=== PATIENT | male | born 1940 | race Two or more races ===

== ENCOUNTER 2023-11-26 10:58 | Outpatient (OUT) | payer MEDICARE, SELFPAY ==
--- NOTE | 2023-11-26 11:04 | XR_ITS ---
The [address] [address] Patient Name: HUSSAIN AUGUSTE MRN: [id number] date: 1940 Sex: M Assigned Patient Location: [facility] Current Patient Location: [facility] Accession/Order Number: [id number] Exam Date: 11/26/2023 11:45 Report Date: 11/26/2023 12:51 At the request of: GARETT VINCENT Procedure: XR chest 2V PROCEDURE: XR chest 2V DATE: 11/26/2023 10:45 AM CDT COMPARISONS: None. CLINICAL INDICATION: 83 years Male Preop exam FINDINGS: The cardiomediastinal silhouette and pulmonary vasculature are within normal limits. Poststernotomy changes are identified. Slight increase interstitial markings overlie the left lower lung field possibly caused by left breast tissue overlying the chest. Overall, the lungs are essentially clear. No evidence of consolidating infiltrates, masses or nodules. There is no evidence of pleural effusion or pneumothorax. XR/XR chest 2V IMPRESSION: Chest radiograph is essentially within normal limits. Electronically authenticated by: EDWIN TAYLOR Date: 11/26/2023 12:51
--- NOTE | 2023-11-26 11:55 | PM.PRESUREVA ---
History of Present Illness History of Present Illness Chief complaint: bladder tumor Narrative: Patient presents for preadmission testing accompanied by his . The patient states he has hematuria and small urinary blood clots and was evaluated with a ultrasound and it was determined that he has a bladder mass. The patient denies dysuria or fever. Review of Systems ROS Narrative REVIEW OF SYSTEMS: Negative except as stated in HPI, ten or more systems reviewed. Constitutional: No fever, chills, weakness ENT: No sore throat or epistaxis Cardiovascular: No edema, chest pain, palpitations, or Dyspnea on exertion Respiratory: No shortness of breath, cough, or wheezing Musculoskeletal: No joint pain or swelling Gastrointestinal: No abdominal pain, constipation, diarrhea, or vomiting Neurological: No numbness, tingling, weakness, or headache Psychiatric: No mood changes [facility] Medical History (Updated 11/26/23 @ 11:30 by Kassy Delgado NP) COVID-19 ?U07.1 - COVID-19 (ICD-10) Constipation ?K59.00 - Constipation, unspecified (ICD-10) Urge incontinence ?N39.41 - Urge incontinence (ICD-10) Nocturia ?R35.1 - Nocturia (ICD-10) Kidney stones ?N20.0 - Calculus of kidney (ICD-10) Dysuria ?R30.0 - Dysuria (ICD-10) BPH with obstruction/lower urinary tract symptoms ?N40.1 - Benign prostatic hyperplasia with lower urinary tract symptoms (ICD-10) ?N13.8 - Other obstructive and reflux uropathy (ICD-10) Asymptomatic microscopic hematuria ?R31.21 - Asymptomatic microscopic hematuria (ICD-10) Encounter for incision and drainage procedure ?Z76.89 - Persons encountering health services in other specified circumstances (ICD-10) Seasonal allergies ?J30.2 - Other seasonal allergic rhinitis (ICD-10) History of brachytherapy ?Z92.3 - Personal history of irradiation (ICD-10) Diabetes ?E11.9 - Type 2 diabetes mellitus without complications (ICD-10) Renal cyst ?N28.1 - Cyst of kidney, acquired (ICD-10) Hematuria ?R31.9 - Hematuria, unspecified (ICD-10) Bladder tumor ?D49.4 - Neoplasm of unspecified behavior of bladder (ICD-10) Prostate cancer ?C61 - Malignant neoplasm of prostate (ICD-10) Arthritis ?M19.90 - Unspecified osteoarthritis, unspecified site (ICD-10) Chronic renal insufficiency ?N18.9 - Chronic kidney disease, unspecified (ICD-10) Angina pectoris ?I20.9 - Angina pectoris, unspecified (ICD-10) Dyslipidemia ?E78.5 - Hyperlipidemia, unspecified (ICD-10) Hematoma of abdominal wall ?S30.1XXA - Contusion of abdominal wall, initial encounter (ICD-10) Mass of anterior abdominal wall ?R22.2 - Localized swelling, mass and lump, trunk (ICD-10) CAD (coronary artery disease) ?I25.10 - Atherosclerotic heart disease of [place] coronary artery without angina pectoris (ICD-10) Hypertension ?I10 - Essential (primary) hypertension (ICD-10) Surgical History (Updated 11/26/23 @ 11:13 by Kassy Delgado NP) H/O cystoscopy ?Z98.890 - Other specified postprocedural states (ICD-10) Hx of tonsillectomy ?Z90.89 - Acquired absence of other organs (ICD-10) History of prostate surgery ?Z98.890 - Other specified postprocedural states (ICD-10) History of hernia repair ?Z98.890 - Other specified postprocedural states (ICD-10) ?Z87.19 - Personal history of other diseases of the digestive system (ICD-10) History of appendectomy ?Z90.49 - Acquired absence of other specified parts of digestive tract (ICD-10) Hx of CABG ?Z95.1 - Presence of aortocoronary bypass graft (ICD-10) H/O colonoscopy ?Z98.890 - Other specified postprocedural states (ICD-10) Family History (Updated 11/26/23 @ 11:26 by Kassy Delgado NP) Other Breast cancer Colon cancer Family history of myocardial infarction Heart disease Social History (Updated 11/26/23 @ 11:23 by Kassy Delgado NP) Within the past year, how often did you have a drink containing alcohol: never Score interpretation: A score less than 4 is consistent with normal alcohol consumption. Smoking status: Never smoker Non-prescribed substance use: denies use Highest level of school completed/degree received: high school graduate Meds Home Medications and Allergies Allergies Allergy/AdvReac Type Severity Reaction Status Date / Time Iodinated Contrast Media Allergy Hives Verified 11/26/23 11:18 Penicillins Allergy Hives Verified 11/26/23 11:18 Exam Narrative Exam Narrative: Constitutional: Awake, alert, Very pleasant, comfortable, well-appearing, nontoxic, interactive, vital signs as charted Head: Normocephalic, atraumatic Neck: Supple, normal appearance, normal range of motion, no meningeal signs, no lymphadenopathy Respiratory: No respiratory distress, breath sounds clear Cardiovascular: Regular rate and rhythm, strong and regular heart tones Abdomen: Nontender, normal bowel sounds, soft, no CVA tenderness Musculoskeletal: Normal gait, no swelling or edema Skin: No rashes or induration, no lesions, only visible skin inspected Neuro: No neurological deficits, normal sensation Psychiatric: Oriented ?3, normal affect Assessment and Plan Assessment and Plan (1) Bladder tumor: (2) Hematuria: Plan Cystoscopy, bilateral retrograde, bilateral ureteroscopy, TURBT, possible left stent placement scheduled with Dr. Muhammad December 12, 2023.
[2023-11-26 12:43] LABS: Basophils Absolute Auto 0.1 10^3/uL (0.0-0.1); Basophils Percent Auto 0.5 % (0.2-2.0); Eosinophils Absolute Auto 0.2 10^3/uL (0.0-0.7); Eosinophils Percent Auto 1.7 % (0.9-7.0); Hematocrit 37.5 % (42.0-54.0); Hemoglobin 12.3 g/dL (14.0-18.0); Immature Granulocytes Abs Auto 0.05 10^3/uL (0.00-0.03); Immature Granulocytes Pct Auto 0.5 % (0.0-0.5); Lymphocytes Absolute Auto 1.6 10^3/uL (1.2-3.8); Mean Corpuscular HGB Conc 32.8 g/dL (29.9-35.2); Mean Corpuscular Hemoglobin 29.9 pg (25.9-34.0); Mean Corpuscular Volume 91.2 fL (80.0-94.0); Mean Platelet Volume 11.2 fL (9.5-13.5); Monocytes Absolute Auto 0.8 10^3/uL (0.3-0.8); Monocytes Percent Auto 8.7 % (1.7-12.0); Neutrophils Absolute Auto 6.6 10^3/uL (1.4-6.5); Neutrophils Percent Auto 71.6 % (43.0-75.0); Platelet Count 181 10^3/uL (150-450); Red Blood Count 4.11 10^6/uL (4.70-6.10); Red Cell Distribution Width 16.2 % (11.0-15.0); White Blood Count 9.2 10^3/uL (4.0-11.0)
[2023-11-26 12:50] LABS: INR 1.03; Partial Thromboplastin Time 31.6 sec (22.3-36.2); Prothrombin Time 10.9 sec (9.0-11.6)
[2023-11-26 13:40] LABS: Anion Gap 14.4; BUN Creatinine Ratio 16.7; Carbon Dioxide 25.8 mmol/L (21.0-32.0); Chloride 104 mmol/L (98-107); Estimated GFR (African America 34 (>=60); Estimated GFR (Non-African Ame 28 (>=60); Glucose 120 mg/dL (74-106); Potassium 4.2 mmol/L (3.5-5.1); Sodium 140 mmol/L (136-145)
== END 2023-11-26 10:59 | disposition home or self-care (01) ==
LOC: PST 11:02
PROVIDERS: PCP Family Medicine; Visit Provider Urology
DX: Z01.810 Encounter for preprocedural cardiovascular examination (principal); Z01.812 Encounter for preprocedural laboratory examination; Z01.818 Encounter for other preprocedural examination; D49.4 Neoplasm of unspecified behavior of bladder
CPT/HCPCS: 71046; 80048; 85025; 85610; 85730; G0463

== ENCOUNTER 2023-12-12 07:43 | Day surgery (SDC) | payer MEDICARE, SELFPAY ==
[2023-11-26 11:44] VITALS: BP 120/60; PULSE 59; TEMP 36.3; O2SAT 96; BMI 31.1
[2023-12-12] VITALS (13 sets, daily range): BP systolic 127–156; BP diastolic 64–76; PULSE 50–62; TEMP 36.1–36.9; O2SAT 92–96; BMI 30.5
--- NOTE | 2023-12-12 | FL_ITS ---
The [address] [address] Patient Name: HUSSAIN AUGUSTE MRN: [id number] date: 1940 Sex: M Assigned Patient Location: [facility] Current Patient Location: Accession/Order Number: [id number] Exam Date: 12/12/2023 10:25 Report Date: 12/13/2023 06:42 At the request of: GARETT VINCENT Procedure: FL fluoroscopy <1hr NON-READ EXAM: FL fluoroscopy <1hr NON-READ HISTORY: TECHNIQUE: FINDINGS: Please see Operative Report. Electronically authenticated by: RADIOLOGIST NO Date: 12/13/2023 06:42
--- OUTSIDE RECORDS SUMMARY | 2023-12-12 07:48 | XMS_ITS | CCD ---
Author Organization [facility] Care Team Providers Care Director Of Cardiopulmonary Services Name Role Phone Braulio Linares Unavailable BOYD, RUGEN M Primary Care Physician Kassy Grey CNP Primary Care Provider [phone] Kassy Grey CNP Attending Unavailable AGAPITO KIM Attending Unavailable BOYD, RUGEN M Referring Unavailable BOYD, RUGEN M Primary Care Unavailable MANAN, AURORA Attending Unavailable BOYD, RUGEN M Primary Care Unavailable MANAN, AURORA Attending Unavailable MANAN, AURORA Referring Unavailable BOYD, RUGEN M Primary Care Unavailable MANAN, AURORA Attending Unavailable MANAN, AURORA Referring Unavailable BOYD, RUGEN M Primary Care Unavailable BOYD, RUGEN M Primary Care Unavailable BOYD, RUGEN M Attending Unavailable KARLA HAYNES Attending Unavailable BOYD, RUGEN M Attending Unavailable MANUEL GRACE Attending Unavailable BOYD, RUGEN M Referring Unavailable KAT UNDERWOOD Attending Unavailable BOYD, RUGEN M Attending Unavailable KARLA HAYNES Attending Unavailable Orzech, Lanny X Attending Unavailable MUHAMMADJose R Attending Unavailable MUHAMMAD, Jose R Attending Unavailable MUHAMMAD, Jose R Attending Unavailable MUHAMMAD, Jose R Attending Unavailable MUHAMMAD, Jose R Attending Unavailable MUHAMMAD, Jose R Admitting Unavailable MUHAMMAD, Jose R Attending Unavailable Orzech, Lanny X Admitting Unavailable Orzech, Lanny X Attending Unavailable MUHAMMAD, Jose R Attending Unavailable MUHAMMAD, Jose R Attending Unavailable Orzech, Lanny X Attending Unavailable MUHAMMAD, Jose R Attending Unavailable MUHAMMAD, Jose R Referring Unavailable Allergies Allergy Classification Reported Allergen(s) Allergy Type Date of Onset Reaction(s) Facility Iodine (and Iodine containting drugs) (1 source) Iodine; Translations: [iodine] Drug Allergy Eruption of skin (disorder) [facility] Penicillins (antibiotic) (1 source) Penicillin; Translations: [penicillin] Drug Allergy Unknown (qualifier value) [facility] Shellfish (1 source) Shellfish; Translations: [shellfish] Food Allergy Unknown risk of deliberate self harm (finding) [facility] (20 sources) Iodine; Translations: [Iodine] Drug Allergy 7 Eruption of skin (disorder) [facility] (1 source) Penicillin V Drug Allergy Unknown [facility] (18 sources) Penicillin; Translations: [penicillin] Drug Allergy Unknown (qualifier value) [facility] (14 sources) Shellfish; Translations: [shellfish] Drug allergy Unknown risk of deliberate self harm (finding) [facility] (4 sources) Penicillin V; Translations: [Penicillin V Potassium 500 MG Oral Tablet] Drug Allergy 3 Skin Rashes / Eruption of skin, Hives / [facility]rt[facility] (4 sources) IV DYE, IODINE CONTAINING Allergy to substance 3 Skin Rashes / Eruption of skin, Hives / Urticaria [facility] (2 sources) Penicillins; Translations: [PENICILLINS] Propensity to adverse reactions to drug (disorder) 7 Unknown Reaction [facility] (1 source) Sodium Iodide; Translations: [SODIUM IODIDE] Drug Allergy 7 [facility] Medications Current Medications Medication Drug Class(es) Dates Sig (Normalized) Sig (Original) acetaminophen 500 mg oral capsule (9 sources) Start: 11-19-2023 take 1000 mg by mouth every six hours Acetaminophen Active 1000 MG PO Every 6 hours November 19, 2023 12:00am Start: 07-19-2023 Acetaminophen 500 MG Oral Tablet 07/19/2023 Provider: Start: 01-16-2023 End: 07-19-2023 Acetaminophen 1000 MG/100ML Intravenous Solution 01/16/2023 - 07/19/2023 Provider: take 2 capsules by m outh every six hours Acetaminophen 500 MG 2 capsule as needed Orally every 6 hrs Active acetaminophen 33.3 mg/ml / diphenhydrAMINE hydrochloride 1.67 mg/ml oral solution (9 sources) Histamine-1 Receptor Antagonist Start: 07-08-2023 acetaminophen-diphenhydramin e 1000 mg-50 mg/30 mL oral liquid 30 mL, Oral, Once a day (at bedtime) for sleep, 240 mL Start Date: 07/08/23 Status: Ordered 24 hr alfuzosin hydrochloride 10 mg extended release oral tablet (20 sources) alpha-Adrenerg ic Peng Start: 11-19-2023 take 10 mg by mouth once daily Alfuzosin Active 10 MG PO Daily November 19, 2023 12:00am Start: 01-16-2023 End: 10-21-2023 take 1 tablet by mouth every twenty-four hours Alfuzosin HCl ER 10 MG Oral Tablet Extended Release 24 Hour 01/16/2023 - 10/21/2023 Provider: Start: 04-11-2022 take 1 tablet by mouth once da britta alfuzosin 10 mg ER Tab 10 mg = 1 tab(s), Oral, Daily, # 90 tab(s), Refills(s) 3, Pharmacy: [facility] [id number], 175, cm, 09/04/21 12:23:00 EDT, Height/Length Dosing, 102.1, kg, 09/04/21 12:23:00 EDT, Weight Dosing Start Date: 04/11/22 Status: Ordered allopurinol 100 mg oral tablet (20 sources) Xanthine Oxidase Inhibitor Start: 09-07-2022 allopurinol 100 mg T ab Refills(s) 0 Start Date: 09/07/22 Status: Ordered Start: 09-07-2022 allopurinol 10 0 mg Tab Refills(s) 0 Start Date: 09/07/22 Status: Ordered aspirin 81 mg delayed release oral tablet (20 sources) Platelet Aggregation Inhibitor, Nonsteroidal Anti-inflammatory Drug Start: 11-19-2023 take 81 mg by mouth once daily Aspirin Active 81 MG PO Daily November 19, 2023 12:00am Start: 01-16-2023 Aspirin 81 MG Oral Tablet Delayed Release 01/16/2023 Provider: Start: 05-25-2019 take 1 mg by mouth once daily aspirin 81 mg oral tablet mg tab(s), Oral, Daily, Refills(s) 0 Start Date: 05/25/19 Status: Ordered carvedilol 3.125 mg oral tablet (20 sources) alpha-Adrenergic Peng, beta-Adrenergic Peng Start: 05-25-2019 take 1 mg by mouth twice daily carvedilol 3.125 mg Tab mg tab(s), Oral, BID, Refills(s) 0 Start Date: 05/25/19 Status: Ordered Start: 05-25-2019 take 1 mg by mouth twice daily carvedilol 3.125 mg Tab mg tab(s), Oral, BID, Refills(s) 0 Start Date: 05/25/19 Status: Ordered cephalexin 500 mg oral capsule (1 source) Cephalosporin Antibacterial take 1 capsule by mouth every eight hours Cephalexin 500 MG 1 capsule Orally every 8 hrs Active cholecalciferol 0.05 mg oral capsule (2 sources) Vitamin D Start: 024 take 2000 [IU] by mouth once daily Cholecalciferol (Vitamin D3) Active 2000 UNIT PO Daily November 19, 2023 12:00am take 1 capsule by [facility] every twenty-four hours Vitamin D 50 MCG (1999 UT) 1 tablet Orally Once a day Active dapagliflozin 10 mg oral tablet (20 sources) Sodium-Glucose Cotransporter 2 Inhibitor Start: 09-07-2022 End: 10-21-2023 Farxiga 10 mg oral tablet Refills(s) 0 Start Date: 09/07/22 Status: Ordered take 1 tablet by benedicto every twenty-four hours Farxiga 5 MG 1 tablet Orally Once a day Active Fish Oils (18 sources) Start: 07-08-2023 Fish Oil Oral Start Date: 07/08/23 Status: Ordered Start: 01-16-2023 Fish Oil 600 M G Oral Capsule 01/16/2023 Provider: take 1 capsule by mo [facility] twice daily Fish Oil 600 MG 1 capsule Orally Twice a day Active furosemide 20 mg oral tablet (20 sources) Loop Diuretic Start: 11-19-2023 take 20 mg by mouth twice daily Furosemide Active 20 MG PO Twice daily November 19, 2023 12:00am Start: 06-28-2020 take 1 mg by mouth once daily furosemide 20 mg Tab mg tab(s), Oral, Daily Start Date: 06/28/20 Status: Ordered take 1 tablet by benedicto every twelve hours Furosemide 20 MG 1 tablet Orally twice a day Active glimepiride 4 mg oral tablet (20 sources) Sulfonylurea Start: 11-19-2023 take 4 mg by mouth twice daily Glimepiride Active 4 MG PO Twice daily November 19, 2023 12:00am Start: 05-25-2019 take 1 mg by mouth once daily glimepiride 4 mg Tab mg tab(s), Oral, Daily, Refills(s) 0 Start Date: 05/25/19 Status: Ordered levoFLOXacin 250 mg oral tablet (2 sources) Quinolone Antimicrobial Start: 09-21-2022 End: 09-28-2022 take 1 tablet by mouth every twenty-four hours Levaquin 250 mg Tab 250 mg = 1 tab(s), Oral, q24hr, X 7 day(s), # 7 tab(s), Refills(s) 0, Pharmacy: [facility] [id number], 175, cm, 09/07/22 11:46:00 EDT, Height/Length Dosing, 102, kg, 09/07/22 11:46:00 EDT, Weight Dosing Start Date: 09/21/22 Stop Date: 09/28/22 Status: Ordered metFORMIN hydrochloride 1000 mg oral tablet (1 source) Biguanide take 1 tablet by mouth every twenty-four hours metFORMIN HCl 1000 MG 1 tablet with a meal Orally Once a day Active [place] 7-Fet-Irq-Fish Oil (Fish Oil) [phone] mg capsule,delayed release(DR/EC) (1 source) Start: 11-19-2023 take 1 capsule by mouth twice daily [place] 0-Khs-Hug-Fish Oil (Fish Oil) [phone] mg capsule,delayed release(DR/EC) Active 1 CAP PO Twice daily November 19, 2023 12:00am oxybutynin chloride 5 mg oral tablet (5 sources) Cholinergic Muscarinic Antagonist Start: 09-07-2022 take 1 tablet by mouth at bedtime oxybutynin 5 mg Tab 5 mg = 1 tab(s), Oral, Bedtime, # 30 tab(s), Refills(s) 11, Pharmacy: [facility] [id number], 175, cm, 09/07/22 11:46:00 EDT, Height/Length Dosing, 102, kg, 09/07/22 11:46:00 EDT, Weight Dosing Start Date: 09/07/22 Status: Ordered simvastatin 20 mg oral tablet (20 sources) HMG-CoA Reductase Inhibitor Start: 11-19-2023 take 20 mg by mouth once daily Simvastatin Active 20 MG PO Daily November 19, 2023 12:00am Start: 05-25-2019 take 1 mg by mouth o nce daily at bedtime simvastatin 10 mg Tab mg tab(s), Oral, Once a day (at bedtime), Refills(s) 0 Start Date: 05/25/19 Status: Ordered take 1 tablet by benedicto th every twenty-four hours Simvastatin 20 MG 1 tablet in the evening Orally Once a day Active Sodium polystyrene sulfonate (3 sources) Start: 04-10-2022 Sodium Polysty oli Sulfonate 15 GM/60ML 60 mL Orally Once a day for 3 days Mar, Active Sodium Polystyre ne Sulfonate 15 GM/60ML 60 mL Orally Once a day for 3 days Active solifenacin succinate 10 mg oral tablet (12 sources) Cholinergic Muscarinic Antagonist Start: 07-19-2023 Solifenacin Succinat e 5 MG Oral Tablet 07/19/2023 Provider: Start: 07-08-2023 End: 07-02-2024 take 1 tablet by mouth once daily solifenacin 10 mg Tab 10 mg = 1 tab(s), Oral, Daily, X 90 day(s), # 90 tab(s), Refills(s) 3, Pharmacy: [facility] [id number], 173, cm, 07/08/23 14:00:00 EST, Height/Length Dosing, 102.5, kg, 07/08/23 14:00:00 EST, Weight Dosing Start Date: 07/08/23 Stop Date: 07/02/24 Status: Ordered tamsulosin hydrochloride 0.4 mg oral capsule (8 sources) alpha-Adrenergic Peng Start: 09-24-2023 tamsulosin 0.4 mg Cap 0.4 mg = 1 cap(s) Start Date: 09/24/23 Status: Ordered Vitamin D (9 sources) Start: 07-08-2023 Vitamin D International_Un it, Oral, qWeek Start Date: 07/08/23 Status: Ordered Vitamin D 25 MCG (1000 UT) (1 source) take 1 tablet by mouth twice daily Vitamin D 25 MCG (1000 UT) 1 tablet Orally twice a day Active Vitamin D 50 MCG (1999 UT) Oral Capsule (4 sources) Start: 01-16-2023 Vitamin D 50 MCG (1999 UT) Oral Capsule 01/16/2023 Provider: Completed/Discontinued Medications Medication Drug Class(es) Dates Sig (Normalized) Sig (Original) ciprofloxacin 500 mg oral tablet (5 sources) Quinolone Antimicrobial Start: 09-07-2022 Cipro 500 mg Tab 500 mg = 1 tab(s), Oral, As Directed, Pt to take 1 tab the day before procedure and the 2nd tab the day of procedure once completed., # 2 tab(s), Refills(s) 0, Pharmacy: [facility] [id number], 175, cm, 09/07/22 11:46:00 EDT, Height/Length Dosing, 1... Start Date: 09/07/22 Status: Ordered 24 hr mirabegron 50 mg extended release oral tablet (3 sources) beta3-Adrenergic Agonist Start: 04-01-2023 End: 07-19-2023 Myrbetriq 50 MG Oral Tablet Extended Release 24 Hour 04/01/2023 - 07/19/2023 Provider: Problems Active Problems Problem Classification Problem Date Documented Date Episodic/Chronic Calculus of urinary tract (5 sources) Kidney stone; Translations: [Calculus of kidney] Onset: 11-01-2023 Episodic Cancer of prostate (17 sources) Personal history of malignant neoplasm of prostate; Translations: [History of malignant neoplasm of prostate] Onset: 09-07-2022 Episodic Chronic kidney disease (20 sources) Chronic kidney disease stage 4; Translations: [Chronic kidney disease, stage 4 (severe)] Onset: 01-16-2023 Chronic Coronary atherosclerosis and other heart disease (2 sources) Atherosclerotic heart disease of [place] coronary artery without angina pectoris; Translations: [Coronary arteriosclerosis] Onset: 09-16-2020 Chronic Coronary atherosclerosis and other heart disease (1 source) Presence of aortocoronary bypass graft; Translations: [Presence of aortocoronary bypass graft] Onset: 10-29-2023 Episodic Deficiency and other anemia (4 sources) Anemia, unspecified; Translations: [Anemia, unspecified] Episodic Deficiency and other anemia (1 source) Anemia; Translations: [Anemia, unspecified] 11-19-2023 Episodic Diabetes mellitus with complications (2 sources) 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 diabetes mellitus; Translations: [Type 2 diabetes mellitus with diabetic nephropathy] 11-19-2023 Chronic Diabetes mellitus without complication (20 sources) Type 2 diabetes mellitus in nonobese; Translations: [Type 2 diabetes mellitus without complications] Onset: 01-16-2023 Chronic Disorders of lipid metabolism (8 sources) Hyperlipidemia; Translations: [Hyperlipidemia, unspecified] Chronic Essential hypertension (20 sources) Essential hypertension; Translations: [Essential (primary) hypertension] Onset: 09-16-2020 Chronic Fluid and electrolyte disorders (6 sources) Hyperkalemia; Translations: [Hyperkalemia] Episodic Genitourinary symptoms and ill-defined conditions (20 sources) Post-micturition incontinence ; Translations: [Urge incontinence of urine] Onset: 09-24-2023 09-04-2019 Chronic Genitourinary symptoms and ill-defined conditions (20 sources) Blood in urine; Translations: [Gross hematuria] Onset: 09-07-2022 Episodic Hyperplasia of prostate (20 sources) Benign localized hyperplasia of prostate; Translations: [Benign prostatic hyperplasia without lower urinary tract symptoms] Onset: 09-07-2022 Chronic Hypertension with complications and secondary hypertension (2 sources) Hypertensive renal disease; Translations: [Hypertensive chronic kidney disease with stage 1 through stage 4 chronic kidney disease, or unspecified chronic kidney disease] 11-19-2023 Chronic Neoplasms of unspecified nature or uncertain behavior (5 sources) Neoplasm of bladder; Translations: [Neoplasm of unspecified behavior of bladder] Onset: 11-01-2023 Episodic Nutritional deficiencies (9 sources) Vitamin D deficiency; Translations: [Vitamin D deficiency, unspecified] Chronic Other diseases of bladder and urethra (1 source) Detrusor overactivity; Translations: [Overactive bladder] Onset: 07-08-2023 Chronic Other diseases of kidney and ureters (1 source) Urinary tract obstruction; Translations: [Other obstructive and reflux uropathy] Onset: 07-08-2023 Episodic Other diseases of kidney and ureters (1 source) Acquired renal cyst without neoplastic change; Translations: [Cyst of kidney, acquired] Onset: 11-01-2023 Episodic Other diseases of kidney and ureters (4 sources) Cyst of kidney 11-01-2023 Episodic Other endocrine disorders (1 source) Hyperparathyroidism; Translations: [Hyperparathyroidism, unspecified] 11-19-2023 Chronic Other endocrine disorders (1 source) Hyperparathyroidism, unspecified; Translations: [Hyperparathyroidism, unspecified] 11-19-2023 Chronic Other nutritional; endocrine; and metabolic disorders (14 sources) Body mass index 30+ - obesity 09-07-2022 Chronic Other nutritional; endocrine; and metabolic disorders (10 sources) Finding of body mass index; Translations: [Body mass index (observable entity)] Onset: 01-16-2023 Chronic Other nutritional; endocrine; and metabolic disorders (4 sources) Hyperuricemia without signs of inflammatory arthritis and tophaceous disease; Translations: [Other abnormal blood chemistry] Episodic Other nutritional; endocrine; and metabolic disorders (1 source) Hyperuricemia; Translations: [Hyperuricemia without signs of inflammatory arthritis and tophaceous disease] 11-19-2023 Episodic Screening and history of mental health and substance abuse codes (14 sources) Tobacco use and exposure - finding 09-04-2019 Chronic Unclassified (14 sources) Asymptomatic microscopic hematuria 09-07-2022 Unclassified (14 sources) Drug therapy finding 09-04-2019 Unclassified (14 sources) Long-term current use of aspirin 06-28-2020 Unclassified (1 source) Urinary Catheter Insertion or Check Onset: 07-11-2023 Unclassified (1 source) BLOOD IN URINE, TROUBLE URINATING Onset: 07-10-2023 Past or Other Problems Problem Classification Problem Date Documented Date Episodic/Chronic Complication of device; implant or graft (1 source) Unspecified complication of genitourinary prosthetic device, implant and graft, initial encounter; Translations: [Unspecified complication of genitourinary prosthetic device, implant and graft, initial encounter] Onset: 07-11-2023 Episodic Immunizations and screening for infectious disease (4 sources) Encounter for screening for human immunodeficiency virus [HIV]; Translations: [Screening For Hiv] Onset: 01-16-2023 Episodic Other screening for suspected conditions (not mental disorders or infectious disease) (8 sources) Encounter for screening for diabetes mellitus; Translations: [Diabetes Risk Test Score] Onset: 01-16-2023 Episodic Results Test Name Value Interpretation Reference Range Facility Consultation Noteon 12-10-19 Consultation Note [id number]#1.00 TIFF [facility] 11-28-2023 Lab Reports [id number]#1.00 TIFF [facility] Lab Reports [id number]#1.00 TIFF [facility] 11-27-2023 Lab Reports [id number] 0TIFF [facility] RAD - MISCon 11-27-2023 RAD - MISC [id number] TIFF [facility] Patient Educationon 11-26-19 Patient Education Oncology Transurethral Resection of Bladder Tumor Transurethral resection of a bladder tumor is the removal (resection) of cancerous tissue (tumor) from the inside wall of the bladder. The bladder is the organ that holds urine. The tumor is removed through the tube that carries urine out of the body (urethra). In a transurethral resection, a thin telescope with a light, a tiny camera, and an electric cutting edge (resectoscope) is passed through the urethra. In men, the opening of the urethra is at the end of the penis. In women, it is just above the opening of the vagina. Tell a health care provider about: ? Any allergies you have. ? All medicines you are taking, including vitamins, herbs, eye drops, creams, and vaux-jao-sylrmra medicines. ? Any problems you or family members have had with anesthetic medicines. ? Any bleeding problems you have. ? Any surgeries you have had. ? Any medical conditions you have, including recent urinary tract infections. ? Whether you are or may be . What are the risks? Generally, this is a safe procedure. However, problems may occur, including: ? Infection. ? Bleeding. ? Allergic reactions to medicines. ? Damage to nearby structures or organs. ? Difficulty urinating from blockage of the urethra or not being able to urinate (urinary retention). ? Deep vein thrombosis. This is a blood clot that can develop in your leg. ? Recurring cancer. What happens before the procedure? When to stop eating and drinking Follow instructions from your health care provider about what you may eat and drink before your procedure. These may include: ? 8 hours before your procedure ? Stop eating most foods. Do not eat meat, fried foods, or fatty foods. ? Eat only light foods, such as toast or crackers. ? All liquids are okay except energy drinks and alcohol. ? 6 hours before your procedure ? Stop eating. ? Drink only clear liquids, such as water, clear fruit juice, black coffee, plain tea, and sports drinks. ? Do not drink energy drinks or alcohol. ? 2 hours before your procedure ? Stop drinking all liquids. ? You may be allowed to take medicines with small sips of water. Medicines Ask your health care provider about: ? Changing or stopping your regular medicines. This is especially important if you are taking diabetes medicines or blood thinners. ? Taking medicines such as aspirin and ibuprofen. These medicines can thin your blood. Do not take these medicines unless your health care provider tells you to take them. ? Taking djih-dim-zkovepz medicines, vitamins, herbs, and supplements. General instructions ? If you will be going home right after the procedure, plan to have a responsible adult: ? Take you home from the hospital or clinic. You will not be allowed to drive. ? Care for you for the time you are told. ? Ask your health care provider what steps will be taken to help prevent infection. These steps may include: ? Washing skin with a germ-killing soap. ? Taking antibiotic medicine. ? Do not use any products that contain nicotine or tobacco for at least 4 weeks before the procedure. These products include cigarettes, chewing tobacco, and vaping devices, such as e-cigarettes. If you need help quitting, ask your health care provider. What happens during the procedure? ? An IV will be inserted into one of your veins. ? You will be given one or more of the following: ? A medicine to help you relax (sedative). ? A medicine that is injected into your spine to numb the area below and slightly above the injection site (spinal anesthetic). ? A medicine that is injected into an area of your body to numb everything below the injection site (regional anesthetic). ? A medicine to make you fall asleep (general anesthetic). ? Your legs will be placed in foot rests (stirrups) to open your legs and bend your knees. ? The resectoscope will be passed through your urethra and into your bladder. ? The part of your bladder with the tumor will be resected by the cutting edge of the resectoscope. ? Fluid will be passed to rinse out the cut tissues (irrigation). ? The resectoscope will then be taken out. ? A small, thin tube (catheter) will be passed through your urethra and into your bladder. The catheter will drain urine into a bag outside of your body. The procedure may vary among health care providers and hospitals. What happens after the procedure? ? Your blood pressure, heart rate, breathing rate, and blood oxygen level will be monitored until you leave the hospital or clinic. ? You may continue to receive fluids and medicines through an IV. ? You will be given pain medicine to relieve pain. ? You will have a catheter to drain your urine. ? The amount of urine will be measured. If you have blood in your urine, your bladder may be rinsed out by passing fluid through your catheter. ? You will be encouraged to walk as soon as y (more content not included)... [facility] C Urineon 11-24-2023 Bacteria identified Cx Nom (U) Microbiology PROCEDURE: Urine Culture [R1] SOURCE: U Random BODY SITE: COLLECTED DATE/TIME: 11/22/2023 11:36 EDT RECEIVED DATE/TIME: 11/22/2023 18:33 EDT START DATE/TIME: 11/22/2023 18:33 EDT FREE TEXT SOURCE: MELISA QUEVEDO, Jose MUHAMMAD MD, Jose Desai FINAL REPORTS Final Report [] Verified Date/Time: 11/24/2023 06:57 EDT 1,000 cfu/ml Mixed skin contaminants Performing Locations R1: This test was performed at: [facility], [address] [place] [address], [id number] , , [facility] Comment on above: Performed By: #### [id number] #### [facility] [address] [place] [id number] Consent for Procedure/Surger yon 11-06-2023 Consent for Procedure/Surgery [id number]. 00TIFF [facility] Consent for Procedure/Surgery [id number] 0TIFF [facility] Formson 11-06-2023 Forms [id number] TIFF [facility] Patient Educationon 11-01-19 24 Patient Education Oncology Transurethral Resection of Bladder Tumor Transurethral resection of a bladder tumor is the removal (resection) of cancerous tissue (tumor) from the inside wall of the bladder. The bladder is the organ that holds urine. The tumor is removed through the tube that carries urine out of the body (urethra). In a transurethral resection, a thin telescope with a light, a tiny camera, and an electric cutting edge (resectoscope) is passed through the urethra. In men, the opening of the urethra is at the end of the penis. In women, it is just above the opening of the vagina. Tell a health care provider about: ? Any allergies you have. ? All medicines you are taking, including vitamins, herbs, eye drops, creams, and rjjr-apx-ascrxcu medicines. ? Any problems you or family members have had with anesthetic medicines. ? Any bleeding problems you have. ? Any surgeries you have had. ? Any medical conditions you have, including recent urinary tract infections. ? Whether you are or may be . What are the risks? Generally, this is a safe procedure. However, problems may occur, including: ? Infection. ? Bleeding. ? Allergic reactions to medicines. ? Damage to nearby structures or organs. ? Difficulty urinating from blockage of the urethra or not being able to urinate (urinary retention). ? Deep vein thrombosis. This is a blood clot that can develop in your leg. ? Recurring cancer. What happens before the procedure? When to stop eating and drinking Follow instructions from your health care provider about what you may eat and drink before your procedure. These may include: ? 8 hours before your procedure ? Stop eating most foods. Do not eat meat, fried foods, or fatty foods. ? Eat only light foods, such as toast or crackers. ? All liquids are okay except energy drinks and alcohol. ? 6 hours before your procedure ? Stop eating. ? Drink only clear liquids, such as water, clear fruit juice, black coffee, plain tea, and sports drinks. ? Do not drink energy drinks or alcohol. ? 2 hours before your procedure ? Stop drinking all liquids. ? You may be allowed to take medicines with small sips of water. Medicines Ask your health care provider about: ? Changing or stopping your regular medicines. This is especially important if you are taking diabetes medicines or blood thinners. ? Taking medicines such as aspirin and ibuprofen. These medicines can thin your blood. Do not take these medicines unless your health care provider tells you to take them. ? Taking pzpi-xey-saxkepa medicines, vitamins, herbs, and supplements. General instructions ? If you will be going home right after the procedure, plan to have a responsible adult: ? Take you home from the hospital or clinic. You will not be allowed to drive. ? Care for you for the time you are told. ? Ask your health care provider what steps will be taken to help prevent infection. These steps may include: ? Washing skin with a germ-killing soap. ? Taking antibiotic medicine. ? Do not use any products that contain nicotine or tobacco for at least 4 weeks before the procedure. These products include cigarettes, chewing tobacco, and vaping devices, such as e-cigarettes. If you need help quitting, ask your health care provider. What happens during the procedure? ? An IV will be inserted into one of your veins. ? You will be given one or more of the following: ? A medicine to help you relax (sedative). ? A medicine that is injected into your spine to numb the area below and slightly above the injection site (spinal anesthetic). ? A medicine that is injected into an area of your body to numb everything below the injection site (regional anesthetic). ? A medicine to make you fall asleep (general anesthetic). ? Your legs will be placed in foot rests (stirrups) to open your legs and bend your knees. ? The resectoscope will be passed through your urethra and into your bladder. ? The part of your bladder with the tumor will be resected by the cutting edge of the resectoscope. ? Fluid will be passed to rinse out the cut tissues (irrigation). ? The resectoscope will then be taken out. ? A small, thin tube (catheter) will be passed through your urethra and into your bladder. The catheter will drain urine into a bag outside of your body. The procedure may vary among health care providers and hospitals. What happens after the procedure? ? Your blood pressure, heart rate, breathing rate, and blood oxygen level will be monitored until you leave the hospital or clinic. ? You may continue to receive fluids and medicines through an IV. ? You will be given pain medicine to relieve pain. ? You will have a catheter to drain your urine. ? The amount of urine will be measured. If you have blood in your urine, your bladder may be rinsed out by passing fluid through your catheter. ? You will be encouraged to walk as soon as y (more content not included)... Normal [facility] Urology Office/Clinic Noteon 11-01-2023 Urology Office/Clinic Note Chief Complaint Patient in office for cysto HPI Staff Cystoscopy. Abx taken. 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 History of Present Illness Tests reviewed: reviewed FISH/cytology. I have reviewed the previous health record information and history for this patient from Dr. Muhammad and Lanny De La Cruz. I have reviewed and verified the staff HPI to be accurate for this encounter. There have been no associated fever, chills, flank pain, or blood in the urine. Denies any urinary infections since last encounter. Review of Systems ROS - Provider Constitutional: denies weight loss, denies hot flashes. Eyes: denies eye problems. Gastrointestinal: denies nausea, denies vomiting. Cardiovascular: denies chest pain or angina. Integumentary: no dryness Musculoskeletal: denies musculoskeletal symptoms. ENMT: denies otolaryngeal symptoms. Respiratory: no shortness of breath. Heme/Lymph: denies easy bleeding tendency, denies easy bruising tendency. Psychiatric: no confusion, no anxiety. Genitourinary: See HPI. Procedure Operative Information Anesthesia Type: Local Procedure: Local Cystoscopy Complications: None Surgical risks, benefits, details of the procedure have been explained to the patient. Full informed consent has been obtained. Intraoperative Information Prepped: Patient is brought back to the endoscopy suite. Patient is placed in supine position. Patient prepped in the usual fashion with Betadine solution. 2% Xylocaine Jelly is placed per Urethra. After waiting several minutes, the Cystoscope is introduced. The Urethra is: Normal The Prostatic Urethra is: bilobar obstruction. The Bladder: all along the trigone/interureteric ridge, small bladder tumors are present. Clot and larger tumors over the left UO. Trabeculated: Moderate (2) The Ureteral orifices: Show efflux of clear urine in the R Specimens Removed: None Removal: Cystoscope is removed. The patient tolerated it well. Postoperative Information Patient is discharged home with antibiotic coverage. Follow up arranged. Assessment/Plan Last seen by JOSE Rodríguez, MANAGER SAP 09/24/23 for gross hematuria. 1. Bladder tumor (D49.4: Neoplasm of unspecified behavior of bladder) CT AP w/o con 07/10/23 - shows no significant hydroureteronephrosis. Mild fullness left renal pelvis. 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 Did have episode of passing more clots and urinary retention 07/10/22 which pt had marquez for short period of time. 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 Neg culture 09/24/23. Cysto IO today without complications. Pt to complete prophy abx. -Will schedule cysto, bilateral retrogrades, definite L urs, poss bilat urs, TURBT, L stent placement. The procedure risks, benefits, details, and treatment alternatives have been discussed with the patient. These include bleeding -- sometimes to the point of hemorrhaging, infection, risk of bladder perforation, recurrence of bladder tumor in 60-70% of patients, need for indwelling catheter for a variable amount of time, as well as the rare risk of needing an open operation to repair the bladder, among others. Additional therapy as well as follow-up bladder evaluation will most likely be required. Full informed consent has been obtained. Will order General anesthesia. 2. Urinary retention (R33.9: Retention of urine, unspecified) PVR (mL): 07/08/23 - 55 (Solifenacin increased to 10 mg that day) 07/23/23 - 19 09/24/23 - 0 Pt called 07/09/23 noting that he was passing blood clots and proceeded to [facility] where marquez was placed. No documented degree of retention. Marquez removed 07/15/23 Likely due to clot retention. 3. Nocturia (R35.1: Nocturia) Taking Solifenacin 10mg qd. Experiencing dry mouth, but tolerable. Nocturia improved from 5x per night to 3x. 4. Incontinence without sensory awareness (N39.42: Incontinence without sensory awareness) Most bothersome urinary sx. Has noticed that he is leaking since starting Flomax from PCP. 5. BPH with urinary obstruction (N40.1: Benign prostatic hyperplasia with lower urinary tract symptoms) IPSS (19) Taking tamsulosin 0.4 mg qd per PCP. Has taken Alfuzosin previously, no longer taking. 6. Personal history of prostate cancer (Z85.46: Personal history of malignant neoplasm of prostate) PSA: 09/07/22 - 0.1 S/p brachytherapy 2002. 7. Kidney stone (N20.0: Calculus of kidney) CT AP w/o con 07/10/23 - nonobstructing 3 mm right renal calculus. No urinary obstruction, no hydro. 8. Renal cyst (N28.1: Cyst of kidney, acquired) CT AP w/o con 07/10/23 - exophytic cyst of the interpolar left kidney measures 1 cm, not requiring dedica (more content not included)... Normal [facility] Comment on above: Result Comment: Elec tronically Signed By: Jose MUHAMMAD MD\.br\Date and Time Signed: 11/01/23 12:04 EDT\.br\Electronically Co-Signed By: Raiza Brush\.br\Date and Time Co-Signed: 11/01/23 12:00 EDT\.br\Electronically Co-Signed By: Raiza Brush\.br\Date and Time Co-Signed: 11/01/23 12:02 EDT Urine Cytology ([facility])on 09-27-2023 Microscopic exam Cytology (U) [Interp] Diagnosis Info Invalid Interpretation Code [facility] Comment on above: Result Comment: A:Ur ine,Urine:Voided Interpretation - MicroScopic Description - Adequacy - Gross Description Site ID:A color Yellow fixative Alcohol Specimen designated Urine received in alcohol preservative and labeled with the patient?s name, consists of 50ml clear yellow fluid. Electronically signed by : on: 09/27/2023 13:01:07 Performed By: #### 1 [id number] ####[facility] [address] [place] [address] C Urineon 09-26-2023 Bacteria identified Cx Nom (U) Microbiology PROCEDURE: Urine Culture [R1] SOURCE: U Random BODY SITE: COLLECTED DATE/TIME: 09/24/2023 15:27 EDT RECEIVED DATE/TIME: 09/24/2023 18:32 EDT START DATE/TIME: 09/24/2023 18:32 EDT FREE TEXT SOURCE: Orren MANAGER SAP, INSTALLMENT ACCOUNT CHECKER-C, Orzech MANAGER SAP, INSTALLMENT ACCOUNT CHECKER-C, Lanny X Lanny X FINAL REPORTS Final Report [] Verified Date/Time: 09/26/2023 11:36 EDT 1,000 cfu/ml Mixed skin contaminants Performing Locations R1: This test was performed at: [facility], [address] [place] [address], [address] , , [facility] Comment on above: Performed By: #### 2 [id number] ####[address] [place] [address] Screenson 09-26-2023 Screens [id number]. 00TIFF [facility] Screens [id number]. 00TIFF Normal [facility] Patient Educationon 09-24-19 24 Patient Education Obstetrics and Gynecology Overactive Bladder, Adult Overactive bladder is a condition in which a person has a sudden and frequent need to urinate. A person might also leak urine if he or she cannot get to the bathroom fast enough (urinary incontinence). Sometimes, symptoms can interfere with work or social activities. What are the causes? Overactive bladder is associated with poor nerve signals between your bladder and your brain. Your bladder may get the signal to empty before it is full. You may also have very sensitive muscles that make your bladder squeeze too soon. This condition may also be caused by other factors, such as: ? Medical conditions: ? Urinary tract infection. ? Infection of nearby tissues. ? Prostate enlargement. ? Bladder stones, inflammation, or tumors. ? Diabetes. ? Muscle or nerve weakness, especially from these conditions: ? A spinal cord injury. ? Stroke. ? Multiple sclerosis. ? Parkinson's disease. ? Other causes: ? Surgery on the uterus or urethra. ? Drinking too much caffeine or alcohol. ? Certain medicines, especially those that eliminate extra fluid in the body (diuretics). ? Constipation. What increases the risk? You may be at greater risk for overactive bladder if you: ? Are an older adult. ? Smoke. ? Are going through menopause. ? Have prostate problems. ? Have a neurological disease, such as stroke, dementia, Parkinson's disease, or multiple sclerosis (MS). ? Eat or drink alcohol, spicy food, caffeine, and other things that irritate the bladder. ? Are overweight or obese. What are the signs or symptoms? Symptoms of this condition include a sudden, strong urge to urinate. Other symptoms include: ? Leaking urine. ? Urinating 8 or more times a day. ? Waking up to urinate 2 or more times overnight. How is this diagnosed? This condition may be diagnosed based on: ? Your symptoms and medical history. ? A physical exam. ? Blood or urine tests to check for possible causes, such as infection. You may also need to see a health care provider who specializes in urinary tract problems. This is called a urologist. How is this treated? Treatment for overactive bladder depends on the cause of your condition and whether it is mild or severe. Treatment may include: ? Bladder training, such as: ? Learning to control the urge to urinate by following a schedule to urinate at regular intervals. ? Doing Kegel exercises to strengthen the pelvic floor muscles that support your bladder. ? Special devices, such as: ? Biofeedback. This uses sensors to help you become aware of your body's signals. ? Electrical stimulation. This uses electrodes placed inside the body (implanted) or outside the body. These electrodes send gentle pulses of electricity to strengthen the nerves or muscles that control the bladder. ? Women may use a plastic device, called a pessary, that fits into the vagina and supports the bladder. ? Medicines, such as: ? Antibiotics to treat bladder infection. ? Antispasmodics to stop the bladder from releasing urine at the wrong time. ? Tricyclic antidepressants to relax bladder muscles. ? Injections of botulinum toxin type A directly into the bladder tissue to relax bladder muscles. ? Surgery, such as: ? A device may be implanted to help manage the nerve signals that control urination. ? An electrode may be implanted to stimulate electrical signals in the bladder. ? A procedure may be done to change the shape of the bladder. This is done only in very severe cases. Follow these instructions at home: Eating and drinking ? Make diet or lifestyle changes recommended by your health care provider. These may include: ? Drinking fluids throughout the day and not only with meals. ? Cutting down on caffeine or alcohol. ? Eating a healthy and balanced diet to prevent constipation. This may include: ? Choosing foods that are high in fiber, such as beans, whole grains, and fresh fruits and vegetables. ? Limiting foods that are high in fat and processed sugars, such as fried and sweet foods. Lifestyle ? Lose weight if needed. ? Do not use any products that contain nicotine or tobacco. These include cigarettes, chewing tobacco, and vaping devices, such as e-cigarettes. If you need help quitting, ask your health care provider. General instructions ? Take nwyt-yny-crjfpng and prescription medicines only as told by your health care provider. ? If you were prescribed an antibiotic medicine, take it as told by your health care provider. Do not stop taking the antibiotic even if you start to feel better. ? Use any implants or pessary as told by your health care provider. ? If needed, wear pads to absorb urine leakage. ? Keep a log to track how much and when you drink, and when you need to urinate. This will help your health care provider monitor yo (more content not included)... Normal [facility] URINALYSISOrdered By: SYSTEM SYSTEM on 09-24-2023 Color (U) Colorless 1 *ABN* (09/24/23 3:27 PM) Invalid Interpretation Code Yellow [facility] UA Auto SS Comment on above: Interpretive Data: M icroscopic readings are only performed on those samples that meet specific criteria set forth by [facility]. Glucose (U) [Mass/Vol] 4 mg/dL Invalid Interpretation Code Negativemg/d L [facility] UA Auto SS Ketones Ql (U) Negative Normal Negativemg/d L [facility] UA Auto SS UA Blood 3+ mg/dL Invalid Interpretation Code Negativemg/d L [facility] UA Auto SS UA Clarity Clear (09/24/23 3:27 PM) Normal Clear [facility] UA Auto SS UA Leuk Est Negative Normal NegativeLeu/ uL [facility] UA Auto SS UA Mucous Trace graded/LPF Normal Negativegra d ed/LPF FT UA Auto SS UA Nitrite Negative Normal Negativemg/d L [facility] UA Auto SS UA pH 5.5 *NA* (09/24/23 3:27 PM) Invalid Interpretation Code 5.0 - 9.0 FT UA Auto SS UA Protein Negative Normal Negativemg/d L [facility] UA Auto SS UA RBC 31-75 graded/HPF Invalid Interpretation Code 0-3graded/HP F [facility] UA Auto SS UA Spec Grav 1.007 *NA* (09/24/23 3:27 PM) Invalid Interpretation Code 1.005 - 1.030 [facility] UA Auto SS UA Urobilinogen Negative Normal Negativemg/d L [facility] UA Auto SS UA WBC 16-25 graded/HPF Invalid Interpretation Code 0-5graded/HP F [facility] UA Auto SS UA WBC Clump 0-3 graded/HPF Invalid Interpretation Code FT UA Auto SS Urobilinogen (U) [Mass/Vol] Negative Normal Negativemg/d L [facility] UA Auto SS URINALYSISOrdered By: Erika Roa on 09-24-2023 UA Spec Desc Random Urine (09/24/23 3:27 PM) Normal [facility] UA Auto SS Urinalysis with Microon 04-0 Color (U) Colorless Abnormal Yellow [facility] Comment on above: Result Comment: Micr oscopic readings are only performed on those samples that meet specific criteria set forth by [facility]. Performed By: #### 4 [id number] ####[facility] [address] [place] [address] Ketones Ql (U) Negative Normal Negative [facility] Comment on above: Performed By: #### 4 [id number] ####[facility] [address] [place] [address] UA Blood 3+ mg/dL Abnormal Negative [facility] Comment on above: Performed By: #### 4 [id number] ####[facility] [address] [facility] [place] [address] UA Clarity Clear Normal Clear [facility] Comment on above: Performed By: #### 4 [id number] ####[facility] [address] [facility] [place] [address] UA Glucose 4+ mg/dL Abnormal Negative [facility] Comment on above: Performed By: #### 4 [id number] ####[facility] [address] [facility] [place] [address] UA Leuk Est Negative Normal Negative [facility] Comment on above: Performed By: #### 4 [id number] ####[address] [place] [address] UA Mucous Trace Normal Negative [facility] Comment on above: Performed By: #### 4 [id number] ####[address] [address] UA Nitrite Negative Normal Negative [facility] Comment on above: Performed By: #### 4 [id number] ####[facility] [address] [place] [address] UA pH 5.5 Invalid Interpretation Code 5.0-9.0 [facility] Comment on above: Performed By: #### 4 [id number] ####[address] [address] UA Protein Negative Normal Negative [facility] Comment on above: Performed By: #### 4 [id number] ####[facility] [address] [place] [address] UA RBC 31-75 Abnormal 0-3 [facility] Comment on above: Performed By: #### 4 [id number] ####[address] [facility] [place] [address] UA Spec Grav 1.007 Invalid Interpretation Code 1.005-1.030 [facility] Comment on above: Performed By: #### 4 [id number] ####[address] [place] [address] UA Urobilinogen Negative Normal Negative [facility] Comment on above: Performed By: #### 4 [id number] ####[facility] [address] [place] [address] UA WBC 16-25 Abnormal 0-5 [facility] Comment on above: Performed By: #### 4 [id number] ####[facility] [address] [place] [address] UA WBC Clump 0-3 Abnormal [facility] Comment on above: Performed By: #### 4 [id number] ####[facility] [address] [place] [address] Urobilinogen (U) [Mass/Vol] Negative Normal Negative [facility] Comment on above: Performed By: #### 4 [id number] ####[facility] [address] [place] [address] UA Spec Desc Random Urine Normal [facility] Comment on above: Performed By: #### 4 [id number] ####[facility] [address] [place] [address] Urine Cytology ([facility])on 0 09-24-2023 UC Method of Extraction Voided Normal [facility] Comment on above: Performed By: #### 1 [id number] ####[facility] [address] [place] [address] UC Number of Jars 1 Invalid Interpretation Code [facility] Comment on above: Performed By: #### 1 [id number] ####[facility] [address] [place] [address] UC Specimen Urine Normal [facility] Comment on above: Performed By: #### 1 [id number] ####[facility] [address] [place] [address] UC Type of Service Technical Only Normal Fi [facility] Comment on above: Performed By: #### 1 [id number] ####[facility] [address] [place] [address] Urology Office/Clinic Noteon 09-24-2023 Urology Office/Clinic Note Chief Complaint 6 month HPI Staff PRW pt. 5m DX: Personal Hx of Prostate Cancer, BPH & Gross Hematuria S/P Brachytherapy 2002 *Alfuzosin 10mg ER QD & at that time pt had DC'd Oxybutynin due to bothersome SE's. Was started on Myrbetriq 50mg ER QD therapy at that time. Pt then called our office 04/30/24 stating that Myrbetriq was not helping, and it was too expensive. Pt then started on Trospium 20mg qhs, in which he called 05/28/24 stating that sx had not improved. He was then switched to Solifenacin 5mg qd therapy. Pt then seen by BRODERICK 07/08/23 DX: Nocturia, BPH, Gross Hematuria & OAB. Solifenacin was increased to 10mg at that time. Pt then called our office 07/10/23 c/o small blood clots. Had gone to [facility] 07/10/23 & they placed a catheter. (No PVR noted in ER note) NEG C&S at that time. UA did show LARGE blood, NEG leuks & + Nitrates. CMP 07/10/23- BUN 39, Crea 2.15 & eGFR 30 CT ap w/o *Unchanged nonobstructing Rt Renal Calculus (Hospital did want to admit pt due to RACHAEL, however, pt declined) Pt then returned to [facility] ER 07/11/23 CC: catheter leaking & pink tinged urine Catheter was repositioned & pt DC'd. Catheter was removed in our office 07/15/23. Pt then called our office 07/18/23 asking when to resume Solifenacin therapy. KB requested PVR. PVR 07/23/23- 19ml Pt was instructed by staff to restart Solifenacin, he also noted that his PCP had started him on Tamsulosin qd. Pt. getting up 3x's at night, intermittency stream occasionally, weak stream occasionally. Pt. states he will urinate every 2 hours and occasionally sooner. Pt. states is leaking without awareness. Pt. states at night his urinary is better then during the day. PVR 0mL. History of Present Illness I have reviewed and verified the staff HPI to be accurate for this encounter. Portions of this record may have been created with voice recognition artificial intelligence software, specifically [employer], En[employer] and or Recovers. Substitutions may have occurred due to the inherent limitations of voice recognition and artificial intelligence software. Review of Systems PHQ Score Initial Depression Screen Score: 0 SCORE Physical Exam Vitals & Measurements HR: 63(Peripheral) RR: 17 BP: 117/61 HT: 68 in HT: 173 cm WT: 102.5 kg WT: 225.5 lb BMI: 34.25 Assessment/Plan CT AP w/o con 07/10/23 - nonobstructing 3 mm right renal calculus. No urinary obstruction, no hydro. 1. 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 Did have episode of passing more clots and urinary retention 07/10/22 which pt had marquez for short period of time UA today w/ moderate blood. Discussed w/ pt that inflammatory changes noted on previous cysto are likely the cause of bleeding, previous brachytherapy for prostate CA. No mention of continued surveillance of this area, but will discuss w/ PRW given continued presence of blood. Will let pt know if another cysto is warranted at this time. - Send urine today for UCX and cytol today Ordered: Urinalysis with Micro Urine Culture Urine Cytology ([facility]) Urine Cytology ([facility]) 2. Urinary retention (R33.9: Retention of urine, unspecified) PVR 07/08/23 55 ml, solifenacin increased to 10 mg that day Pt called 07/09/23 noting that he was passing blood clots and proceeded to [facility] ER where marquez was placed. No documented degree of retention. Marquez removed 07/15/23 PVR 07/23/23 19 ml PVR today 0 Likely d/t clot retention 3. Nocturia (R35.1: Nocturia) improved to 3x/night from 5x/night Pt is happy w/ these results Currently taking solifenacin 10 mg QD admits to dry mouth w/ med increase discussed decreasing dose d/t SE, but pt states that dry mouth is tolerable Continue current dose, call for refills. 4. 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 BPH with urinary obstruction (N40.1: Benign prostatic hyperplasia with lower urinary tract symptoms) IPSS 19 moderate sxs of BPH most bothersome sx is leaking, see #4 Pt is currently taking tamsulosin 0.4 mg QD per PCP, STOP alfuzosin. He is tolerating this well w/o SE. Continue current dose. Ordered: [id number] Measure Post Void residual urine and/or bladder capacity by US (more content not included)... [facility] Comment on above: Result Comment: Elec tronically Signed By: JOSE De La Cruz APRN, Lanny Ford\.br\Date and Time Signed: 09/24/23 16:57 EDT RAD - CT Reporton 07-23-2023 RAD - CT Report [id number] 10 [id number]#1.0 0TIFF [facility] Ambulatory Visit Summaryon 0 07-15-2023 Ambulatory Visit Summary HUSSAIN AUGUSTE :1940 Visit Date:07/15/2023 Ambulatory Visit Instructions Your Care Team Attending Physician - MELISA QUEVEDO, Jose Desai Primary Care Physician - BOYD QUEVEDO, JENA Bonilla This Is Your Medications List acetaminophen-diphenhy drAMINE (acetaminophen-diphenh ydramine 1000 mg-50 mg/30 mL oral liquid) alfuzosin (alfuzosin 10 mg ER Tab) allopurinol (allopurinol 100 mg Tab) aspirin (aspirin 81 mg oral tablet) carvedilol (carvedilol 3.125 mg Tab) dapagliflozin (Farxiga 10 mg oral tablet) ergocalciferol (Vitamin D) furosemide (furosemide 20 mg Tab) glimepiride (glimepiride 4 mg Tab) omega-3 polyunsaturated fatty acids (Fish Oil) simvastatin (simvastatin 10 mg Tab) solifenacin (solifenacin 10 mg Tab) Procedures Performed Cystoscopy (10/02/2022), Cystoscopy (06/28/2020), Brachytherapy of prostate using fluoroscopic guidance (2002), Appendectomy, CABG - Coronary artery bypass graft, Cardiac catheterisation, left heart, History of hernia repair, Tonsillectomy. What to do next Scheduled Follow-Up Appointments Saturday 11:00 AM EDT With: MELISA QUEVEDO, Jose Desai Where: [facility] ED Note-Physicianon 07-15-19 ED Note-Physician [id number] 06 [id number]#1.00 TIFF [facility] ED Note-Physician [id number] 06 [id number]#1.00 TIFF [facility] Comment on above: Other Comment: HOWARD SAGASTUME BASIC METABOLIC PANLon 07-11 Anion gap [Moles/Vol] 10 mmol/L Normal 5-15 [facility] Comment on above: Performed By: #### C KWESI [facility], 71459-3 #### [facility] ([id number]) [address] [place] [address] 55326 Calcium [Mass/Vol] 9.2 mg/dL Normal 8.5-10.5 [facility] Comment on above: Performed By: #### C JOJO OROSCO, 78569-1 #### [facility] ([id number]) [address] [place] [address] 85273 Chloride [Moles/Vol] 100 mmol/L Normal 98-109 [facility] Comment on above: Performed By: #### C JOJO OROSCO, #### [facility] ([id number]) [address] [place] [address] 74231 CO2 [Moles/Vol] 23 mmol/L Normal 22-32 [facility] Comment on above: Performed By: #### C JOJO OROSCO, #### [facility] ([id number]) [address] [place] [address] 48378 Creatinine [Mass/Vol] 2.15 mg/dL High 0.70-1.20 [facility] Comment on above: Result Comment: METH OD TRACEABLE TO IDMS STANDARD Performed By: #### C JOJO OROSCO, #### [facility] ([id number]) [address] [place] [address] 00443 GFR/1.73 sq M.predicted among non-blacks MDRD (S/P/Bld) [Vol rate/Area] 30 mL/min/{1.73_m2} Low >59 [facility] Comment on above: Result Comment: Reported eGFR is based on the CKD-EPI 2020 equation that does not use a race coefficient. Performed By: #### C JOJO OROSCO, #### [facility] ([id number]) [address] [place] [address] 03321 Glucose [Mass/Vol] 115 mg/dL High 65-99 [facility] Comment on above: Performed By: #### JOJO Hampton BCA, 42964-3 #### [facility] ([id number]) [address] [place] [address] 03416 Potassium [Moles/Vol] 4.0 mmol/L Normal 3.5-5.0 [facility] Comment on above: Performed By: #### C JOJO OROSCO, #### [facility] ([id number]) [address] [place] [address] 32549 Sodium [Moles/Vol] 133 mmol/L Low 134-146 [facility] Comment on above: Performed By: #### C JOJO OROSCO, #### [facility] ([id number]) [address] [place] [address] 44397 Urea nitrogen [Mass/Vol] 39 mg/dL High 5-27 [facility] Comment on above: Performed By: #### Memo OROSCO [facility], #### [facility] ([id number]) [address] [place] [address] 65263 CBC AND AUTO DIFFon 07-11-19 ABSOLUTE BASOPHIL 0.1 X10E9/L Normal 0.0-0.2 [facility] Comment on above: Performed By: #### Memo OROSCO [facility], #### [facility] ([id number]) [address] [place] [address] 71623 ABSOLUTE NEUTROPHIL 10.4 X10E9/L High 1.5-6.6 [facility] Comment on above: Performed By: #### Memo OROSCO [facility], #### [facility] ([id number]) [address] [place] [address] 16007 Basophils/100 WBC (Bld) 0.5 % Normal [facility] Comment on above: Performed By: #### Memo OROSCO [facility], #### [facility] ([id number]) [address] [place] [address] 89285 Eosinophils (Bld) [#/Vol] 0.1 10*3/uL Normal 0.0-0.4 [facility] Comment on above: Performed By: #### Memo OROSCO [facility], #### [facility] ([id number]) [address] [place] [address] 71219 Eosinophils/100 WBC (Bld) 0.8 % Normal [facility] Comment on above: Performed By: #### JOJO Hampton BCA, #### [facility] ([id number]) [address] [place] [address] 08251 Erythrocyte distribution width (RBC) [Ratio] 16.5 % High 11.5-15.0 [facility] Comment on above: Performed By: #### Memo OROSCO [facility], #### [facility] ([id number]) [address] [place] [address] 35590 Hematocrit (Bld) [Volume fraction] 38.1 % Low 39-49 [facility] Comment on above: Performed By: #### Memo OROSCO [facility], #### [facility] ([id number]) [address] [place] [address] 57444 Hemoglobin (Bld) [Mass/Vol] 13.0 g/dL Normal 13.0-17.0 [facility] Comment on above: Performed By: #### Memo OROSCO [facility], #### [facility] ([id number]) [address] [place] [address] 66414 Lymphocytes (Bld) [#/Vol] 1.4 10*3/uL Normal 1.0-3.5 [facility] Comment on above: Performed By: #### Memo OROSCO [facility], #### [facility] ([id number]) [address] [place] [address] 68600 Lymphocytes/100 WBC (Bld) 11.1 % Normal [facility] Comment on above: Performed By: #### Memo OROSCO [facility], #### [facility] ([id number]) [address] [place] [address] 93293 MCH (RBC) [Entitic mass] 30.0 pg Normal 27-34 [facility] Comment on above: Performed By: #### JOJO Hampton BCA, #### [facility] ([id number]) [address] [place] [address] 89664 MCHC (RBC) [Mass/Vol] 34.0 g/dL Normal 32-36 [facility] Comment on above: Performed By: #### C KWESI [facility], #### [facility] ([id number]) [address] [place] [address] 94801 MCV (RBC) [Entitic vol] 88 fL Normal 80-100 [facility] Comment on above: Performed By: #### Memo OROSCO [facility], #### [facility] ([id number]) [address] [place] [address] 63232 Monocytes (Bld) [#/Vol] 0.8 10*3/uL Normal 0-0.9 [facility] Comment on above: Performed By: #### Memo OROSCO [facility], #### [facility] ([id number]) [address] [place] [address] 61701 Monocytes/100 WBC (Bld) 6.0 % Normal [facility] Comment on above: Performed By: #### Memo OROSCO [facility], #### [facility] ([id number]) [address] [place] [address] 55929 Neutrophils/100 WBC (Bld) 81.6 % Normal [facility] Comment on above: Performed By: #### Memo OROSCO [facility], #### [facility] ([id number]) [address] [place] [address] 39865 Platelet mean volume (Bld) [Entitic vol] 8.5 fL Normal 7-12 [facility] Comment on above: Performed By: #### JOJO Hampton BCA, #### [facility] ([id number]) [address] [place] [address] 22393 Platelets (Bld) [#/Vol] 193 10*3/uL Normal 150-450 [facility] Comment on above: Performed By: #### JOJO Hampton BCA, #### [facility] ([id number]) [address] [place] [address] RBC COUNT 4.32 X10E12/L Normal 4.10-5.70 [facility] Comment on above: Performed By: #### C BCA, BMP, 37964-0 #### [facility] ([id number]) [address] [place] [address] 37377 WBC (Bld) [#/Vol] 12.7 10*3/uL High 4.0-11.0 [facility] Comment on above: Performed By: #### C BCA, BMP, 78728-1 #### [facility] ([id number]) [address] [place] [address] ABDOMEN AND PELVIS WO CON Ton 07-11-2023 CT ABDOMEN AND PELVIS WO CONT CT ABDOMEN AND PELVIS WO CONT CLINICAL INFORMATION: Abdominal/flank pain, stone suspected normal caliber aorta with moderate calcification. TECHNIQUE: CT Abdomen and Pelvis without intravenous contrast. All CT scans at this facility use dose modulation, iterative reconstruction, and/or weight based dosing when appropriate to reduce radiation dose to as low as reasonably achievable. COMPARISON: No enlarged nodes by size criteria. FINDINGS: Limited evaluation of the solid organs, vessels without contrast. Subpleural ground glass/reticular opacities left lower lobe, unchanged.. No acute abnormality of the pancreas, adrenals, spleen. Exophytic cyst of the interpolar left kidney measures 14] minutes, 1 cm, not requiring dedicated follow-up. Nonobstructing 3 mm right renal calculus. No obstructing nephrolithiasis. A catheter in the bladder. No bowel obstruction. Sigmoid diverticulosis. No free fluid or free air. Mesenteric haziness with sparing about lymph nodes, similar to prior, and correlate with any nonspecific panniculitis/mesenteri tis. Normal caliber aorta with moderate calcification. No enlarged nodes by size criteria. Prostate brachytherapy changes. Fat-containing periumbilical hernias. Degenerative changes of the hips and spine without acute osseous abnormality. IMPRESSION: * No significant hydroureteronephrosis. Mild fullness left renal pelvis. Unchanged nonobstructing right renal calculus. * Additional findings/limitations as above. Finalized by Myke Hargrove MD on 07/10/2023 11:54 PM Normal [facility] MAGNESIUMon 07-11-2023 Magnesium [Mass/Vol] 2.2 mg/dL Normal 1.8-2.6 [facility] Comment on above: Performed By: #### C BCA, BMP, 94617-0 #### [facility] ([id number]) [address] [place] [address] 86811 Screenson 07-10-2023 Screens [id number] 02 [id number] TIFF [facility] URINE CULTUREon 07-10-2023 Bacteria identified Cx Nom (U) CULTURE RESULTS NO GROWTH AT <1000 CFU/mL Normal [facility] Comment on above: Performed By: #### 6 30-4 #### [facility] ([id number]) [address] [place] [address], [address] [place] [address] URN MACROSCOPIC NURon 2023 BILIRUBIN TOY Small Abnormal NEG [facility] Comment on above: Performed By: #### N UM #### [facility] ([id number]) [address] [place] [address] 29828 BLOOD/HGB TOY Large Abnormal NEG [facility] Comment on above: Performed By: #### N UM #### [facility] ([id number]) [address] [place] [address] 38045 GLUCOSE TOY >=1000 Abnormal NEG [facility] Comment on above: Performed By: #### N UM #### [facility] ([id number]) [address] [place] [address] 33231 KETONES TOY Negative Normal NEG [facility] Comment on above: Performed By: #### N UM #### [facility] ([id number]) [address] [place] [address] 23596 LEUKOCYTE ESTERASE TOY Negative Normal NEG [facility] Comment on above: Performed By: #### N UM #### [facility] ([id number]) [address] [place] [address] 14073 NITRITE TOY Positive Abnormal NEG [facility] Comment on above: Performed By: #### N UM #### [facility] ([id number]) [address] [place] [address] 72606 PH TOY 5.5 Normal 5.0-8.5 [facility] Comment on above: Performed By: #### N UM #### [facility] ([id number]) [address] [place] [address] 99651 PROTEIN TOY >=300 Abnormal NEG [facility] Comment on above: Performed By: #### N UM #### [facility] ([id number]) [address] [place] [address] 92467 SPECIFIC GRAVITY TOY 1.010 Normal 1.003-1.035 [facility] Comment on above: Performed By: #### N UM #### [facility] ([id number]) [address] [place] [address] 45124 UROBILINOGEN TOY 0.2 eu/dL Normal <1.1 [facility] Comment on above: Performed By: #### N UM #### [facility] ([id number]) [address] [place] [address] 13204 Ambulatory Visit Summaryon 0 07-08-2023 Ambulatory Visit Summary HUSSAIN AUGUSTE :1940 Visit Date:07/08/2023 Ambulatory Visit Instructions Your Diagnosis Incomplete bladder emptying BPH with urinary obstruction Gross hematuria Other obstructive and reflux uropathy Tests Performed Urnls Dip Stick Auto w/o Microscopy POC [id number] Your Care Team Attending Physician - Jono FARLEY, JOSE, Lanny Ford Primary Care Physician - JENA NIX MD This Is Your Medications List acetaminophen-diphenhy drAMINE (acetaminophen-diphenh ydramine 1000 mg-50 mg/30 mL oral liquid) alfuzosin (alfuzosin 10 mg ER Tab) allopurinol (allopurinol 100 mg Tab) aspirin (aspirin 81 mg oral tablet) carvedilol (carvedilol 3.125 mg Tab) dapagliflozin (Farxiga 10 mg oral tablet) ergocalciferol (Vitamin D) furosemide (furosemide 20 mg Tab) glimepiride (glimepiride 4 mg Tab) omega-3 polyunsaturated fatty acids (Fish Oil) simvastatin (simvastatin 10 mg Tab) solifenacin (solifenacin 5 mg Tab) Procedures Performed Cystoscopy (10/02/2022), Cystoscopy (06/28/2020), Brachytherapy of prostate using fluoroscopic guidance (2002), Appendectomy, CABG - Coronary artery bypass graft, Cardiac catheterisation, left heart, History of hernia repair, Tonsillectomy. Discharge Vitals Heart Rate (Peripheral) 58 Blood Pressure 130/62 Height 173 cm Height 68 in Weight 102.5 kg Weight 225.5 lb BMI 34.25 What to do next Scheduled Follow-Up Appointments Saturday 11:00 AM EDT With: MELISA QUEVEDO, Jose Desai Where: [facility] Patient Educationon 07-08-19 Patient Education Obstetrics and Gynecology Overactive Bladder, Adult Overactive bladder is a condition in which a person has a sudden and frequent need to urinate. A person might also leak urine if he or she cannot get to the bathroom fast enough (urinary incontinence). Sometimes, symptoms can interfere with work or social activities. What are the causes? Overactive bladder is associated with poor nerve signals between your bladder and your brain. Your bladder may get the signal to empty before it is full. You may also have very sensitive muscles that make your bladder squeeze too soon. This condition may also be caused by other factors, such as: ? Medical conditions: ? Urinary tract infection. ? Infection of nearby tissues. ? Prostate enlargement. ? Bladder stones, inflammation, or tumors. ? Diabetes. ? Muscle or nerve weakness, especially from these conditions: ? A spinal cord injury. ? Stroke. ? Multiple sclerosis. ? Parkinson's disease. ? Other causes: ? Surgery on the uterus or urethra. ? Drinking too much caffeine or alcohol. ? Certain medicines, especially those that eliminate extra fluid in the body (diuretics). ? Constipation. What increases the risk? You may be at greater risk for overactive bladder if you: ? Are an older adult. ? Smoke. ? Are going through menopause. ? Have prostate problems. ? Have a neurological disease, such as stroke, dementia, Parkinson's disease, or multiple sclerosis (MS). ? Eat or drink alcohol, spicy food, caffeine, and other things that irritate the bladder. ? Are overweight or obese. What are the signs or symptoms? Symptoms of this condition include a sudden, strong urge to urinate. Other symptoms include: ? Leaking urine. ? Urinating 8 or more times a day. ? Waking up to urinate 2 or more times overnight. How is this diagnosed? This condition may be diagnosed based on: ? Your symptoms and medical history. ? A physical exam. ? Blood or urine tests to check for possible causes, such as infection. You may also need to see a health care provider who specializes in urinary tract problems. This is called a urologist. How is this treated? Treatment for overactive bladder depends on the cause of your condition and whether it is mild or severe. Treatment may include: ? Bladder training, such as: ? Learning to control the urge to urinate by following a schedule to urinate at regular intervals. ? Doing Kegel exercises to strengthen the pelvic floor muscles that support your bladder. ? Special devices, such as: ? Biofeedback. This uses sensors to help you become aware of your body's signals. ? Electrical stimulation. This uses electrodes placed inside the body (implanted) or outside the body. These electrodes send gentle pulses of electricity to strengthen the nerves or muscles that control the bladder. ? Women may use a plastic device, called a pessary, that fits into the vagina and supports the bladder. ? Medicines, such as: ? Antibiotics to treat bladder infection. ? Antispasmodics to stop the bladder from releasing urine at the wrong time. ? Tricyclic antidepressants to relax bladder muscles. ? Injections of botulinum toxin type A directly into the bladder tissue to relax bladder muscles. ? Surgery, such as: ? A device may be implanted to help manage the nerve signals that control urination. ? An electrode may be implanted to stimulate electrical signals in the bladder. ? A procedure may be done to change the shape of the bladder. This is done only in very severe cases. Follow these instructions at home: Eating and drinking ? Make diet or lifestyle changes recommended by your health care provider. These may include: ? Drinking fluids throughout the day and not only with meals. ? Cutting down on caffeine or alcohol. ? Eating a healthy and balanced diet to prevent constipation. This may include: ? Choosing foods that are high in fiber, such as beans, whole grains, and fresh fruits and vegetables. ? Limiting foods that are high in fat and processed sugars, such as fried and sweet foods. Lifestyle ? Lose weight if needed. ? Do not use any products that contain nicotine or tobacco. These include cigarettes, chewing tobacco, and vaping devices, such as e-cigarettes. If you need help quitting, ask your health care provider. General instructions ? Take [id number] and prescription medicines only as told by your health care provider. ? If you were prescribed an antibiotic medicine, take it as told by your health care provider. Do not stop taking the antibiotic even if you start to feel better. ? Use any implants or pessary as told by your health care provider. ? If needed, wear pads to absorb urine leakage. ? Keep a log to track how much and when you drink, and when you need to urinate. This will help your health care provider monitor yo (more content not included)... [facility] Urology Office/Clinic Noteon 07-08-2023 Urology Office/Clinic Note Chief Complaint 3 month follow up w/ PVR HPI Staff Hussain is a 83 y.o. male here for 3 month follow up w/ PVR. Previous Dx: asymptomatic microscopic hematuria, BPH w/ urinary obstruction, dysuria, gross hematuria, incomplete bladder emptying, nocturia, personal history of prostate cancer, post void dribbling, urge incontinence, weak urinary stream. PVR today 55ml. Dysuria: occasionally Incomplete bladder emptying: denies Hematuria: denies visible blood, occasionally sees pink in underwear Frequency: every 2 hours Urgency: yes Nocturia: 3x a night Stream: weak stream Leaking: sometimes Post void dripping: sometimes Wearing pads/ Depends: wears depends daily Urge incontinence: denies Stress incontinence: denies Incontinence without Sensory Awareness: denies Abdominal pain: denies Flank pain: denies Sexual complaints: _ History of Present Illness I have reviewed and verified the staff HPI to be accurate for this encounter. Review of Systems PHQ Score Initial Depression Screen Score: 0 SCORE Physical Exam Vitals & Measurements HR: 58(Peripheral) BP: 130/62 HT: 68 in HT: 173 cm WT: 102.5 kg WT: 225.5 lb BMI: 34.25 General: elderly adult male in no acute distress. Genitourinary: Flank Pain: none. Bladder: nonpalpable. Assessment/Plan 1. Nocturia (R35.1: Nocturia) Pt's most bothersome urinary complain is nocturia. Pt called in about 1 month ago w/ c/o nocturia 4-5x/night. Previously on oxybutynin, which cause constipation. Myrbetriq sent at time of prior OV, but was cost prohibitive. Pt started on solifenacin 5mg x 1 month. Pt tolerates this med w/o bothersome SEs. Having BMs daily. Nocturia down to 2-3x/night on medication. Discussed w/ pt keeping dose the same vs increasing dose. Pt elects to increase dose at this time. Call if experiencing bothersome sxs and will go back to previous dosage. -Start solifenacin 10mg QD, [facility] [place] [facility]. Ordered: solifenacin, 10 mg = 1 tab(s), Oral, Daily, X 90 day(s), # 90 tab(s), Refills(s) 3, Pharmacy: [facility] [id number], 173, cm, 07/08/23 14:00:00 EST, Height/Length Dosing, 102.5, kg, 07/08/23 14:00:00 EST, Weight Dosing 2. BPH with urinary obstruction (N40.1: Benign prostatic hyperplasia with lower urinary tract symptoms) IPSS 13, moderate sx of BPH. s/p c ysto 10/02/22 - unobstructed prostate Pt currently taking alfuzosin 10 mg QD Denies SEs, tolerating well. Continue current dose, call for refills. -f/u as scheduled 10/04/23 w/ PRW 3. 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 4. OAB (overactive bladder) (N32.81: Overactive bladder) Most bothersome at night, see #1 voiding q1-2 hrs during the day PVR 55cc today. Toelrated solifenacin 5 mg which improved sx. Pt would like to try increased dose. Increase to 10 mg QD Pt to call if experiencing bothersome SEs Incomplete bladder emptying (R33.9: Retention of urine, unspecified) Ordered: 25454 Measure Post Void residual urine and/or bladder capacity by US- non-imaging Urnls Dip Stick Auto w/o Microscopy POC 84591 Other obstructive and reflux uropathy (N13.8: Other obstructive and reflux uropathy) Follow-up No qualifying data available Patient Education Overactive Bladder, Adult Hematuria, Adult Problem List/Past Medical History Ongoing Anticoagulated Aspirin long-term use Asymptomatic microscopic hematuria BMI 33.0-33.9,adult BPH with urinary obstruction Diabetes Dysuria Gross hematuria Hypertension Incomplete bladder emptying Nocturia Personal history of prostate cancer Personal history of smoking Post-void dribbling Urge incontinence Weak urinary stream Historical No qualifying data Procedure/Surgical History Cystoscopy (10/02/2022), Cystoscopy (06/28/2020), Brachytherapy of prostate using fluoroscopic guidance (2002), Appendectomy, CABG - Coronary artery bypass graft, Cardiac catheterisation, left heart, History of hernia repair, Tonsillectomy. Medications acetaminophen-diphenhy dramine 1000 mg-50 mg/30 mL oral liquid, 30 mL, Oral, Once a day (at bedtime), PRN alfuzosin 10 mg ER Tab, 10 mg= 1 tab(s), Oral, Daily, 3 refills allopurinol 100 mg Tab aspirin 81 mg oral tablet, Oral, Daily carvedilol 3.125 mg Tab, Oral, BID Farxiga 10 mg oral tablet Fish Oil, Oral furosemide 20 mg Tab, Oral, Daily glimepiride 4 mg Tab, Oral, Daily simvastatin 10 mg Tab, Oral, Once a day (at bedtime) solifenacin 10 mg Tab, 10 mg= 1 tab(s), Oral, Daily, 3 refills Vitamin D, Oral, qWeek Allergies iodine (Rash) penicillin (Unknown) shellfish (Unknown risk of deliberate self harm) So (more content not included)... [facility] Comment on above: Result Comment: Elec tronically Signed By: JOSE De La Cruz APRN, [place] X\.balwinder\Date and Time Signed: 07/08/23 14:39 EST Ambulatory Visit Summaryon 1 Ambulatory Visit Summary HUSSAIN AUGUSTE :1940 Visit Date:04/01/2023 Ambulatory Visit Instructions Your Diagnosis Personal history of prostate cancer BPH with urinary obstruction Gross hematuria Other obstructive and reflux uropathy Tests Performed Urnls Dip Stick Auto w/o Microscopy POC 29500 Your Care Team Attending Physician - MELISA QUEVEDO, Jose Desai Primary Care Physician - BOYD QUEVEDO, JENA Bonilla Referring Physician - Jose MUHAMMAD MD This Is Your Medications List alfuzosin (alfuzosin 10 mg ER Tab) allopurinol (allopurinol 100 mg Tab) aspirin (aspirin 81 mg oral tablet) carvedilol (carvedilol 3.125 mg Tab) dapagliflozin (Farxiga 10 mg oral tablet) furosemide (furosemide 20 mg Tab) glimepiride (glimepiride 4 mg Tab) oxybutynin (oxybutynin 5 mg Tab) simvastatin (simvastatin 10 mg Tab) Procedures Performed Cystoscopy (10/02/2022), Cystoscopy (06/28/2020), Brachytherapy of prostate using fluoroscopic guidance (2002), Appendectomy, CABG - Coronary artery bypass graft, Cardiac catheterisation, left heart, History of hernia repair, Tonsillectomy. Discharge Vitals Heart Rate (Peripheral) 68 Respiratory Rate 16 Blood Pressure 132/68 Height 173 cm Height 68 in Weight 102.5 kg Weight 225.5 lb BMI 34.25 What to do next Scheduled Follow-Up Appointments Saturday 11:00 AM EDT With: Jose MUHAMMAD MD Where: [facility] Patient Educationon 04-01-20 Patient Education Urology Benign Prostatic Hyperplasia Benign prostatic hyperplasia (BPH) is an enlarged prostate gland that is caused by the normal aging process. The prostate may get bigger as a man gets older. The condition is not caused by cancer. The prostate is a walnut-sized gland that is involved in the production of semen. It is located in front of the rectum and below the bladder. The bladder stores urine. The urethra carries stored urine out of the body. An enlarged prostate can press on the urethra. This can make it harder to pass urine. The buildup of urine in the bladder can cause infection. Back pressure and infection may progress to bladder damage and kidney (renal) failure. What are the causes? This condition is part of the normal aging process. However, not all men develop problems from this condition. If the prostate enlarges away from the urethra, urine flow will not be blocked. If it enlarges toward the urethra and compresses it, there will be problems passing urine. What increases the risk? This condition is more likely to develop in men older than 50 years. What are the signs or symptoms? Symptoms of this condition include: ? Getting up often during the night to urinate. ? Needing to urinate frequently during the day. ? Difficulty starting urine flow. ? Decrease in size and strength of your urine stream. ? Leaking (dribbling) after urinating. ? Inability to pass urine. This needs immediate treatment. ? Inability to completely empty your bladder. ? Pain when you pass urine. This is more common if there is also an infection. ? Urinary tract infection (UTI). How is this diagnosed? This condition is diagnosed based on your medical history, a physical exam, and your symptoms. Tests will also be done, such as: ? A post-void bladder scan. This measures any amount of urine that may remain in your bladder after you finish urinating. ? A digital rectal exam. In a rectal exam, your health care provider checks your prostate by putting a lubricated, gloved finger into your rectum to feel the back of your prostate gland. This exam detects the size of your gland and any abnormal lumps or growths. ? An exam of your urine (urinalysis). ? A prostate specific antigen (PSA) screening. This is a blood test used to screen for prostate cancer. ? An ultrasound. This test uses sound waves to electronically produce a picture of your prostate gland. Your health care provider may refer you to a specialist in kidney and prostate diseases (urologist). How is this treated? Once symptoms begin, your health care provider will monitor your condition (active surveillance or watchful waiting). Treatment for this condition will depend on the severity of your condition. Treatment may include: ? Observation and yearly exams. This may be the only treatment needed if your condition and symptoms are mild. ? Medicines to relieve your symptoms, including: ? Medicines to shrink the prostate. ? Medicines to relax the muscle of the prostate. ? Surgery in severe cases. Surgery may include: ? Prostatectomy. In this procedure, the prostate tissue is removed completely through an open incision or with a laparoscope or robotics. ? Transurethral resection of the prostate (TURP). In this procedure, a tool is inserted through the opening at the tip of the penis (urethra). It is used to cut away tissue of the inner core of the prostate. The pieces are removed through the same opening of the penis. This removes the blockage. ? Transurethral incision (TUIP). In this procedure, small cuts are made in the prostate. This lessens the prostate's pressure on the urethra. ? Transurethral microwave thermotherapy (TUMT). This procedure uses microwaves to create heat. The heat destroys and removes a small amount of prostate tissue. ? Transurethral needle ablation (TUNA). This procedure uses radio frequencies to destroy and remove a small amount of prostate tissue. ? Interstitial laser coagulation (ILC). This procedure uses a laser to destroy and remove a small amount of prostate tissue. ? Transurethral electrovaporization (TUVP). This procedure uses electrodes to destroy and remove a small amount of prostate tissue. ? Prostatic urethral lift. This procedure inserts an implant to push the lobes of the prostate away from the urethra. Follow these instructions at home: ? Take [id number]-lpmpkmn and prescription medicines only as told by your health care provider. ? Monitor your symptoms for any changes. Contact your health care provider with any changes. ? Avoid drinking large amounts of liquid before going to bed or out in public. ? Avoid or reduce how much caffeine or alcohol you drink. ? Give yourself time when you urinate. ? Keep all follow-up visits. This is important. Contact a health care provider if: ? You have unexplained back pain. ? Your symptoms do not get better with treatment. ? You develop side effects from the medicine (more content not included)... Normal [facility] Urology Office/Clinic Noteon 04-01-2023 Urology Office/Clinic Note Chief Complaint S/P Cysto HPI Staff 6m S/P Cysto 10/02/22 DX: Personal Hx of Prostate Cancer, BPH & Gross Hematuria S/p Brachytherapy 2002 (last encounter states 2007, Verified in [employer] it was 2002) *Started on Oxybutynin 5mg qhs & Continues Alfuzosin 10mg ER qd. (no longer taking Oxybutynin) Last PSA 09/07/22- <0.1 Atypical Cytology & + FISH 09/07/22 [place] 09/13/22 Pt called our office 09/18/22 c/o increased nocturia frequency, urgency, burning and constipation. PT was advised to stop Oxybutynin therapy. +UACS 09/21/22 >100,000 cfu/ml Klebsiella pneumoniae *tx'd w/Levaquin therapy. Still getting up3-4x/night to void. Most bothersome symptom. Voiding q1-2hrs during the day. Admits to drinking a lot of water. Intermittent slow stream. Has been this way for years. Not too concerned. Denies visible blood since last encounter. History of Present Illness Tests reviewed: reviewed UA I have reviewed the previous health record information and history for this patient from . I have reviewed and verified the staff HPI to be accurate for this encounter. There have been no associated fever, chills, flank pain, or blood in the urine. Denies any urinary infections since last encounter. Review of Systems PHQ Score Initial Depression Screen Score: 0 ROS - Provider Constitutional: denies weight loss, denies hot flashes. Eyes: denies eye problems. Gastrointestinal: denies nausea, denies vomiting. Cardiovascular: denies chest pain or angina. Integumentary: no dryness Musculoskeletal: denies musculoskeletal symptoms. ENMT: denies otolaryngeal symptoms. Respiratory: no shortness of breath. Heme/Lymph: denies easy bleeding tendency, denies easy bruising tendency. Psychiatric: no confusion, no anxiety. Genitourinary: See HPI. Physical Exam Vitals & Measurements HR: 68(Peripheral) RR: 16 BP: 132/68 HT: 68 in HT: 173 cm WT: 102.5 kg WT: 225.5 lb BMI: 34.25 General Appearance: alert, no distress, well nourished, well developed male. Assessment/Plan 1. Personal history of prostate cancer (Z85.46: Personal history of malignant neoplasm of prostate) S/p Brachytherapy 2002 (last encounter states 2007, Verified in [employer] it was 2002). 2. BPH with urinary obstruction (N40.1: Benign prostatic hyperplasia with lower urinary tract symptoms) Continues Alfuzosin 10mg ER daily was started on Oxybutynin 5mg qhs, pt is no longer taking the Oxybutynin due to bothersome SE's. [place] 09/13/22 - simple Lt renal cysts Pt called our office 09/18/22 c/o increased nocturia frequency, urgency, burning and constipation. PT was advised to stop Oxybutynin therapy. +UACS 09/21/22 >100,000 cfu/ml Klebsiella pneumoniae *tx'd w/Levaquin therapy. Still getting up3-4x/night to void. Most bothersome symptom. Voiding q1-2hrs during the day. Admits to drinking a lot of water. Intermittent slow stream. Has been this way for years. Not too concerned. Advised pt that we could try to get the pt started on Myrbetriq if the pt's insurance covers it, or if the med is not too costly for the pt. Pt states that he would like to try this and will call our office if it is too costly. Follow up in 6 mos. All questions/concerns were discussed. Pt to call the office if he encounters any issues prior. Pt acknowledges understanding. -Will send Myrbetriq 50mg ER to [facility] in [place]. Discussed the medication side effects, and the patient will monitor closely for these, as well as for symptom improvement. If severe side effects occur, the medication should be stopped and the office notified. 3. Gross hematuria (R31.0: Gross hematuria) Atypical Cytology & + FISH 09/07/22 UA today shows trace-intact blood. Denies visible blood since last encounter. Follow-up With When Contact Information MELISA QUEVEDO, Jose Desai, YAZ In 6 months [facility] [address], [place] [address]- Additional Instructions: Patient Education Benign Prostatic Hyperplasia I, Anita Jones , personally scribed for Dr. Muhammad on 04/01/2023 14:33:54. . Documentation recorded by the Anita sanchez, accurately reflects the services(s) I performed and decisions made by me. Problem List/Past Medical History Ongoing Anticoagulated Aspirin long-term use Asymptomatic microscopic hematuria BMI 33.0-33.9,adult BPH with urinary obstruction Diabetes Dysuria Gross hematuria Hypertension Incomplete bladder emptying Nocturia Personal history of prostate cancer Personal history of smoking Post-void dribbling Urge incontinence Weak urinary stream Historical No qualifying data Procedure/Surgical History Cystoscopy (10/02/2022), Cystoscopy (06/28/2020), Brachytherapy of prostate using fluoroscopic guidance (2002), Appendectomy, CABG - Coronary artery bypass graft, Cardiac catheterisation, left heart, History of hernia repair, Tonsillectomy. M (more content not included)... Normal [facility] Comment on above: Result Comment: Elec tronically Signed By: MELISA QUEVEDO, Jose Desai\.br\Date and Time Signed: 04/01/23 14:50 EDT\.br\Electronically Co-Signed By: Anita Jones.br\Date and Time Co-Signed: 04/01/23 14:34 EDT CHEMISTRYOrdered By: SYSTEM SYSTEM on 09-07-2022 Prostate specific Ag [Mass/Vol] ng/mL Normal 0.1 - 3.5 ng/mL [facility] [place] US Renal/Bladderon US Renal/Bladder FINDINGS: Right Nvddlu55.2 x 6.0 x 4.3 cm Left Lmfvbw08.4 x 5.4 x 4.1cm Mild diffuse reduction in renal cortical volume, right greater than left. Borderline increase in echotexture constellation of which consistent with mild chronic medical renal disease. No renal mass. No significant echogenic stone formation or collecting system dilatation. Left renal peripelvic 1.0 x 1.3 cm simple cyst. No echogenic foci or suspicious mass lesions, or wall thickening is present within the bladder. Bilateral ureteral jets are identified. No significant post-void residual is present either. IMPRESSION: 1. Slight reduction in renal cortical volume, consistent with mild chronic medical renal disease. 2. No significant stone formation evidence of obstruction. Report reported and signed by Jerardo Lam on 10/09/2021 1228 Normal [facility] Comprehensive Metabolic Pane noel 09-27-2021 Albumin [Mass/Vol] 4.5 g/dL Normal 3.6-5.1 [facility] Comment on above: Performed By: #### C MP #### [facility] [address] [place], [place] [id number] Albumin/Globulin [Mass ratio] 2.5 {ratio} Normal 1.0-2.5 [facility] Comment on above: Performed By: #### C MP #### [facility] [address] [place], [place] [id number] ALP [Catalytic activity/Vol] 74 U/L Normal 40-129 [facility] Comment on above: Performed By: #### C MP #### [facility] [address] [place], [place] [id number] ALT [Catalytic activity/Vol] 12 U/L Normal 9-46 [facility] Comment on above: Result Comment: 05/24 Female reference range changed. Performed By: #### C MP #### [facility] [address] [place], [place] [id number] Anion gap [Moles/Vol] 18 mmol/L Normal 12-20 [facility] Comment on above: Result Comment: Effe ctive 06/29/2019 reference range changed. Performed By: #### C MP #### [facility] [address] [place], [place] [id number] AST [Catalytic activity/Vol] 18 U/L Normal 10-40 [facility] Comment on above: Performed By: #### C MP #### [facility] [address] [place], [place] [id number] Bilirubin [Mass/Vol] 0.44 mg/dL Normal 0.30-1.20 [facility] Comment on above: Performed By: #### C MP #### [facility] [address] [place], [place] [id number] BUN/CREA 21 Ratio Normal 6-22 [facility] Comment on above: Performed By: #### C MP #### [facility] [address] [place], [place] [id number] Calcium [Mass/Vol] 9.6 mg/dL Normal 8.6-10.2 [facility] Comment on above: Performed By: #### C MP #### [facility] [address] [place] [id number] Chloride [Moles/Vol] 105 mmol/L Normal 98-107 [facility] Comment on above: Performed By: #### C MP #### [facility] [address] [place] [id number] CO2 [Moles/Vol] 21 mmol/L Normal 20-31 [facility] Comment on above: Performed By: #### C MP #### [facility] [address] [facility] [place] [id number] Creatinine [Mass/Vol] 2.4 mg/dL High 0.7-1.4 [facility] Comment on above: Performed By: #### C MP #### [facility] [address] [facility] [place] [id number] eGFRAA 31 mL/min/1.73m2 Low >60 [facility] Special[facility] Comment on above: Performed By: #### C MP #### [facility] [address] [place] [id number] eGFRNAA 26 mL/min/1.73m2 Low >60 [facility] Comment on above: Performed By: #### C MP #### [facility] [address] [facility] [place] [id number] Globulin (S) [Mass/Vol] 1.8 g/dL Low 1.9-3.7 [facility] Comment on above: Performed By: #### C MP #### [facility] [address] [facility] [place] [id number] Glucose [Mass/Vol] 86 mg/dL Normal 65-99 [facility] Comment on above: Result Comment: For FASTING Glucose --- ADA reference ranges: Normal 65-99 mg/dl Prediabetes 100-125 Diabetes >/= 126 Performed By: #### C MP #### [facility] [address] [facility] [place] [id number] Potassium [Moles/Vol] 5.3 mmol/L Normal 3.5-5.5 [facility] Comment on above: Performed By: #### C MP #### [facility] [address] [place], [place] [id number] Protein [Mass/Vol] 6.3 g/dL Normal 6.1-8.1 [facility] Comment on above: Performed By: #### C MP #### [facility] [address] [place], [place] [id number] Sodium [Moles/Vol] 139 mmol/L Normal 135-146 [facility] Comment on above: Performed By: #### C MP #### [facility] [address] [place], [place] [id number] Urea nitrogen [Mass/Vol] 51 mg/dL High 7-25 [facility] Special[facility] Comment on above: Performed By: #### C MP #### [facility] [address] [place], [place] [id number] Complete Blood Count with Au to Diffon 09-20-2021 Basophils (Bld) [#/Vol] 0.05 10*3/uL Normal 0.00-0.20 [facility] Comment on above: Performed By: #### C BCAD, LIPD, CMP #### [facility] [address] [place], [place] [id number] Basophils/100 WBC (Bld) 0.6 % Normal [facility] Comment on above: Performed By: #### C BCAD, LIPD, CMP #### [facility] [address] [place], [place] [id number] Eosinophils (Bld) [#/Vol] 0.17 10*3/uL Normal 0.02-0.50 [facility] Special[facility] Comment on above: Performed By: #### C BCAD, LIPD, CMP #### [facility] [address] [place], [place] [id number] Eosinophils/100 WBC (Bld) 2.2 % Normal [facility] Special[facility] Comment on above: Performed By: #### C BCAD, LIPD, CMP #### [facility] [address] [place], [place] [id number] Erythrocyte distribution width (RBC) [Ratio] 15.3 % High 11.0-15.0 [employer] [place] [employer] Comment on above: Performed By: #### C BCAD, LIPD, CMP #### [facility] [address] [place], [place] [id number] Hematocrit (Bld) [Volume fraction] 34.5 % Low 38.5-50.0 [facility] Negot[facility] Comment on above: Performed By: #### C BCAD, LIPD, CMP #### [facility] [address] [place], [place] [id number] Hemoglobin (Bld) [Mass/Vol] 11.3 g/dL Low 13.0-17.1 [facility] Comment on above: Performed By: #### C BCAD, LIPD, CMP #### [facility] [address] [place], [place] [id number] Lymphocytes (Bld) [#/Vol] 1.5 10*3/uL Normal 0.9-3.9 [facility] Special[facility] Comment on above: Performed By: #### C BCAD, LIPD, CMP #### [facility] [address] [place], [place] [id number] Lymphocytes/100 WBC (Bld) 19.0 % Normal [facility] Specialist Comment on above: Performed By: #### C BCAD, LIPD, CMP #### [facility] [address] [place], [place] [id number] MCH (RBC) [Entitic mass] 30.6 pg Normal 27.0-33.0 [facility] Specialist Comment on above: Performed By: #### C BCAD, LIPD, CMP #### [facility] [address] [place], [place] [id number] MCHC (RBC) [Mass/Vol] 32.8 g/dL Normal 32.0-36.0 [facility] Comment on above: Performed By: #### C BCAD, LIPD, CMP #### [facility] [address] [place], [place] [id number] MCV (RBC) [Entitic vol] 94 fL Normal 80-100 [facility] Sales Negotiator Comment on above: Performed By: #### C BCAD, LIPD, CMP #### [facility] [address] [place], [place] [id number] Monocytes (Bld) [#/Vol] 0.6 10*3/uL Normal 0.2-0.9 [facility] Specialist Comment on above: Performed By: #### C MIRANDA, LIPD, CMP #### [facility] [address] [place], [place] [id number] Monocytes/100 WBC (Bld) 7.7 % Normal [facility] Specialist Comment on above: Performed By: #### C BCAIshmael, LIPD, CMP #### [facility] [address] [place], [place] [id number] Neutrophils (Bld) [#/Vol] 5.4 10*3/uL Normal 1.5-7.8 [facility] Specialist Comment on above: Performed By: #### C MIRANDA LIPD, CMP #### [facility] [address] [place], [place] [id number] Neutrophils/100 WBC (Bld) 70.0 % Normal [facility] Specialist Comment on above: Performed By: #### C BCAD, LIPD, CMP #### [facility] [address] [place], [place] [id number] Platelet mean volume (Bld) [Entitic vol] 10.50 fL Normal 7.50-12.50 [facility] Comment on above: Performed By: #### C MIRANDA, LIPD, CMP #### [facility] [address] [place], [place] [id number] Platelets (Bld) [#/Vol] 178 10*3/uL Normal 140-400 [facility] Specialist Comment on above: Performed By: #### C BCAD, LIPD, CMP #### [facility] [address] [place], [place] [id number] RBC (Bld) [#/Vol] 3.69 10*6/uL Low 4.20-5.80 [facility] Specialist Comment on above: Performed By: #### C BCAD, LIPD, CMP #### [facility] [address] [place], [place] [id number] RDW-SD 52.6 fL High 37.0-50.0 [facility] Specialist Comment on above: Performed By: #### C BCAD, LIPD, CMP #### [facility] [address] [place], [place] [id number] WBC (Bld) [#/Vol] 7.8 10*3/uL Normal 3.8-11.0 [facility] Comment on above: Performed By: #### C BCAD, LIPD, CMP #### [facility] [address] [place], [place] [id number] Comprehensive Metabolic Pane noel 09-20-2021 Albumin [Mass/Vol] 4.4 g/dL Normal 3.6-5.1 Dany guerra [place] Sales Negotiator Comment on above: Performed By: #### C BCAD, LIPD, CMP #### [facility] [address] [place], [place] [id number] Albumin/Globulin [Mass ratio] 2.3 {ratio} Normal 1.0-2.5 [facility] Specialist Comment on above: Performed By: #### C BCAD, LIPD, CMP #### [facility] [address] [place], [place] [id number] ALP [Catalytic activity/Vol] 76 U/L Normal 40-129 [facility] Specialist Comment on above: Performed By: #### C BCAD, LIPD, CMP #### [facility] [address] [place], [place] [id number] ALT [Catalytic activity/Vol] 12 U/L Normal 9-46 [facility] Specialist Comment on above: Result Comment: 05/24 Female reference range changed. Performed By: #### C BCAD, LIPD, CMP #### [facility] [address] [place], [place] [id number] Anion gap [Moles/Vol] 18 mmol/L Normal 12-20 [facility] Comment on above: Result Comment: Effe ctive 06/29/2019 reference range changed. Performed By: #### C BCAD, LIPD, CMP #### [facility] [address] [place], [place] [id number] AST [Catalytic activity/Vol] 18 U/L Normal 10-40 [facility] Specialist Comment on above: Performed By: #### C BCAD, LIPD, CMP #### [facility] [address] [place], [place] [id number] Bilirubin [Mass/Vol] 0.41 mg/dL Normal 0.30-1.20 [facility] Comment on above: Performed By: #### C BCAD, LIPD, CMP #### [facility] [address] [place], [place] [id number] BUN/CREA 19 Ratio Normal 6-22 [facility] Comment on above: Performed By: #### C BCAD, LIPD, CMP #### [facility] [address] [place], [place] [id number] Calcium [Mass/Vol] 9.6 mg/dL Normal 8.6-10.2 [facility] Comment on above: Performed By: #### C BCAD, LIPD, CMP #### [facility] [address] [place], [place] [id number] Chloride [Moles/Vol] 106 mmol/L Normal 98-107 [facility] Comment on above: Performed By: #### C BCAD, LIPD, CMP #### [facility] [address] [place], [place] [id number] CO2 [Moles/Vol] 20 mmol/L Normal 20-31 [facility] Comment on above: Performed By: #### C BCAD, LIPD, CMP #### [facility] [address] [place], [place] [id number] Creatinine [Mass/Vol] 2.7 mg/dL High 0.7-1.4 [facility] Comment on above: Performed By: #### C BCAD, LIPD, CMP #### [facility] [address] [place], [place] [id number] eGFRAA 28 mL/min/1.73m2 Low >60 [facility] Comment on above: Performed By: #### C BCAD, LIPD, CMP #### [facility] [address] [place], [place] [id number] eGFRNAA 23 mL/min/1.73m2 Low >60 [facility] Comment on above: Performed By: #### C BCAD, LIPD, CMP #### [facility] [address] [place], [place] [id number] Globulin (S) [Mass/Vol] 1.9 g/dL Normal 1.9-3.7 [facility] Sales Negotiator Comment on above: Performed By: #### C BCAD, LIPD, CMP #### [facility] [address] [place], [place] [id number] Glucose [Mass/Vol] 97 mg/dL Normal 65-99 [facility] Comment on above: Result Comment: For FASTING Glucose --- ADA reference ranges: Normal 65-99 mg/dl Prediabetes 100-125 Diabetes >/= 126 Performed By: #### C BCAD, LIPD, CMP #### [facility] [address] [place], [place] [id number] Potassium [Moles/Vol] 5.3 mmol/L Normal 3.5-5.5 [facility] Specialist Comment on above: Performed By: #### C BCAD, LIPD, CMP #### [facility] [address] [place], [place] [id number] Protein [Mass/Vol] 6.3 g/dL Normal 6.1-8.1 [facility] Sales Negotiator Comment on above: Performed By: #### C BCAD, LIPD, CMP #### [facility] [address] [place], [place] [id number] Sodium [Moles/Vol] 139 mmol/L Normal 135-146 [facility] Sales Negotiator Comment on above: Performed By: #### C BCAD, LIPD, CMP #### [facility] [address] [place], [place] [id number] Urea nitrogen [Mass/Vol] 49 mg/dL High 7-25 [facility] Sales Negotiator Comment on above: Performed By: #### C BCAD, LIPD, CMP #### [facility] [address] [place], [place] [id number] Lipid Panelon 09-20-2021 Cholesterol [Mass/Vol] 98 mg/dL Low 125-200 [facility] Sales Negotiator Comment on above: Result Comment: Low risk < 200mg/dL Borderline risk 201-239 mg/dl High risk > or equal to 240 Performed By: #### C BCAD, LIPD, CMP #### [facility] [address] [place], [place] [id number] Cholesterol in HDL [Mass/Vol] 30 mg/dL Low >40 [facility] Sales Negotiator Comment on above: Result Comment: High Cardiovascular Risk HDL <40 mg/dL Low Cardiovascular Risk HDL > or equal to 60 mg/dl Performed By: #### C MIRANDA, LIPD, CMP #### [facility] [address] [place], [place] [id number] Cholesterol in LDL [Mass/Vol] 31 mg/dL Normal [facility] Sales Negotiator Comment on above: Result Comment: LDL ATP III CLASSIFICATION LDL less than 100 mg/dl Optimal LDL 100-129 mg/dl Near or above optimal LDL 130-159 Borderline high LDL 160-189 High LDL greater than 189 mg/dl Very High Performed By: #### C BCAD, LIPD, CMP #### [facility] [address] [place], [place] [id number] Cholesterol in VLDL [Mass/Vol] 37 mg/dL Normal [facility] Sales Negotiator Comment on above: Performed By: #### C BCAD, LIPD, CMP #### [facility] [address] [place], [place] [id number] Cholesterol.total/Cho lesterol in HDL [Mass ratio] 3 {ratio} Normal [facility] Sales Negotiator Comment on above: Performed By: #### C BCAD, LIPD, CMP #### [facility] [address] [place], [place] [id number] Triglyceride [Mass/Vol] 185 mg/dL High 30-150 [facility] Sales Negotiator Comment on above: Result Comment: TRIG ATPIII CLASSIFICATIONS TRIG less than 150 mg/dl Normal TRIG 150-199 mg/dl Borderline High TRIG 200-500 mg/dl High TRIG greather than 500 mg/dl Very High Performed By: #### C BCAD, LIPD, CMP #### [facility] [address] [place], [place] [id number] PSA SCREEN (MEDICARE)on 08-24 TPSA 0.023 ng/mL Normal <4.000 [facility] Sales Negotiator Comment on above: Result Comment: PSA Test Method: ECLIA/Flavia e 601 Performed By: #### P SA FRAZIER #### [facility] [address] [place], [place] [id number] Vital Signs Date Time Vital Sign Value Performing Clinician Facility 11-19-2023 11:21-0400 Body height 175.26 cm [facility] 11-19-2023 11:21-0400 Body mass index (BMI) [Ratio] 31.3 kg/m2 [facility] 11-19-2023 11:21-0400 Body temperature 96.7 [degF] [facility] 11-19-2023 11:21-0400 Body weight 96.16 kg [facility] 11-19-2023 11:21-0400 Diastolic blood pressure 62 mm[Hg] [facility] 11-19-2023 11:21-0400 Heart rate 67 /min [facility] 11-19-2023 11:21-0400 Respiratory rate 18 /min [facility] 11-19-2023 11:21-0400 SaO2% (BldA) [Mass fraction] 95 % [facility] 11-19-2023 11:21-0400 Systolic blood pressure 100 mm[Hg] [facility] 11-01-2023 10:55-0400 Blood Pressure Location Jose MUHAMMAD [facility] 11-01-2023 10:55-0400 Diastolic blood pressure 47 mm[Hg] Jose MUHAMMAD [facility] 11-01-2023 10:55-0400 Heart rate 67 /min Jose MUHAMMAD [facility] 11-01-2023 10:55-0400 Systolic blood pressure 137 mm[Hg] Jose MUHAMMAD [facility] 10-21-2023 11:12-0400 Body height 175.26 cm Kassy Grey CNP Work Phone: [facility] Work Phone: 10-21-2023 11:12-0400 Body mass index (BMI) [Ratio] 31.1 kg/m2 Kassy Grey CNP Work Phone: [facility] Work Phone: 10-21-2023 11:12-0400 Body surface area Derived from formula 2.1 m2 Kassy Grey CNP Work Phone: [facility] Work Phone: 10-21-2023 11:12-0400 Body weight 95.62 kg Kassy Grey CNP Work Phone: [facility] Work Phone: 10-21-2023 11:12-0400 Diastolic blood pressure 72 mm[Hg] Kassy Grey CNP Work Phone: [facility] Work Phone: 10-21-2023 11:12-0400 Heart rate 67 /min Kassy Grey CNP Work Phone: [facility] Work Phone: 10-21-2023 11:12-0400 SaO2% (BldA) [Mass fraction] 93 % Kassy Grey CNP Work Phone: [facility] Work Phone: 10-21-2023 11:12-0400 Systolic blood pressure 124 mm[Hg] Kassy Grey WATER RECLAMATION SYSTEMS OPERATOR Work Phone: [facility] Work Phone: 09-24-2023 14:36-0400 Blood Pressure Location Lanny Orzech [facility] 09-24-2023 14:36-0400 Diastolic blood pressure 61 mm[Hg] Lanny Orzech [facility] 09-24-2023 14:36-0400 Heart rate 63 /min Lanny Orzech [facility] 09-24-2023 14:36-0400 Respiratory rate 17 /min Lanny Orzech [facility] 09-24-2023 14:36-0400 Systolic blood pressure 117 mm[Hg] Lanny De La Cruz [facility] 07-19-2023 11:41-0500 Body height 175.26 cm Kassy Grey CNP Work Phone: [facility] Work Phone: 07-19-2023 11:41-0500 Body mass index (BMI) [Ratio] 31.5 kg/m2 Kassy Grey CNP Work Phone: [facility] Work Phone: 07-19-2023 11:41-0500 Body surface area Derived from formula 2.1 m2 Kassy Grey CNP Work Phone: [facility] Work Phone: 07-19-2023 11:41-0500 Body weight 96.62 kg Kassy Grey CNP Work Phone: [facility] Work Phone: 07-19-2023 11:41-0500 Diastolic blood pressure 70 mm[Hg] Kassy Grey WATER RECLAMATION SYSTEMS OPERATOR Work Phone: [facility] Work Phone: 07-19-2023 11:41-0500 Heart rate 64 /min Kassy Grey CNP Work Phone: [facility] Work Phone: 07-19-2023 11:41-0500 SaO2% (BldA) [Mass fraction] 96 % Kassy Grey WATER RECLAMATION SYSTEMS OPERATOR Work Phone: [facility] Work Phone: 07-19-2023 11:41-0500 Systolic blood pressure 109 mm[Hg] Kassy Grey WATER RECLAMATION SYSTEMS OPERATOR Work Phone: [facility] Work Phone: 07-16-2023 11:00-0500 Body height 175.26 cm Braulio Linares Other [employer] Other 07-16-2023 11:00-0500 Body mass index (BMI) [Ratio] 31.33 kg/m2 Braulio Oseis Other [employer] Other 07-16-2023 11:00-0500 Body temperature 96.9 [degF] Braulio Linares Other [employer] Other 07-16-2023 11:00-0500 Body weight 96.25 kg Braulio Oseis Other [employer] Other 07-16-2023 11:00-0500 Diastolic blood pressure 70 mm[Hg] Braulio Oseis Other [employer] Other 07-16-2023 11:00-0500 Respiratory rate 18 /min Braulio Linares Other [employer] Other 07-16-2023 11:00-0500 SaO2% (BldA) [Mass fraction] 95 % Braulio Linares Other [employer] Other 07-16-2023 11:00-0500 Systolic blood pressure 110 mm[Hg] Braulio Oseis Other [employer] Other 07-08-2023 13:48-0500 Blood Pressure Location Lanny Orzech [facility] 07-08-2023 13:48-0500 Diastolic blood pressure 62 mm[Hg] Lanny Orzech [facility] 07-08-2023 13:48-0500 Heart rate 58 /min Lanny De La Cruz [facility] 07-08-2023 13:48-0500 Systolic blood pressure 130 mm[Hg] Lanny De La Cruz [facility] 04-19-2023 11:38-0400 Body height 175.26 cm Kassy Grey CNP Work Phone: [facility] Work Phone: 04-19-2023 11:38-0400 Body mass index (BMI) [Ratio] 31.2 kg/m2 Kassy Grey CNP Work Phone: [facility] Work Phone: 04-19-2023 11:38-0400 Body surface area Derived from formula 2.1 m2 Kassy Grey CNP Work Phone: [facility] Work Phone: 04-19-2023 11:38-0400 Body weight 95.71 kg Kassy Grey CNP Work Phone: [facility] Work Phone: 04-19-2023 11:38-0400 Diastolic blood pressure 69 mm[Hg] Kassy Grey CNP Work Phone: [facility] Work Phone: 04-19-2023 11:38-0400 Heart rate 60 /min Kassy Grey CNP Work Phone: [facility] Work Phone: 04-19-2023 11:38-0400 SaO2% (BldA) [Mass fraction] 95 % Kassy Grey CNP Work Phone: [facility] Work Phone: 04-19-2023 11:38-0400 Systolic blood pressure 116 mm[Hg] Kassy Grey CNP Work Phone: [facility] Work Phone: 03-12-2023 11:20-0400 Body height 175.26 cm Braulio Linares Other [employer] Other 03-12-2023 11:20-0400 Body mass index (BMI) [Ratio] 32.1 kg/m2 Braulio Oseis Other [employer] Other 03-12-2023 11:20-0400 Body temperature 96.3 [degF] Braulio Oseis Other [employer] Other 03-12-2023 11:20-0400 Body weight 98.61 kg Braulio Oseis Other [employer] Other 03-12-2023 11:20-0400 Diastolic blood pressure 59 mm[Hg] Azbarbara Oseis Other [employer] Other 03-12-2023 11:20-0400 Respiratory rate 18 /min Braulio Oseis Other [employer] Other 03-12-2023 11:20-0400 SaO2% (BldA) [Mass fraction] 96 % Braulio Oseis Other [employer] Other 03-12-2023 11:20-0400 Systolic blood pressure 125 mm[Hg] Aziz Bakhous Other [employer] Other 01-16-2023 13:17-0400 Body height 175.26 cm Kassy Grey ORQUIDEA Work Phone: [facility] Work Phone: 01-16-2023 13:17-0400 Body mass index (BMI) [Ratio] 31.7 kg/m2 Kassy Grey CNP Work Phone: [facility] Work Phone: 01-16-2023 13:17-0400 Body surface area Derived from formula 2.1 m2 Kassy Grey CNP Work Phone: [facility] Work Phone: 01-16-2023 13:17-0400 Body temperature 97.8 [degF] Kassy Grey WATER RECLAMATION SYSTEMS OPERATOR Work Phone: [facility] Work Phone: 01-16-2023 13:17-0400 Body weight 97.52 kg Kassy Grey CNP Work Phone: [facility] Work Phone: 01-16-2023 13:17-0400 Diastolic blood pressure 72 mm[Hg] Kassy Grey WATER RECLAMATION SYSTEMS OPERATOR Work Phone: [facility] Work Phone: 01-16-2023 13:17-0400 Heart rate 66 /min Kassy Grey CNP Work Phone: [facility] Work Phone: 01-16-2023 13:17-0400 Respiratory rate 16 /min Kassy Grey WATER RECLAMATION SYSTEMS OPERATOR Work Phone: [facility] Work Phone: 01-16-2023 13:17-0400 SaO2% (BldA) [Mass fraction] 92 % Kassy Grey WATER RECLAMATION SYSTEMS OPERATOR Work Phone: [facility] Work Phone: 01-16-2023 13:17-0400 Systolic blood pressure 118 mm[Hg] Kassy Grey WATER RECLAMATION SYSTEMS OPERATOR Work Phone: [facility] Work Phone: 09-07-2022 11:44-0400 Blood Pressure Location Jose MUHAMMAD [facility] 09-07-2022 11:44-0400 Diastolic blood pressure 74 mm[Hg] Jose MUHAMMAD [facility] 09-07-2022 11:44-0400 Heart rate 68 /min Jose MUHAMMAD [facility] 09-07-2022 11:44-0400 Respiratory rate 16 /min Jose MUHAMMAD [facility] 09-07-2022 11:44-0400 Systolic blood pressure 128 mm[Hg] Jose MUHAMMAD [facility] 07-03-2022 14:40-0500 Body height 175.26 cm Braulio [employer] Other [employer] [facility] [employer] Other 07-03-2022 14:40-0500 Body mass index (BMI) [Ratio] 32.4 kg/m2 [employer] Other [employer] Other 07-03-2022 14:40-0500 Body temperature 96.5 [degF] Braulio [employer] Other [employer] Other 07-03-2022 14:40-0500 Body weight 99.52 kg [employer] Other [employer] Other 07-03-2022 14:40-0500 Diastolic blood pressure 70 mm[Hg] Aziz [employer] Other [employer] Other 07-03-2022 14:40-0500 Respiratory rate 18 /min [employer] Other [employer] Other 07-03-2022 14:40-0500 SaO2% (BldA) [Mass fraction] 97 % Braulio Linares Other [employer] Other 07-03-2022 14:40-0500 Systolic blood pressure 120 mm[Hg] Braulio Linares Other [employer] Other Encounters Encounter Date Encounter Type Care Provider Facility Start: 12-12-2023 ambulatory Jose MUHAMMAD Facili ty:[id number] Start: 12-10-2023 End: 12-10-2023 ambulatory KARLAEMA HAYNES Not Available Start: 11-22-2023 End: 11-22-2023 Lab Drop off Jose MUHAMMAD [facility] Start: 11-22-2023 End: 11-22-2023 ambulatory Jose MUHAMMAD Facility[facility] Start: 11-22-2023 End: 11-22-2023 Patient encounter procedure Jose MUHAMMAD [facility] Start: 11-19-2023 End: 11-19-2023 ambulatory [facility] Work Phone: Start: 11-19-2023 End: 11-19-2023 Patient encounter procedure [facility] Work Phone: Start: 11-01-2023 End: 11-01-2023 ambulatory Jose MUHAMMAD Facility: [facility] Start: 11-01-2023 End: 11-01-2023 Patient encounter procedure Jose MUHAMMAD [facility] Start: 10-29-2023 End: 10-29-2023 ambulatory [facility] Start: 10-24-2023 End: 10-24-2023 ambulatory JENA Bonilla BOYD Not Available Start: 10-22-2023 End: 10-22-2023 ambulatory KAT UNDERWOOD Not Available Start: 10-21-2023 End: 10-21-2023 Encounter for preprocedural laboratory examination Kassy Grey WATER RECLAMATION SYSTEMS OPERATOR Work Phone: [facility] Work Phone: Start: 10-21-2023 End: 10-21-2023 FQHC visit, estab pt Kassy Grey WATER RECLAMATION SYSTEMS OPERATOR Work Phone: [facility] Work Phone: Start: 10-02-2023 End: 11-06-2023 Pre-admission assessment Jose MUHAMMAD [facility] Start: 09-24-2023 End: 09-24-2023 ambulatory Lanny X Orzech Facility:[facility] Start: 09-24-2023 End: 09-24-2023 Lab Drop off Lanny X Orzech [facility] Start: 09-24-2023 End: 09-24-2023 ambulatory Lanny X Orzech Facility:[facility] Start: 09-24-2023 End: 09-24-2023 Patient encounter procedure Lanny X Orzech [facility] Start: 09-02-2023 End: 09-02-2023 ambulatory MANUELSTEPHEN GRACE Not Available Start: 08-20-2023 End: 08-20-2023 ambulatory RUGEN M BOYD Not Available Start: 08-09-2023 End: 08-09-2023 ambulatory KARLA HAYNES Not Available Start: 07-23-2023 End: 07-23-2023 ambulatory Jose MUHAMMAD Facility:[facility] Start: 07-23-2023 End: 07-23-2023 Patient encounter procedure Jose MUHAMMAD [facility] Start: 07-22-2023 End: 07-22-2023 ambulatory JENA NIX Not Available Start: 07-19-2023 End: 07-19-2023 FQHC visit, estab pt Kassy Que HEARD Work Phone: [facility] Work Phone: Start: 07-16-2023 End: 07-16-2023 ambulatory Braulio Linares Other [employer] Other Start: 07-16-2023 Office outpatient vi sit 25 minutes Braulio Linares [facility] Start: 07-15-2023 End: 07-15-2023 ambulatory Jose MUHAMMAD Facility:[facility] [place] Start: 07-15-2023 End: 07-15-2023 Patient encounter procedure Jose MUHAMMAD [facility] Start: 07-11-2023 End: 07-11-2023 Emergency department patient visit JENA NIX [facility] Start: 07-10-2023 End: 07-11-2023 Emergency department patient visit [facility] Start: 07-10-2023 End: 07-11-2023 Emergency department patient visit [facility] Start: 07-08-2023 End: 07-08-2023 ambulatory Lanny X Orzech Facility:[facility] [place] Start: 07-08-2023 End: 07-08-2023 Patient encounter procedure Lanny X Orzech [facility] Start: 04-01-2023 End: 04-01-2023 ambulatory Jose MUHAMMAD Facility:[facility] Start: 03-12-2023 End: 03-12-2023 ambulatory Brauloi Linares Other [employer] Other Start: 03-12-2023 Office outpatient vi sit 25 minutes Braulio Linares [facility] Start: 01-16-2023 End: 01-16-2023 [facility] visit new patient Kassy Grey CNP Work Phone: [facility] Work Phone: Start: 01-16-2023 End: 04-19-2023 FQHC visit, estab pt Kassy Grey WATER RECLAMATION SYSTEMS OPERATOR Work Phone: [facility] Work Phone: Start: 01-11-2023 ambulatory Kassy Grey WATER RECLAMATION SYSTEMS OPERATOR [employer] [facility] Start: 10-02-2022 End: 10-02-2022 Patient encounter procedure Jose MUHAMMAD [facility] Start: 09-21-2022 End: 09-21-2022 Lab Drop off Jose MUHAMMAD [facility] Start: 09-21-2022 End: 09-21-2022 Patient encounter procedure JENA NIX [facility] Start: 09-20-2022 End: 09-20-2022 ambulatory Braulio Linares Other [employer] Other Start: 09-20-2022 Telephone encounter Brualio Linares [facility] Start: 09-07-2022 End: 09-07-2022 Lab Drop off Jose MUHAMMAD [facility] Start: 09-07-2022 End: 09-07-2022 Patient encounter procedure Jose MUHAMMAD [facility] Start: 07-03-2022 End: 07-03-2022 ambulatory Aziz Bakhous Other [employer] Other Start: 07-03-2022 Office outpatient vi sit 25 minutes Aziz Bakhous [facility] Start: 04-13-2022 End: 04-13-2022 ambulatory Aziz Bakhous Other [employer] Other Start: 04-13-2022 Telephone encounter Aziz Bakhous [facility] Procedures Date Procedure Procedure Detail Performing Clinician Start: 10-29-2023 Follow-up visit Follow-up AGAPITO KIM Start: 10-21-2023 Behav assmt w/score & docd/stand instrument Kassy Grey CNP Work Phone: Start: 10-21-2023 Collection venous blood venipuncture Kassy Grey CNP Work Phone: Start: 10-21-2023 Current tobacco non-user cad cap copd pv dm Kassy Grey WATER RECLAMATION SYSTEMS OPERATOR Work Phone: Start: 10-21-2023 Depression screening Visit For: Screening Exam Depression Kassy Grey WATER RECLAMATION SYSTEMS OPERATOR Work Phone: Start: 10-21-2023 FQHC visit, estab pt Kassy Grey WATER RECLAMATION SYSTEMS OPERATOR Work Phone: Start: 10-21-2023 Hemoglobin glycosylated a1c Kassy alvares WATER RECLAMATION SYSTEMS OPERATOR Work Phone: Start: 10-21-2023 Hyperlipidemia screening Visit For: Screening Exam Lipoid Disorders Kassy Grey WATER RECLAMATION SYSTEMS OPERATOR Work Phone: Start: 10-21-2023 Most recent diastolic blood pressure < 80 mm hg Kassy Grey WATER RECLAMATION SYSTEMS OPERATOR Work Phone: Start: 10-21-2023 Most recent hemoglobin a1c level < 7.0% Kassy Grey WATER RECLAMATION SYSTEMS OPERATOR Work Phone: Start: 10-21-2023 Most recent systolic blood pressure <130 mm hg Kassy Grey WATER RECLAMATION SYSTEMS OPERATOR Work Phone: Start: 07-19-2023 Current tobacco non-user cad cap copd pv dm Kassy Grey WATER RECLAMATION SYSTEMS OPERATOR Work Phone: Start: 07-19-2023 Gluc bld gluc mntr dev cleared fda spec home use Kassy Grey WATER RECLAMATION SYSTEMS OPERATOR Work Phone: Start: 07-19-2023 Most recent diastolic blood pressure < 80 mm hg Kassy rGey WATER RECLAMATION SYSTEMS OPERATOR Work Phone: Start: 07-19-2023 Most recent hemoglobin a1c level < 7.0% Kassy Grey WATER RECLAMATION SYSTEMS OPERATOR Work Phone: Start: 07-19-2023 Most recent systolic blood pressure <130 mm hg Kassy Grey WATER RECLAMATION SYSTEMS OPERATOR Work Phone: Start: 04-19-2023 Gluc bld gluc mntr dev cleared fda spec home use Kassy Grey WATER RECLAMATION SYSTEMS OPERATOR Work Phone: Start: 04-19-2023 Most recent diastolic blood pressure < 80 mm hg Kassy Grey WATER RECLAMATION SYSTEMS OPERATOR Work Phone: Start: 04-19-2023 Most recent hemoglobin a1c level < 7.0% Kassy Grey WATER RECLAMATION SYSTEMS OPERATOR Work Phone: Start: 04-19-2023 Most recent systolic blood pressure <130 mm hg Kassy Grey WATER RECLAMATION SYSTEMS OPERATOR Work Phone: Start: 01-16-2023 Coronary artery bypass graft Kassy Grey WATER RECLAMATION SYSTEMS OPERATOR Work Phone: Start: 01-16-2023 Hemoglobin glycosylated a1c Kassy alvares WATER RECLAMATION SYSTEMS OPERATOR Work Phone: Start: 01-16-2023 Hepatitis c antibody Kassy Grey WATER RECLAMATION SYSTEMS OPERATOR Work Phone: Start: 01-16-2023 Most recent diastolic blood pressure < 80 mm hg Kassy Grey WATER RECLAMATION SYSTEMS OPERATOR Work Phone: Start: 01-16-2023 Most recent hemoglobin a1c level < 7.0% Kassy Grey WATER RECLAMATION SYSTEMS OPERATOR Work Phone: Start: 01-16-2023 Most recent systolic blood pressure <130 mm hg Kassy Grey WATER RECLAMATION SYSTEMS OPERATOR Work Phone: Start: 01-16-2023 Pt-focused hlth risk assmt score doc stnd instrm Kassy Grey W[employer] RE[employer]AMATION SYSTEMS OPERATOR Work Phone: Start: 01-16-2023 Surgical procedure Kassy Grey W[employer] RE[employer]AMATION SYSTEMS OPERATOR Work Phone: Start: 01-16-2023 Urine albumin quantitative Kassy Rangel larry W[employer] RE[employer]ATION SYSTEMS OPERATOR Work Phone: Start: 10-02-2022 Transurethral cystoscopy Lanny De La Cruz Start: 06-28-2020 Cystoscopy Jose MUHAMMAD Start: 06-24-2002 Brachytherapy of prostate using fluoroscopic guidance Jose MUHAMMAD Appendectomy Jose MUHAMMAD Catheterization of l eft heart Jose MUHAMMAD Coronary artery bypa ss graft Jose MUHAMMAD History of hernia repair Yumiko MUHAMMAD Tonsillectomy Jose MUHAMMAD Plan of Treatment Date Care Activity Detail Author Start: 03-30-2024 ambulatory Ambulatory Facility:[facility] Start: 01-20-2024 FQHC visit, estab pt Medical E stablished Patient [facility] Work Phone: Start: 12-20-2023 ambulatory Ambulatory Facility:[facility] Start: 10-21-2023 FQHC visit, estab pt Medical E stablished Patient [facility] Work Phone: Start: 10-21-2023 End: 10-21-2023 Patient education based on identified need Health [facility] Start: 07-19-2023 FQHC visit, estab pt Medical E stablished Patient Health [facility] Work Phone: Start: 07-19-2023 End: 07-19-2023 Patient education based on identified need [facility] Start: 04-19-2023 End: 04-19-2023 Patient education based on identified need Health [facility] Start: 04-18-2023 FQHC visit, estab pt Medical E stablished Patient Health [facility] Work Phone: Start: 01-16-2023 End: 01-16-2023 Patient education based on identified need [facility] Renal function 2000 panel - Serum or Plasma [facility] Immunizations Immunization Date Immunization Notes Care Provider Maeve [email or web address] 04-24-2023 influenza virus vaccine, unspecified formulation Lanny De La Cruz [facility] 04-03-2022 High Dose Fluzone- 6 5 yrs and Older Kassy Grey W[employer] RE[employer]S OPERATOR Work Phone: [facility] 04-03-2022 influenza virus vaccine, unspecified formulation Jose MUHAMMAD [facility] 05-08-2021 SARS-CoV-2 (COVID-19 ) mRNA BNT-162b2 vax Jose MUHAMMAD [facility] Comment on above: Result Comment: 2022: [id number] 05-04-2021 influenza virus vaccine, unspecified formulation Jose MUHAMMAD [facility] 05-04-2021 influenza, high dose seasonal, preservative-free Kassy Grey [employer]S OPERATOR Work Phone: [facility] 05-03-2021 influenza virus vaccine, unspecified formulation Jose MUHAMMAD [facility] 08-11-2020 SARS-CoV-2 (COVID-19 ) mRNA-1273 vaccine Jose MUHAMMAD [facility] Comment on above: Result Comment: 2022: [id number] 08-03-2020 SARS-CoV-2 (COVID-19 ) Ad26 vaccine, recombinant Jose MUHAMMAD [facility] 07-15-2020 SARS-CoV-2 (COVID-19 ) mRNA-1273 vaccine Jose MUHAMMAD [facility] Comment on above: Result Comment: 2022: [id number] 06-30-2020 SARS-CoV-2 (COVID-19 ) Ad26 vaccine, recombinant Jose MUHAMMAD [facility] 05-02-2020 influenza virus vaccine, unspecified formulation Jose MUHAMMAD [facility] 04-13-2020 High Dose Fluzone- 6 5 yrs and Older Kassy Grey W[employer] RE[employer]ATION [employer]S OPERATOR Work Phone: Health [facility] 04-13-2020 influenza virus vaccine, unspecified formulation Jose MUHAMMAD [facility] 04-04-2020 influenza virus vaccine, unspecified formulation Jose MUHAMMAD [facility] 04-01-2019 influenza virus vaccine, unspecified formulation Jose MUHAMMAD [facility] 04-01-2019 influenza, high dose seasonal, preservative-free Kassy Grey W[employer]S OPERATOR Work Phone: Health [facility] 04-01-2018 influenza virus vaccine, unspecified formulation Jose MUHAMMAD [facility] 04-01-2018 influenza, high dose seasonal, preservative-free Kassy Grey W[employer]S OPERATOR Work Phone: Health [facility] 04-01-2017 influenza virus vaccine, unspecified formulation Jose MUHAMMAD [facility] 04-01-2017 influenza, high dose seasonal, preservative-free Kassy Grey W[employer]S OPERATOR Work Phone: Health [facility] 04-25-2016 influenza virus vaccine, unspecified formulation Jose MUHAMMAD [facility] 04-25-2016 influenza, injectabl e, quadrivalent, preservative free Kassy Grey CNP Work Phone: [facility] 10-04-2015 pneumococcal conjuga te vaccine, 13 valent Jose MUHAMMAD [facility] 09-08-2015 tetanus toxoid, redu carmen diphtheria toxoid, and acellular pertussis vaccine, adsorbed Jose MUHAMMAD [facility] 07-13-2010 tetanus and diphther ia toxoids, adsorbed, preservative free, for adult use (2 Lf of tetanus toxoid and 2 Lf of diphtheria toxoid) Jose MUHAMMAD [facility] 07-13-2010 tetanus and diphther ia toxoids, adsorbed, preservative free, for adult use (5 Lf of tetanus toxoid and 2 Lf of diphtheria toxoid) Kassy Grey CNP Work Phone: [facility] Payers Date Payer Category Payer Medicare [id number] 2. [id number] 1940 Unknown [id number] 2.16.8 [id number] 1940 Unknown [id number] 2.16.84 0.1.799352.3.579.2.128 1940 Unknown [id number] 2.16.84 0.1.671475.3.579.2.128 1939 Unknown [id number] 2.16.84 0.1.342380.3.579.2.1286 1939 Unknown [id number] 2.16.84 0.1.436547.3.579.2.128 1939 Unknown [id number] 2.16.84 0.1.239396.3.579.2.1259 1939 Unknown [id number] 2.16.84 0.1.824912.3.579.2.1259 1939 Unknown [id number] 2.16.84 0.1.267719.3.579.2.1259 1939 Unknown [id number] 2.16.84 0.1.089938.3.579.2.1259 1939 Unknown [id number] 2.16.84 0.1.051101.3.579.2.1259 1939 Unknown [id number] 2.16.84 0.1.868388.3.579.2.1259 1939 Unknown [id number] 2.16.84 0.1.231232.3.579.2.1259 1939 Unknown [id number] 2.16.8 40.1.254578.3.579.2.72 1939 Unknown [id number] 2.16.8 40.1.217198.3.579.2.727 1939 Unknown [id number] 2.16.8 40.1.159369.3.579.2.727 1939 Unknown [id number] 2.16.8 40.1.998797.3.579.2.727 1939 Unknown [id number] 2.16.8 40.1.279199.3.579.2.72 1939 Unknown [id number] 2.16.8 40.1.046016.3.579.2.727 1939 Unknown [id number] 2.16.8 40.1.749996.3.579.2.727 1939 Unknown [id number] 2.16.8 40.1.068597.3.579.2.727 1939 Unknown [id number] 2.16.8 40.1.835317.3.579.2.72 1939 Unknown [id number] 2.16.8 40.1.838386.3.579.2.727 1939 Unknown [id number] 2.16.8 40.1.375898.3.579.2.727 Social History Date Type Detail Facility Unknown if ever smoked [employer] Other Sex Assigned At [facility] Start: 09-07-2022 End: 09-24-2023 Tobacco smoking status Ex-smoker (finding) [facility] Tobacco smoking status Never [facility] Assertion Currently not sexually active (finding) [facility] Assertion Gender identity finding (finding) [facility] Assertion Finding of sexua l orientation (finding) [facility] Tobacco smoking status Unknown if ever smoked [facility] Work Phone: Assertion Sexually active (finding) [facility] Start: 1940 Sex Assigned At Male [facility] NEGATED: Highlighted row Assertion Finding relating to drug misuse behavior (finding) [facility] NEGATED: Highlighted row Assertion Exposure to pollution (event) [facility] NEGATED: Highlighted row Assertion [facility] NEGATED: Highlighted row Assertion Current drinker of alcohol (finding) [facility] NEGATED: Highlighted row Assertion Sexually active (finding) [facility] Functional Status Date Assessment Result Facility 11-01-2023 Functional Status N/A [facility] 09-24-2023 Functional Status N/A [facility] 07-08-2023 Functional Status N/A [facility] 09-07-2022 Functional Status N/A [facility] Mental Status Date Assessment Result Facility Cognitive function Oriented to t reny, place, and person Oriented to person, time and place (finding) [facility] Work Phone: Clinical Notes 04-13-2022 to 11-01-2023 Note Date & Type Note Facility 11-01-2023 Hospital Discharg e instructions Patient Education 11/01/2023 11:59:40 Transurethral Resection of Bladder Tumor Transurethral Resection of Bladder Tumor Transurethral resection of a bladder tumor is the removal (resection) of cancerous tissue (tumor) from the inside wall of the bladder. The bladder is the organ that holds urine. The tumor is removed through the tube that carries urine out of the body (urethra). In a transurethral resection, a thin telescope with a light, a tiny camera, and an electric cutting edge (resectoscope) is passed through the urethra. In men, the opening of the urethra is at the end of the penis. In women, it is just above the opening of the vagina. Tell a health care provider about: Any allergies you have. All medicines you are taking, including vitamins, herbs, eye drops, creams, and lcfk-vlo-sqwrlgf medicines. Any problems you or family members have had with anesthetic medicines. Any bleeding problems you have. Any surgeries you have had. Any medical conditions you have, including recent urinary tract infections. Whether you are or may be . What are the risks? Generally, this is a safe procedure. However, problems may occur, including: Infection. Bleeding. Allergic reactions to medicines. Damage to nearby structures or organs. Difficulty urinating from blockage of the urethra or not being able to urinate (urinary retention). Deep vein thrombosis. This is a blood clot that can develop in your leg. Recurring cancer. What happens before the procedure? When to stop eating and drinking Follow instructions from your health care provider about what you may eat and drink before your procedure. These may include: 8 hours before your procedure ?Stop eating most foods. Do not eat meat, fried foods, or fatty foods. ?Eat only light foods, such as toast or crackers. ?All liquids are okay except energy drinks and alcohol. 6 hours before your procedure ?Stop eating. ?Drink only clear liquids, such as water, clear fruit juice, black coffee, plain tea, and sports drinks. ?Do not drink energy drinks or alcohol. 2 hours before your procedure ?Stop drinking all liquids. ?You may be allowed to take medicines with small sips of water. Medicines Ask your health care provider about: Changing or stopping your regular medicines. This is especially important if you are taking diabetes medicines or blood thinners. Taking medicines such as aspirin and ibuprofen. These medicines can thin your blood. Do not take these medicines unless your health care provider tells you to take them. Taking ipxe-pfa-xhakqnq medicines, vitamins, herbs, and supplements. General instructions If you will be going home right after the procedure, plan to have a responsible adult: ?Take you home from the hospital or clinic. You will not be allowed to drive. ?Care for you for the time you are told. Ask your health care provider what steps will be taken to help prevent infection. These steps may include: ? Washing skin with a germ-killing soap. ? Taking antibiotic medicine. Do not use any products that contain nicotine or tobacco for at least 4 weeks before the procedure. These products include cigarettes, chewing tobacco, and vaping devices, such as e-cigarettes. If you need help quitting, ask your health care provider. What happens during the procedure? An IV will be inserted into one of your veins. You will be given one or more of the following: ?A medicine to help you relax (sedative). ?A medicine that is injected into your spine to numb the area below and slightly above the injection site (spinal anesthetic). ?A medicine that is injected into an area of your body to numb everything below the injection site (regional anesthetic). ?A medicine to make you fall asleep (general anesthetic). Your legs will be placed in foot rests (stirrups) to open your legs and bend your knees. The resectoscope will be passed through your urethra and into your bladder. The part of your bladder with the tumor will be resected by the cutting edge of the resectoscope. Fluid will be passed to rinse out the cut tissues (irrigation). The resectoscope will then be taken out. A small, thin tube (catheter) will be passed through your urethra and into your bladder. The catheter will drain urine into a bag outside of your body. The procedure may vary among health care providers and hospitals. What happens after the procedure? Your blood pressure, heart rate, breathing rate, and blood oxygen level will be monitored until you leave the hospital or clinic. You may continue to receive fluids and medicines through an IV. You will be given pain medicine to relieve pain. You will have a catheter to drain your urine. ?The amount of urine will be measured. If you have blood in your urine, your bladder may be rinsed out by passing fluid through your catheter. You will be encouraged to walk as soon as you can. You may have to wear compression stockings. These stockings help to prevent blood clots and reduce swelling in your legs. If you were given a sedative during the procedure, it can affect you for several hours. Do not drive or operate machinery until your health care provider says that it is safe. Summary Transurethral resection of a bladder tumor is the removal (resection) of a cancerous growth (tumor) on the inside wall of the bladder. To do this procedure, your health care provider uses a thin telescope with a light, a tiny camera, and an electric cutting edge (resectoscope) that is guided to your bladder through your urethra. The part of your bladder that is affected by the tumor will be resected by the cutting edge of the resectoscope. A catheter will be passed through your urethra and into your bladder. The catheter will drain urine into a bag outside of your body. If you will be going home right after the procedure, plan to have a responsible adult take you home from the hospital or clinic. You will not be allowed to drive. This information is not intended to replace advice given to you by your health care provider. Make sure you discuss any questions you have with your health care provider. Document Revised: 06/15/2022 Document Reviewed: 06/15/2022 [employer] Patient Education 2022 [employer]. Follow Up Care 10/14/2023 12:42:46 With:MELISA QUEVEDO, Jose Desai, URL Address: [address] [place], [place] [id number]- When: Unknown [facility] 10-21-2023 Evaluation note Includes: Assessments for all patient encounters Findings [Z68.31 - Body mass index [BMI] 31.0-31.9, adult] assessment of body mass index Medical Established Patient with Kassy Grey [facility] 10/21/2023 Last Documented On 4 12:12PM ; [facility] Chronic kidney disease, stage 4 Medical Established Patient with Kassy Grey [facility] 10/21/2023 Last Documented On 4 12:12PM ; [facility] Essential hypertension Medical Establish ed Patient with Kassy Grey [facility] 10/21/2023 Last Documented On 4 12:12PM ; [facility] Type 2 diabetes mellitus wit hout complication Medical Established Patient with Kassy Grey W[employer]AMATION SYSTEMS OPERATOR 10/21/2023 Last Documented On 4 12:12PM ; [facility] Venipuncture was performed Medical Estab lished Patient with Kassy Grey WATER RECLAMATION SYSTEMS OPERATOR 10/21/2023 Last Documented On 4 12:12PM ; [facility] Visit for: screening for depression [facility] Established Patient with Kassy Grey WATER RECLAMATION SYSTEMS OPERATOR 10/21/2023 Last Documented On 4 12:12PM ; [facility] Visit for: screening for lip oid disorders Medical Established Patient with Kassy Grey W[employer] RE[employer]AMATION SYSTEMS OPERATOR 10/21/2023 Last Documented On 4 12:12PM ; [facility] [Z68.31 - Body mass index [B UT] 31.0-31.9, adult] assessment of body mass index Medical Established Patient with Kassy Grey W[employer] RE[employer]AMATION SYSTEMS OPERATOR 07/19/2023 Last Documented On 4 8:38AM ; [facility] Essential hypertension Medical Establish ed Patient with Kassy Grey WATER RECLAMATION SYSTEMS OPERATOR 07/19/2023 Last Documented On 4 8:38AM ; [facility] Type 2 diabetes mellitus wit hout complication Medical Established Patient with Kassy Grey WATER RECLAMATION SYSTEMS OPERATOR 07/19/2023 Last Documented On 4 8:38AM ; [facility] [Z68.31 - Body mass index [B UT] 31.0-31.9, adult] assessment of body mass index Medical Established Patient with Kassy Grey WATER RECLAMATION SYSTEMS OPERATOR 04/19/2023 Last Documented On 3 9:11AM ; [facility] Chronic kidney disease, stage 4 Medical Established Patient with Kassy Que WATER RE[employer]AMATION SYSTEMS OPERATOR 04/19/2023 Last Documented On 3 9:11AM ; [facility] Essential hypertension Medical Establish ed Patient with Kassy Que WATER RECLAMATION SYSTEMS OPERATOR 04/19/2023 Last Documented On 3 9:11AM ; [facility] Type 2 diabetes mellitus wit hout complication Medical Established Patient with Kassy Grey WATER RECLAMATION SYSTEMS OPERATOR 04/19/2023 Last Documented On 3 9:11AM ; [facility] [Z68.31 - Body mass index [B UT] 31.0-31.9, adult] assessment of body mass index Medical New Patient with Kassy Grey CNP 01/16/2023 Last Documented On 3 11:57AM ; [facility] Chronic kidney disease, stage 4 Medical New Patient with Kassy Grey CNP 01/16/2023 Last Documented On 3 11:57AM ; [facility] Diabetes Risk Test Score was eight score 01/16/2023 Medical New Patient with Kassy Grey CNP 01/16/2023 Last Documented On 3 11:57AM ; [facility] Essential hypertension Medical New Patient with Kassy Grey CNP 01/16/2023 Last Documented On 3 11:57AM ; [facility] Screening for HIV Medical New Patient with Urban Grey CNP 01/16/2023 Last Documented On 3 11:57AM ; [facility] Type 2 diabetes mellitus wit hout complication Medical New Patient with Kassy Grey WATER RE[employer]AMATION SYSTEMS OPERATOR 01/16/2023 Last Documented On 3 11:57AM ; [facility] Visit for: screening for dig estive system disorders Medical New Patient with Kassy Grey CNP 01/16/2023 Last Documented On 3 11:57AM ; [facility] Work Phone: 1(537) 464-263904-29-2024 Progress note* Progress note Date Encounter Last Documented by 10/21/2023 Medical Established Patient Last documented on 10/23/2023; 12:12 PM, Kassy Grey [facility]; [facility] Active Problems & Conditions - N18.4 - Chronic Kidney Disease Stage 4 - E11.9 - Diabetes Mellitus Type 2 Without Complication - I10 - Essential Hypertension Chief Complaint The Chief Complaint is: Patient here for 3 month f/u. Reason For Visit Visit for: Diabetes follow up. Referred Here Prior encounters. History of Present Illness - Allergy list reviewed - Reviewed Medications - Medication list reviewed Patient is here for follow up for A1C. This was 6.2 in the office today. Patient reports he has been able to pick of his medications today. Patient denies any other concerns at this time Current Medication - Acetaminophen 500 MG Oral Tablet 2 tablets as needed, 0 days, 0 refills - Allopurinol 100 MG Oral Tablet twice a day, 0 days, 0 refills - Aspirin 81 MG Oral Tablet Delayed Release Once a day, 0 days, 0 refills - Carvedilol 3.125 MG Oral Tablet Twice a day, 0 days, 0 refills - Farxiga 10 MG Oral Tablet TAKE 1 TABLET BY MOUTH ONCE DAILY, 90 days, 0 refills - Fish Oil 600 MG Oral Capsule twice a day, 0 days, 0 refills - Furosemide 20 MG Oral Tablet twice a day, 0 days, 0 refills - Glimepiride 4 MG Oral Tablet twice a day, 0 days, 0 refills - Simvastatin 10 MG Oral Tablet One a day, 0 days, 0 refills - Solifenacin Succinate 5 MG Oral Tablet 0 days, 0 refills - Tamsulosin HCl 0.4 MG Oral Capsule 100 days, 0 refills - Vitamin D 50 MCG (2000 UT) Oral Capsule Once a day, 0 days, 0 refills Past Medical/Surgical History Reported: Medical: No previous hospitalizations. A recent examination by an foundry metallurgist 03/08/2023 no diabetic retinopathy. Immunization History: Recent immunization for flu. : Not planning a in the next year. Diagnoses: Systemic hypertension. 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 Stage 4 renal. 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 Tobacco use: Not using electronic cigarettes/vaping. Former smoker. Alcohol: Not using alcohol. Drug Use: Not using drugs denied by patient. Sexual: Sexually active, sexual orientation Straight (not lesbian or cerda), and gender identity Male. Allergies - IV DYE, IODINE CONTAINING Reaction: Hives / Urticaria, Skin Rashes / Eruption of skin - Penicillin V Potassium Reaction: Hives / Urticaria, Skin Rashes / Eruption of skin Family History Paternal: Oncologic disorder Maternal: Systemic hypertension Sororal: Breast neoplasm Review Of Systems Systemic: No systemic symptoms. Head: No headache. Otolaryngeal: No ear symptoms, no nasal symptoms, and no throat symptoms. Cardiovascular: No cardiovascular symptoms. Pulmonary: No pulmonary symptoms. Gastrointestinal: No gastrointestinal symptoms. Genitourinary: No genitourinary symptoms. Musculoskeletal: No musculoskeletal symptoms. Neurological: No neurological symptoms. Psychological: No psychological symptoms. Skin: No skin symptoms. Physical Findings - Vitals taken 10/21/2023 11:12 am BP-Sitting R124/72 mmHg Pulse Rate-Fhijbgk93 bpm Hxngyo35 in [id number] lbs 12.8 oz Body Mass Index31.1 kg/m2 Body Surface Area2.1 m2 Oxygen Atfdtxofoa40 % Vital Signs: - Systolic blood pressure < 130 mmHg. - Diastolic Blood Pressure < 80 mmHg. General Appearance: - Awake. - Alert. - In no acute distress. Eyes: General/bilateral: Pupils: - PERRLA. Lungs: - Respiration rhythm and depth was normal. - Clear to auscultation. Cardiovascular: Heart Rate And Rhythm: - Normal. Heart Sounds: - Normal. Abdomen: Auscultation: - Bowel sounds were normal. Musculoskeletal System: General/bilateral: - Normal movement of all extremities. Neurological: - Oriented to time, place, and person. Psychiatric: - Expression of emotions finding was normal. Skin: - General appearance was normal. Tests Blood Analysis: Hemoglobin Studies: ValueDate Blood hemoglobin A1c 6.2%10/21/2023 Hemoglobin A1c level < 7.0%. Blood Endocrine Laboratory Tests: Value Blood glucose level by fingerstick Non-fasting 132 mg/dl Laboratory-based Chemistry: Other Laboratory Tests: Screening for sexually transmitted infections was not performed. Laboratory Studies: Vascular Procedures: Right Antecubital Space. Assessment - Z13.220 - Encounter for screening for lipoid disorders - Z13.31 - Encounter for screening for depression - Z68.31 - Body mass index [BMI] 31.0-31.9, adult - Z01.812 - Encounter for preprocedural laboratory examination - I10 - Essential (primary) hypertension - N18.4 - Chronic kidney disease, stage 4 (severe) - E11.9 - Type 2 diabetes mellitus without complications Therapy - Developmental/Behavioral Screening & Testing - PHQ9. Vaccinations - 1st Dose MODERNA COVID-19 Vaccine Dose #1 Status: Prev Hist Date: 07/15/2020 - 1st Dose MODERNA COVID-19 Vaccine Dose #2 Status: Prev Hist Date: 08/11/2020 - 1st Dose PFIZER COVID-19 Vaccine Dose #1 Status: Prev Hist Date: 05/08/2021 - Fluarix 0.5mL for 6 months and older Dose #1 Status: Prev Hist Date: 04/25/2016 - Influenza virus, split virus, preservative free, IM Dose #1 Status: Prev Hist Date: 04/01/2017 - Influenza virus, split virus, preservative free, IM Dose #2 Status: Prev Hist Date: 04/01/2018 - Influenza virus, split virus, preservative free, IM Dose #3 Status: Prev Hist Date: 04/01/2019 - Influenza virus, split virus, preservative free, IM Dose #4 Status: Prev Hist Date: 05/04/2021 - PCV (Prevnar-13) Dose #1 Status: Prev Hist Date: 10/04/2015 - Td (adult), 5 Lf tetanus toxoid, preservative free, adsorbed Dose #1 Status: Prev Hist Date: 07/13/2010 - Tdap (Boostrix) Dose #1 Status: Prev Hist Date: 09/08/2015 - High Dose Fluzone- 65 yrs and Older Dose #1 Status: Prev Hist Date: 04/13/2020 - High Dose Fluzone- 65 yrs and Older Dose #2 Status: Prev Hist Date: 04/03/2022 - Did not receive dose of Reported: Patient has not received the Covid Vaccine Counseling/Education - Discussed nutritional needs teach healthy choices including fruits and vegetables - Patient education about a proper diet - Referred patient to a diabetes prevention program - Discussed concerns about exercise: promote physical activity Plan StartCited- Encounter for screening for lipoid disorders Outside Labs/General Labs: Lipid Panel (LIPR) EndCited StartCited- Type 2 diabetes mellitus without complications Farxiga 10 MG tablet TAKE 1 TABLET BY MOUTH ONCE DAILY, 90 days, 0 refills EndCited No changes to medications at this time. Patient has PCP, nephrology, urology and cardiology that regularly order labs, will check for labs results. Follow up in 3 months. Notes - Patient is not interested in the COVID-19 vaccination at this time. Other - Patient tolerated venipuncture well; - Number of attempts for venipuncture one Advance Directives - Living Will Health Reminders - Assess BMI satisfied 10/21/2023. - Assess Tobacco Use satisfied 10/21/2023. - Eye Exam satisfied 03/08/2023. - Follow Up Plan BMI Management satisfied 10/21/2023. - MARSHALL-2 satisfied 10/21/2023. - Hemoglobin A1c satisfied 10/21/2023. - PHQ9 / PHQA satisfied 10/21/2023. User Defined 1 MARSHALL-2 score was 0 10/21/2023, MARSHALL-7 score [MARSHALL-7] Feeling nervous, anxious or on edge? + 0 pt : Not at all, [MARSHALL-7] Not being able to stop or control worrying? + 0 pt : Not at all, Patient Health Questionnaire 9-Item total score was 0 10/21/2023, [PHQ-9-1] Little interest or pleasure in doing things? + 0 pt : Not at all, [PHQ-9-2] Feeling down, depressed, or hopeless? + 0 pt : Not at all, [PHQ-9-3] Trouble falling or staying asleep or sleeping too much? + 0 pt : Not at all, [PHQ-9-4] Feeling tired or having little energy? + 0 pt : Not at all, [PHQ-9-5] Poor appetite or overeating? + 0 pt : Not at all, [PHQ-9-6] Feeling bad about yourself-or that you are a failure + 0 pt : Not at all, [PHQ-9-7] Trouble concentrating on things such as reading the newspaper + 0 pt : Not at all, [PHQ-9-8] Moving or speaking so slowly that other people have noticed. + 0 pt : Not at all, and [PHQ-9-9] Thoughts that you would be better off or hurting yourself? + 0 pt : Not at all. [facility]04-29-2024 Instructions Includes: Instructions for all patient encounters Education and Decision Aids were provided during visit for: Discussed nutritional needs teach healthy choices including fruits and vegetables Last Documented On 4 11:17AM ; [facility] Patient education about a pr oper diet Last Documented On 4 11:17AM ; [facility] Discussed concerns about exe rcise : promote physical activity Last Documented On 4 11:17AM ; [facility] Referred patient to a diabet es prevention program Last Documented On 4 11:33AM ; [facility] Discussed nutritional needs teach healthy choices including fruits and vegetables Last Documented On 4 11:44AM ; [facility] Patient education about a pr oper diet Last Documented On 4 11:44AM ; [facility] Discussed concerns about exe rcise : promote physical activity Last Documented On 4 11:44AM ; [facility] Referred Patient to a Diabet es Self-Management Program Last Documented On 4 11:57AM ; [facility] Discussed nutritional needs teach healthy choices including fruits and vegetables Last Documented On 3 11:42AM ; [facility] Patient education about a pr oper diet Last Documented On 3 11:42AM ; [facility] Discussed concerns about exe rcise : promote physical activity Last Documented On 3 11:42AM ; [facility] Referred patient to a diabet es prevention program Last Documented On 3 11:53AM ; [facility] Discussed nutritional needs teach healthy choices including fruits and vegetables Last Documented On 3 1:20PM ; [facility] Patient education about a pr oper diet Last Documented On 3 1:20PM ; [facility] Discussed concerns about exe rcise : promote physical activity Last Documented On 3 1:20PM ; [facility] Referred Patient to a Diabet es Self-Management Program Last Documented On 3 1:43PM ; [facility] Work Phone: [phone] 849-466404-02-2024 Hospital Discharge instructions Patient Education 09/24/2023 16:56:30 Benign Prostatic Hyperplasia Benign Prostatic Hyperplasia Benign prostatic hyperplasia (BPH) is an enlarged prostate gland that is caused by the normal agingprocess. The prostate may get bigger as a man gets older. The condition is not caused by cancer. The prostate is a walnut-sized gland that is involved in the production of semen. It is located in front of the rectum and below the bladder. The bladder stores urine. The urethra carries stored urine ou t of the body. An enlarged prostate can press on the urethra. This can make it harder to pass urine. The buildup of urine in the bladder can cause infection. Back pressure and infection may progress to bladder damage and kidney (renal) failure. What are the causes? This condition is part of the normal aging process. However, not all men develop problems from thiscondition. If the prostate enlarges away from the urethra, urine flow will not be blocked. If it enlarges toward the urethra and compresses it, there will be problems passing urine. What increases the risk? This condition is more likely to develop in men older than 50 years. What are the signs or symptoms? Symptoms of this condition include: Getting up often during the night to urinate. Needing to urinate frequently during the day. Difficulty starting urine flow. Decrease in size and strength of your urine stream. Leaking (dribbling) after urinating. Inability to pass urine. This needs immediate treatment. Inability to completely empty your bladder. Pain when you pass urine. This is more common if there is also an infection. Urinary tract infection (UTI). How is this diagnosed? This condition is diagnosed based on your medical history, a physical exam, and your symptoms. Tests will also be done, such as: A post-void bladder scan. This measures any amount of urine that may remain in your bladder after you finish urinating. A digital rectal exam. In a rectal exam, your health care provider checks your prostate by putting a lubricated, gloved finger into your rectum to feel the back of your prostate gland. This exam detects the size of your gland and any abnormal lumps or growths. An exam of your urine (urinalysis). A prostate specific antigen (PSA) screening. This is a blood test used to screen for prostate cancer. An ultrasound. This test uses sound waves to electronically produce a picture of your prostate gland. Your health care provider may refer you to a specialist in kidney and prostate diseases (urologist). How is this treated? Once symptoms begin, your health care provider will monitor your condition (active surveillance or watchful waiting). Treatment for this condition will depend on the severity of your condition. Treatment may include: Observation and yearly exams. This may be the only treatment needed if your condition and symptoms are mild. Medicines to relieve your symptoms, including: ?Medicines to shrink the prostate. ?Medicines to relax the muscle of the prostate. Surgery in severe cases. Surgery may include: ?Prostatectomy. In this procedure, the prostate tissue is removed completely through an open incision or with a laparoscope or robotics. ?Transurethral resection of the prostate (TURP). In this procedure, a tool is inserted through the opening at the tip of the penis (urethra). It is used to cut away tissue of the inner core of the prostate. The pieces are removed through the same opening of the penis. This removes the blockage. ?Transurethral incision (TUIP). In this procedure, small cuts are made in the prostate. This lessens the prostate's pressure on the urethra. ?Transurethral microwave thermotherapy (TUMT). This procedure uses microwaves to create heat. The heat destroys and removes a small amount of prostate tissue. ?Transurethral needle ablation (TUNA). This procedure uses radio frequencies to destroy and remove a small amount of prostate tissue. ?Interstitial laser coagulation (ILC). This procedure uses a laser to destroy and remove a small amount of prostate tissue. ?Transurethral electrovaporization (TUVP). This procedure uses electrodes to destroy and remove a small amount of prostate tissue. ?Prostatic urethral lift. This procedure inserts an implant to push the lobes of the prostate away from the urethra. Follow these instructions at home: Take bnqf-dfs-cgbotnf and prescription medicines only as told by your health care provider. Monitor your symptoms for any changes. Contact your health care provider with any changes. Avoid drinking large amounts of liquid before going to bed or out in public. Avoid or reduce how much caffeine or alcohol you drink. Give yourself time when you urinate. Keep all follow-up visits. This is important. Contact a health care provider if: You have unexplained back pain. Your symptoms do not get better with treatment. You develop side effects from the medicine you are taking. Your urine becomes very dark or has a bad smell. Your lower abdomen becomes distended and you have trouble passing urine. Get help right away if: You have a fever or chills. You suddenly cannot urinate. You feel light-headed or very dizzy, or you faint. There are large amounts of blood or clots in your urine. Your urinary problems become hard to manage. You develop moderate to severe low back or flank pain. The flank is the side of your body between the ribs and the hip. These symptoms may be an emergency. Get help right away. Call 911. Do not wait to see if the symptoms will go away. Do not drive yourself to the hospital. Summary Benign prostatic hyperplasia (BPH) is an enlarged prostate that is caused by the normal aging process. It is not caused by cancer. An enlarged prostate can press on the urethra. This can make it hard to pass urine. This condition is more likely to develop in men older than 50 years. Get help right away if you suddenly cannot urinate. This information is not intended to replace advice given to you by your health care provider. Make sure you discuss any questions you have with your health care provider. Document Revised: 12/27/2021 Document Reviewed: 12/27/2021 [employer] Patient Education 2022 [employer]. 09/24/2023 16:56:29 Urinary Incontinence Urinary Incontinence Urinary incontinence refers to a condition in which a person is unable to control where and when topass urine. A person with this condition will urinate involuntarily. This means that the person urinates when he or she does not mean to. What are the causes? This condition may be caused by: Medicines. Infections. Constipation. Overactive bladder muscles. Weak bladder muscles. Weak pelvic floor muscles. These muscles provide support for the bladder, intestine, and, in women,the uterus. Enlarged prostate in men. The prostate is a gland near the bladder. When it gets too big, it can pinch the urethra. With the urethra blocked, the bladder can weaken and lose the ability to empty properly. Surgery. Emotional factors, such as anxiety, stress, or post-traumatic stress disorder (PTSD). Spinal cord injury, nerve injury, or other neurological conditions. Pelvic organ prolapse. This happens in women when organs move out of place and into the vagina. This movement can prevent the bladder and urethra from working properly. What increases the risk? The following factors may make you more likely to develop this condition: Age. The older you are, the higher the risk. Obesity. Being physically inactive. and childbirth. Menopause. Diseases that affect the nerves or spinal cord. Long-term, or chronic, coughing. This can increase pressure on the bladder and pelvic floor muscles. What are the signs or symptoms? Symptoms may vary depending on the type of urinary incontinence you have. They include: A sudden urge to urinate, and passing urine involuntarily before you can get to a bathroom (urge incontinence). Suddenly passing urine when doing activities that force urine to pass, such as coughing, laughing, exercising, or sneezing (stress incontinence). Needing to urinate often but urinating only a small amount, or constantly dribbling urine (overflowincontinence). Urinating because you cannot get to the bathroom in time due to a physical disability, such as arthritis or injury, or due to a communication or thinking problem, such as Alzheimer's disease (functional incontinence). How is this diagnosed? This condition may be diagnosed based on: Your medical history. A physical exam. Tests, such as: ?Urine tests. ?X-rays of your kidney and bladder. ?Ultrasound. ?CT scan. ?Cystoscopy. In this procedure, a health care provider inserts a tube with a light and camera (cystoscope) through the urethra and into the bladder to check for problems. ?Urodynamic testing. These tests assess how well the bladder, urethra, and sphincter can store and release urine. There are different types of urodynamic tests, and they vary depending on what the test is measuring. To help diagnose your condition, your health care provider may recommend that you keep a log of when you urinate and how much you urinate. How is this treated? Treatment for this condition depends on the type of incontinence that you have and its cause. Treatment may include: Lifestyle changes, such as: ?Quitting smoking. ?Maintaining a healthy weight. ?Staying active. Try to get 150 minutes of moderate-intensity exercise every week. Ask your health care provider which activities are safe for you. ?Eating a healthy diet. ?Avoid high-fat foods, like fried foods. ?Avoid refined carbohydrates like white bread and white rice. ?Limit how much alcohol and caffeine you drink. ?Increase your fiber intake. Healthy sources of fiber include beans, whole grains, and fresh fruitsand vegetables. Behavioral changes, such as: ?Pelvic floor muscle exercises. ?Bladder training, such as lengthening the amount of time between bathroom breaks, or using the bathroom at regular intervals. ?Using techniques to suppress bladder urges. This can include distraction techniques or controlled breathing exercises. Medicines, such as: ?Medicines to relax the bladder muscles and prevent bladder spasms. ?Medicines to help slow or prevent the growth of a man's prostate. ?Botox injections. These can help relax the bladder muscles. Treatments, such as: ?Using pulses of electricity to help change bladder reflexes (electrical nerve stimulation). ?For women, using a medical transcription supervisor to prevent urine leaks. This is a small, tampon-like, disposabledevice that is inserted into the urethra. ?Injecting collagen or carbon beads (bulking agents) into the urinary sphincter. These can help thicken tissue and close the bladder opening. ?Surgery. Follow these instructions at home: Lifestyle Limit alcohol and caffeine. These can fill your bladder quickly and irritate it. Keep yourself clean to help prevent odors and skin damage. Ask your health care provider about special skin creams and cleansers that can protect the skin from urine. Consider wearing pads or adult diapers. Make sure to change them regularly, and always change them right after experiencing incontinence. General instructions Take zaph-etn-kfoacxz and prescription medicines only as told by your health care provider. Use the bathroom about every 3 4 hours, even if you do not feel the need to urinate. Try to empty your bladder completely every time. After urinating, wait a minute. Then try to urinate again. Make sure you are in a relaxed position while urinating. If your incontinence is caused by nerve problems, keep a log of the medicines you take and the times you go to the bathroom. Keep all follow-up visits. This is important. Where to find more information [employer] [place] [employer] and [employer]estive and Kidney Diseases: www.niddk.nih.gov [place] [employer]: www.urologyhealth.org Contact a health care provider if: You have pain that gets worse. Your incontinence gets worse. Get help right away if: You have a fever or chills. You are unable to urinate. You have redness in your groin area or down your legs. Summary Urinary incontinence refers to a condition in which a person is unable to control where and when topass urine. This condition may be caused by medicines, infection, weak bladder muscles, weak pelvic floor muscles, enlargement of the prostate (in men), or surgery. Factors such as older age, obesity, and childbirth, menopause, neurological diseases, andchronic coughing may increase your risk for developing this condition. Types of urinary incontinence include urge incontinence, stress incontinence, overflow incontinence, and functional incontinence. This condition is usually treated first with lifestyle and behavioral changes, such as quitting smoking, eating a healthier diet, and doing regular pelvic floor exercises. Other treatment options include medicines, bulking agents, medical devices, electrical nerve stimulation, or surgery. This information is not intended to replace advice given to you by your health care provider. Make sure you discuss any questions you have with your health care provider. Document Revised: 01/13/2021 Document Reviewed: 01/13/2021 [employer] Patient Education 2022 [employer]. 09/24/2023 16:56:25 Overactive Bladder, Adult Overactive Bladder, Adult Overactive bladder is a condition in which a person has a sudden and frequent need to urinate. A person might also leak urine if he or she cannot get to the bathroom fast enough (urinary incontinence). Sometimes, symptoms can interfere with work or social activities. What are the causes? Overactive bladder is associated with poor nerve signals between your bladder and your brain. Your bladder may get the signal to empty before it is full. You may also have very sensitive muscles thatmake your bladder squeeze too soon. This condition may also be caused by other factors, such as: Medical conditions: ?Urinary tract infection. ?Infection of nearby tissues. ?Prostate enlargement. ?Bladder stones, inflammation, or tumors. ?Diabetes. ?Muscle or nerve weakness, especially from these conditions: ?A spinal cord injury. ?Stroke. ?Multiple sclerosis. ?Parkinson's disease. Other causes: ?Surgery on the uterus or urethra. ?Drinking too much caffeine or alcohol. ?Certain medicines, especially those that eliminate extra fluid in the body (diuretics). ?Constipation. What increases the risk? You may be at greater risk for overactive bladder if you: Are an older adult. Smoke. Are going through menopause. Have prostate problems. Have a neurological disease, such as stroke, dementia, Parkinson's disease, or multiple sclerosis (MS). Eat or drink alcohol, spicy food, caffeine, and other things that irritate the bladder. Are overweight or obese. What are the signs or symptoms? Symptoms of this condition include a sudden, strong urge to urinate. Other symptoms include: Leaking urine. Urinating 8 or more times a day. Waking up to urinate 2 or more times overnight. How is this diagnosed? This condition may be diagnosed based on: Your symptoms and medical history. A physical exam. Blood or urine tests to check for possible causes, such as infection. You may also need to see a health care provider who specializes in urinary tract problems. This is called a urologist. How is this treated? Treatment for overactive bladder depends on the cause of your condition and whether it is mild or severe. Treatment may include: Bladder training, such as: ?Learning to control the urge to urinate by following a schedule to urinate at regular intervals. ?Doing Kegel exercises to strengthen the pelvic floor muscles that support your bladder. Special devices, such as: ?Biofeedback. This uses sensors to help you become aware of your body's signals. ?Electrical stimulation. This uses electrodes placed inside the body (implanted) or outside the body. These electrodes send gentle pulses of electricity to strengthen the nerves or muscles that control the bladder. ?Women may use a plastic device, called a pessary, that fits into the vagina and supports the bladder. Medicines, such as: ?Antibiotics to treat bladder infection. ?Antispasmodics to stop the bladder from releasing urine at the wrong time. ?Tricyclic antidepressants to relax bladder muscles. ?Injections of botulinum toxin type A directly into the bladder tissue to relax bladder muscles. Surgery, such as: ?A device may be implanted to help manage the nerve signals that control urination. ?An electrode may be implanted to stimulate electrical signals in the bladder. ?A procedure may be done to change the shape of the bladder. This is done only in very severe cases. Follow these instructions at home: Eating and drinking Make diet or lifestyle changes recommended by your health care provider. These may include: ?Drinking fluids throughout the day and not only with meals. ?Cutting down on caffeine or alcohol. ?Eating a healthy and balanced diet to prevent constipation. This may include: ?Choosing foods that are high in fiber, such as beans, whole grains, and fresh fruits and vegetables. ?Limiting foods that are high in fat and processed sugars, such as fried and sweet foods. Lifestyle Lose weight if needed. Do not use any products that contain nicotine or tobacco. These include cigarettes, chewing tobacco, and vaping devices, such as e-cigarettes. If you need help quitting, ask your health care provider. General instructions Take odaw-omd-igqtxyh and prescription medicines only as told by your health care provider. If you were prescribed an antibiotic medicine, take it as told by your health care provider. Do notstop taking the antibiotic even if you start to feel better. Use any implants or pessary as told by your health care provider. If needed, wear pads to absorb urine leakage. Keep a log to track how much and when you drink, and when you need to urinate. This will help your health care provider monitor your condition. Keep all follow-up visits. This is important. Contact a health care provider if: You have a fever or chills. Your symptoms do not get better with treatment. Your pain and discomfort get worse. You have more frequent urges to urinate. Get help right away if: You are not able to control your bladder. Summary Overactive bladder refers to a condition in which a person has a sudden and frequent need to urinate. Several conditions may lead to an overactive bladder. Treatment for overactive bladder depends on the cause and severity of your condition. Making lifestyle changes, doing Kegel exercises, keeping a log, and taking medicines can help with this condition. This information is not intended to replace advice given to you by your health care provider. Make sure you discuss any questions you have with your health care provider. Document Revised: 02/27/2021 Document Reviewed: 02/27/2021 [employer] Patient Education 2022 [employer]. 09/24/2023 16:56:24 Hematuria, Adult Hematuria, Adult Hematuria is blood in the urine. Blood may be visible in the urine, or it may be identified with a test. This condition can be caused by infections of the bladder, urethra, kidney, or prostate. Otherpossible causes include: Kidney stones. Cancer of the urinary tract. Too much calcium in the urine. Conditions that are passed from parent to child (inherited conditions). Exercise that requires a lot of energy. Infections can usually be treated with medicine, and a kidney stone usually will pass through your urine. If neither of these is the cause of your hematuria, more tests may be needed to identify the cause of your symptoms. It is very important to tell your health care provider about any blood in your urine, even if it ispainless or the blood stops without treatment. Blood in the urine, when it happens and then stops and then happens again, can be a symptom of a very serious condition, including cancer. There is no pain in the initial stages of many urinary cancers. Follow these instructions at home: Medicines Take vtym-mck-givttua and prescription medicines only as told by your health care provider. If you were prescribed an antibiotic medicine, take it as told by your health care provider. Do notstop taking the antibiotic even if you start to feel better. Eating and drinking Drink enough fluid to keep your urine pale yellow. It is recommended that you drink 3 4 quarts (2.83.8 L) a day. If you have been diagnosed with an infection, drinking cranberry juice in addition tolarge amounts of water is recommended. Avoid caffeine, tea, and carbonated beverages. These tend to irritate the bladder. Avoid alcohol because it may irritate the prostate (in males). General instructions If you have been diagnosed with a kidney stone, follow your health care provider's instructions about straining your urine to catch the stone. Empty your bladder often. Avoid holding urine for long periods of time. If you are female: ?After a bowel movement, wipe from front to back and use each piece of toilet paper only once. ?Empty your bladder before and after sex. Pay attention to any changes in your symptoms. Tell your health care provider about any changes or any new symptoms. It is up to you to get the results of any tests. Ask your health care provider, or the department that is doing the test, when your results will be ready. Keep all follow-up visits. This is important. Contact a health care provider if: You develop back pain. You have a fever or chills. You have nausea or vomiting. Your symptoms do not improve after 3 days. Your symptoms get worse. Get help right away if: You develop severe vomiting and are unable to take medicine without vomiting. You develop severe pain in your back or abdomen even though you are taking medicine. You pass a large amount of blood in your urine. You pass blood clots in your urine. You feel very weak or like you might faint. You faint. Summary Hematuria is blood in the urine. It has many possible causes. It is very important that you tell your health care provider about any blood in your urine, even ifit is painless or the blood stops without treatment. Take jhzm-foo-fhmbtkr and prescription medicines only as told by your health care provider. Drink enough fluid to keep your urine pale yellow. This information is not intended to replace advice given to you by your health care provider. Make sure you discuss any questions you have with your health care provider. Document Revised: 02/08/2021 Document Reviewed: 02/08/2021 [employer] Patient Education 2022 [employer]. [facility] 01-26-2024 Evaluation note Includes: Assessments for all patient encounters Findings Encounter Date [Z68.31 - Body mass index [B UT] 31.0-31.9, adult] assessment of body mass index Medical Established Patient with Kassy Grey WATER RECLAMATION SYSTEMS OPERATOR 07/19/2023 Last Documented On 4 8:38AM ; [facility] Essential hypertension Medical Establish ed Patient with Kassy Que WATER RECLAMATION SYSTEMS OPERATOR 07/19/2023 Last Documented On 4 8:38AM ; [facility] Type 2 diabetes mellitus wit hout complication Medical Established Patient with Kassy Que WATER RECLAMATION SYSTEMS OPERATOR 07/19/2023 Last Documented On 4 8:38AM ; [facility] [Z68.31 - Body mass index [B UT] 31.0-31.9, adult] assessment of body mass index Medical Established Patient with Kassy Que WATER RECLAMATION SYSTEMS OPERATOR 04/19/2023 Last Documented On 3 9:11AM ; [facility] Chronic kidney disease, stage 4 Medical Established Patient with Kassy Que WATER RECLAMATION SYSTEMS OPERATOR 04/19/2023 Last Documented On 3 9:11AM ; [facility] Essential hypertension Medical Establish ed Patient with Kassy Que WATER RECLAMATION SYSTEMS OPERATOR 04/19/2023 Last Documented On 3 9:11AM ; [facility] Type 2 diabetes mellitus wit hout complication Medical Established Patient with Kassy Que WATER RECLAMATION SYSTEMS OPERATOR 04/19/2023 Last Documented On 3 9:11AM ; [facility] [Z68.31 - Body mass index [B UT] 31.0-31.9, adult] assessment of body mass index Medical New Patient with Kassy Que WATER RECLAMATION SYSTEMS OPERATOR 01/16/2023 Last Documented On 3 11:57AM ; [facility] Chronic kidney disease, stage 4 Medical New Patient with Kassy Que WATER RECLAMATION SYSTEMS OPERATOR 01/16/2023 Last Documented On 3 11:57AM ; [facility] Diabetes Risk Test Score was eight score 01/16/2023 Medical New Patient with Kassy Grey CNP 01/16/2023 Last Documented On 3 11:57AM ; [facility] Essential hypertension Medical New Patient with Kassy Grey CNP 01/16/2023 Last Documented On 3 11:57AM ; [facility] Screening for HIV Medical New Patient with Urban Grey CNP 01/16/2023 Last Documented On 3 11:57AM ; [facility] Type 2 diabetes mellitus wit hout complication Medical New Patient with Kassy Grey CNP 01/16/2023 Last Documented On 3 11:57AM ; [facility] Visit for: screening for dig estive system disorders Medical New Patient with Kassy Grey CNP 01/16/2023 Last Documented On 3 11:57AM ; [facility] Work Phone: 1(750) 846-982501-26-2024 Progress note* Progress note Date Encounter Last Documented by 07/19/2023 Medical Established Patient Last documented on 07/23/2023; 8:38 AM, Kassy Grey WATER RECLAMATION SYSTEMS OPERATOR; [facility] Active Problems & Conditions - N18.4 - Chronic Kidney Disease Stage 4 - E11.9 - Diabetes Mellitus Type 2 Without Complication - I10 - Essential Hypertension Chief Complaint The Chief Complaint is: Pt here for f/u to get refills of Farxiga. Pt has PCP and sees him on Saturday. Last diabetic eye exam 3 months ago in [place] at [facility], called and asked them to fax exam. Reason For Visit Visit for: medication refills. Referred Here Referred by emergency room. Prior encounters. History of Present Illness - Allergy list reviewed - Reviewed Medications - Medication list reviewed Patient is here for medication refill. Patient reports recent UTI, went to the ER for blood in the urine and was diagnosed with the UTI and had catheter placed due to urinary retention. Has been taking antibiotics, had marquez removed and is doing better. Patient reports blood sugar at home has been mostly between 110-120. With an occasion low of 70-80 Current Medication - Acetaminophen 500 MG Oral Tablet 2 tablets as needed, 0 days, 0 refills - Alfuzosin HCl ER 10 MG Oral Tablet Extended Release 24 Hour Once a day, 0 days, 0 refills - Allopurinol 100 MG Oral Tablet twice a day, 0 days, 0 refills - Aspirin 81 MG Oral Tablet Delayed Release Once a day, 0 days, 0 refills - Carvedilol 3.125 MG Oral Tablet Twice a day, 0 days, 0 refills - Farxiga 10 MG Oral Tablet TAKE 1 TABLET BY MOUTH ONCE DAILY, 90 days, 0 refills - Fish Oil 600 MG Oral Capsule twice a day, 0 days, 0 refills - Furosemide 20 MG Oral Tablet twice a day, 0 days, 0 refills - Glimepiride 4 MG Oral Tablet twice a day, 0 days, 0 refills - Simvastatin 10 MG Oral Tablet One a day, 0 days, 0 refills - Solifenacin Succinate 5 MG Oral Tablet 0 days, 0 refills - Vitamin D 50 MCG (2000 UT) Oral Capsule Once a day, 0 days, 0 refills Past Medical/Surgical History Reported: Medical: No previous hospitalizations. A recent examination by an foundry metallurgist 03/08/2023 no diabetic retinopathy. Immunization History: Recent immunization for flu. : Not planning to have a baby in the next 12 months. Diagnoses: Systemic hypertension. 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 Stage 4 renal. 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 Behavioral: Not a current tobacco user. Alcohol: Not using alcohol. Drug Use: Not using drugs denied by patient. Sexual: Not sexually active. Sexual orientation Straight (not lesbian or cerda) and gender identity Male. Allergies - IV DYE, IODINE CONTAINING Reaction: Hives / Urticaria, Skin Rashes / Eruption of skin - Penicillin V Potassium Reaction: Hives / Urticaria, Skin Rashes / Eruption of skin Family History Paternal: Oncologic disorder Maternal: Systemic hypertension Sororal: Breast neoplasm Review Of Systems Systemic: No systemic symptoms. Head: No head symptoms. Otolaryngeal: No ear symptoms, no nasal symptoms, and no throat symptoms. Cardiovascular: No cardiovascular symptoms. Pulmonary: No pulmonary symptoms. Gastrointestinal: No gastrointestinal symptoms. Genitourinary: No genitourinary symptoms. Musculoskeletal: No musculoskeletal symptoms. Neurological: No neurological symptoms. Psychological: No psychological symptoms. Skin: No skin symptoms. Physical Findings - Vitals taken 07/19/2023 11:41 am BP-Sitting R109/70 mmHg Pulse Rate-Xoqffpy65 bpm Gdbbxt49 in Lfocdi020 lbs Body Mass Index31.5 kg/m2 Body Surface Area2.1 m2 Oxygen Muuzrfdiiw05 % Vital Signs: - Systolic blood pressure < 130 mmHg. - Diastolic Blood Pressure < 80 mmHg. General Appearance: - Awake. - Alert. - In no acute distress. Eyes: General/bilateral: Pupils: - PERRLA. Lungs: - Respiration rhythm and depth was normal. - Clear to auscultation. Cardiovascular: Heart Rate And Rhythm: - Normal. Heart Sounds: - Normal. Abdomen: Auscultation: - Bowel sounds were normal. Musculoskeletal System: General/bilateral: - Normal movement of all extremities. Neurological: - Oriented to time, place, and person. Psychiatric: - Expression of emotions finding was normal. Skin: - General appearance was normal. Tests Blood Analysis: Hemoglobin Studies: ValueDate Blood hemoglobin A1c 6.8%07/19/2023 Hemoglobin A1c level < 7.0%. Blood Endocrine Laboratory Tests: Value Blood glucose level by fingerstick Non-fasting 128 mg/dl Assessment - Z68.31 - Body mass index [BMI] 31.0-31.9, adult - I10 - Essential (primary) hypertension - E11.9 - Type 2 diabetes mellitus without complications Vaccinations - Received dose of Reported: Patient has received the COVID Vaccine Counseling/Education - Discussed nutritional needs teach healthy choices including fruits and vegetables - Patient education about a proper diet - Referred Patient to a Diabetes Self-Management Program - Discussed concerns about exercise: promote physical activity Plan StartCited- Type 2 diabetes mellitus without complications Farxiga 10 MG tablet TAKE 1 TABLET BY MOUTH ONCE DAILY, 90 days, 0 refills EndCited Patient has an appointment to follow up on the UTI. Requested diabetic eye exam records. Patient to follow up in 3 months. Advance Directives - Living Will Health Reminders - Assess BMI satisfied 07/19/2023. - Assess Tobacco Use satisfied 07/19/2023. - Eye Exam satisfied 03/08/2023. - Follow Up Plan BMI Management satisfied 07/19/2023. - MARSHALL-2 satisfied 07/19/2023. - Hemoglobin A1c satisfied 07/19/2023. - PHQ9 / PHQA satisfied 07/19/2023. User Defined 1 Not afraid of someone you have a relationship with No. Has lack of transportation kept patient from medical appointments or from getting medications: No and lack of transportation has kept patient from beneficial non-medical activities: No. Not planning to have a baby in the next 12 months. Do you feel stress - tense, restless, nervous, or anxious, or unable to sleep at night because your mind is troubled all the time - these days? Not at all and Does patient feel physically and emotionally safe where he/she lives: Yes. Is patient is worried about losing housing: No. What is the highest grade or level of school you have completed or the highest degree you have received? More than high school. In the past year, patient or family members in household were unable to get needed clothing: No, unable to get needed early childhood associate: No, unable to get needed phone: No, unable to get needed utilities: No, unable to get needed Medicine or Health Care: No, and In the past year, patient or family members in household were unable to get needed food: No. How often does patient see or talk to people that that he/she cares about and feels close to: 5 or more times a week. MARSHALL-2 score was 0 07/19/2023, MARSHALL-7 score [MARSHALL-7] Feeling nervous, anxious or on edge? + 0 pt : Not at all, [MARSHALL-7] Not being able to stop or control worrying? + 0 pt : Not at all, Patient Health Questionnaire 9-Item total score was 0 07/19/2023, [PHQ-9-1] Little interest or pleasure in doing things? + 0 pt : Not at all, [PHQ-9-2] Feeling down, depressed, or hopeless? + 0 pt : Not at all, [PHQ-9-3] Trouble falling or staying asleep or sleeping too much? + 0 pt : Not at all, [PHQ-9-4] Feeling tired or having little energy? + 0 pt : Not at all, [PHQ-9-5] Poor appetite or overeating? + 0 pt : Not at all, [PHQ-9-6] Feeling bad about yourself-or that you are a failure + 0 pt : Not at all, [PHQ-9-7] Trouble concentrating on things such as reading the newspaper + 0 pt : Not at all, [PHQ-9-8] Moving or speaking so slowly that other people have noticed. + 0 pt : Not at all, and [PHQ-9-9] Thoughts that you would be better off or hurting yourself? + 0 pt : Not at all. [facility]01-26-2024 Instructions Includes: Instructions for all patient encounters Education and Decision Aids were provided during visit for: Discussed nutritional needs teach healthy choices including fruits and vegetables Last Documented On 4 11:44AM ; [facility] Patient education about a pr oper diet Last Documented On 4 11:44AM ; [facility] Discussed concerns about exe rcise : promote physical activity Last Documented On 4 11:44AM ; [facility] Referred Patient to a Diabet es Self-Management Program Last Documented On 4 11:57AM ; [facility] Discussed nutritional needs teach healthy choices including fruits and vegetables Last Documented On 3 11:42AM ; [facility] Patient education about a pr oper diet Last Documented On 3 11:42AM ; [facility] Discussed concerns about exe rcise : promote physical activity Last Documented On 3 11:42AM ; [facility] Referred patient to a diabet es prevention program Last Documented On 3 11:53AM ; [facility] Discussed nutritional needs teach healthy choices including fruits and vegetables Last Documented On 3 1:20PM ; [facility] Patient education about a pr oper diet Last Documented On 3 1:20PM ; [facility] Discussed concerns about exe rcise : promote physical activity Last Documented On 3 1:20PM ; [facility] Referred Patient to a Diabet es Self-Management Program Last Documented On 3 1:43PM ; [facility] Work Phone: 1(644) 416-359201-23-2024 Evaluation note* Encounter Date Diagnosis Assessment Notes Treatment Notes Treatment Clinical Notes Jun, Chronic kidney disease, stage IV (severe) (ICD-10 - N18.4) 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 Serum creatinine is at baseline is 2.0-2.2 mg/dl .SCr was up to 2.9 mg/dl while on ACEI. Pro/Cr < 500 mg/g. No compelling reason to add ACEI. He is alreading on farxiga Blood pressure is well controlled Volume status well controlled with the current dose of Lasix. DM is well controlled Avoid NSAIDs. continue good hydration I will follow-up with the patient in 4 months with lab work and urine test as above Jun, Diabetes mellitus type 2 in nonobese (ICD-10 - E11.9) Patient has been diabetic for 30 years. Diabetes well controlled.On SLTG-2 inhibitor Patient has mild proteinuria. follows with his PCP for DM management Jun, Primary hypertension (ICD-10 - I10) Blood pressure is well controlled. I asked the patient to monitor his blood pressure at home Jun, Hyperuricemia (ICD-1 0 - E79.0) Patient is on allopurinol . Uric acid is within normal limit Jun, Hyperlipidemia, unspecified hyperlipidemia type (ICD-10 - E78.5) LDL goal is below 100. Patient is working with his PCP for this. On statin Jun, BPH loc w/o ur obs/LUTS (ICD-10 - N40.0) continue Alfluzosin . follows with Dr. Muhammad for also urethral stricture Jun, Hyperkalemia (ICD-10 - E87.5) resolved with kayexalate and stopping ACEI. I asked the patient to follow a low potassium diet. Jun, Anemia, unspecified type (ICD-10 - D64.9) Hemoglobin is > 13 g/dL. Patient has adequate iron, VB12 and folate No need for LUCIA Jun, Vitamin D deficiency (ICD-10 - E55.9) 25 OH VD is WNL. Continue OTC VD 2000 U DAILY [employer] Other 01-15-2024 Hospital Discharge instructions Patient Education 07/08/2023 14:39:29 Overactive Bladder, Adult Overactive Bladder, Adult Overactive bladder is a condition in which a person has a sudden and frequent need to urinate. A person might also leak urine if he or she cannot get to the bathroom fast enough (urinary incontinence). Sometimes, symptoms can interfere with work or social activities. What are the causes? Overactive bladder is associated with poor nerve signals between your bladder and your brain. Your bladder may get the signal to empty before it is full. You may also have very sensitive muscles thatmake your bladder squeeze too soon. This condition may also be caused by other factors, such as: Medical conditions: ?Urinary tract infection. ?Infection of nearby tissues. ?Prostate enlargement. ?Bladder stones, inflammation, or tumors. ?Diabetes. ?Muscle or nerve weakness, especially from these conditions: ?A spinal cord injury. ?Stroke. ?Multiple sclerosis. ?Parkinson's disease. Other causes: ?Surgery on the uterus or urethra. ?Drinking too much caffeine or alcohol. ?Certain medicines, especially those that eliminate extra fluid in the body (diuretics). ?Constipation. What increases the risk? You may be at greater risk for overactive bladder if you: Are an older adult. Smoke. Are going through menopause. Have prostate problems. Have a neurological disease, such as stroke, dementia, Parkinson's disease, or multiple sclerosis (MS). Eat or drink alcohol, spicy food, caffeine, and other things that irritate the bladder. Are overweight or obese. What are the signs or symptoms? Symptoms of this condition include a sudden, strong urge to urinate. Other symptoms include: Leaking urine. Urinating 8 or more times a day. Waking up to urinate 2 or more times overnight. How is this diagnosed? This condition may be diagnosed based on: Your symptoms and medical history. A physical exam. Blood or urine tests to check for possible causes, such as infection. You may also need to see a health care provider who specializes in urinary tract problems. This is called a urologist. How is this treated? Treatment for overactive bladder depends on the cause of your condition and whether it is mild or severe. Treatment may include: Bladder training, such as: ?Learning to control the urge to urinate by following a schedule to urinate at regular intervals. ?Doing Kegel exercises to strengthen the pelvic floor muscles that support your bladder. Special devices, such as: ?Biofeedback. This uses sensors to help you become aware of your body's signals. ?Electrical stimulation. This uses electrodes placed inside the body (implanted) or outside the body. These electrodes send gentle pulses of electricity to strengthen the nerves or muscles that control the bladder. ?Women may use a plastic device, called a pessary, that fits into the vagina and supports the bladder. Medicines, such as: ?Antibiotics to treat bladder infection. ?Antispasmodics to stop the bladder from releasing urine at the wrong time. ?Tricyclic antidepressants to relax bladder muscles. ?Injections of botulinum toxin type A directly into the bladder tissue to relax bladder muscles. Surgery, such as: ?A device may be implanted to help manage the nerve signals that control urination. ?An electrode may be implanted to stimulate electrical signals in the bladder. ?A procedure may be done to change the shape of the bladder. This is done only in very severe cases. Follow these instructions at home: Eating and drinking Make diet or lifestyle changes recommended by your health care provider. These may include: ?Drinking fluids throughout the day and not only with meals. ?Cutting down on caffeine or alcohol. ?Eating a healthy and balanced diet to prevent constipation. This may include: ?Choosing foods that are high in fiber, such as beans, whole grains, and fresh fruits and vegetables. ?Limiting foods that are high in fat and processed sugars, such as fried and sweet foods. Lifestyle Lose weight if needed. Do not use any products that contain nicotine or tobacco. These include cigarettes, chewing tobacco, and vaping devices, such as e-cigarettes. If you need help quitting, ask your health care provider. General instructions Take basr-cot-nwqbujy and prescription medicines only as told by your health care provider. If you were prescribed an antibiotic medicine, take it as told by your health care provider. Do notstop taking the antibiotic even if you start to feel better. Use any implants or pessary as told by your health care provider. If needed, wear pads to absorb urine leakage. Keep a log to track how much and when you drink, and when you need to urinate. This will help your health care provider monitor your condition. Keep all follow-up visits. This is important. Contact a health care provider if: You have a fever or chills. Your symptoms do not get better with treatment. Your pain and discomfort get worse. You have more frequent urges to urinate. Get help right away if: You are not able to control your bladder. Summary Overactive bladder refers to a condition in which a person has a sudden and frequent need to urinate. Several conditions may lead to an overactive bladder. Treatment for overactive bladder depends on the cause and severity of your condition. Making lifestyle changes, doing Kegel exercises, keeping a log, and taking medicines can help with this condition. This information is not intended to replace advice given to you by your health care provider. Make sure you discuss any questions you have with your health care provider. Document Revised: 02/27/2021 Document Reviewed: 02/27/2021 [employer] Patient Education 2022 [employer]. 07/08/2023 14:39:28 Hematuria, Adult Hematuria, Adult Hematuria is blood in the urine. Blood may be visible in the urine, or it may be identified with a test. This condition can be caused by infections of the bladder, urethra, kidney, or prostate. Otherpossible causes include: Kidney stones. Cancer of the urinary tract. Too much calcium in the urine. Conditions that are passed from parent to child (inherited conditions). Exercise that requires a lot of energy. Infections can usually be treated with medicine, and a kidney stone usually will pass through your urine. If neither of these is the cause of your hematuria, more tests may be needed to identify the cause of your symptoms. It is very important to tell your health care provider about any blood in your urine, even if it ispainless or the blood stops without treatment. Blood in the urine, when it happens and then stops and then happens again, can be a symptom of a very serious condition, including cancer. There is no pain in the initial stages of many urinary cancers. Follow these instructions at home: Medicines Take vfon-osx-mclgjxi and prescription medicines only as told by your health care provider. If you were prescribed an antibiotic medicine, take it as told by your health care provider. Do notstop taking the antibiotic even if you start to feel better. Eating and drinking Drink enough fluid to keep your urine pale yellow. It is recommended that you drink 3 4 quarts (2.83.8 L) a day. If you have been diagnosed with an infection, drinking cranberry juice in addition tolarge amounts of water is recommended. Avoid caffeine, tea, and carbonated beverages. These tend to irritate the bladder. Avoid alcohol because it may irritate the prostate (in males). General instructions If you have been diagnosed with a kidney stone, follow your health care provider's instructions about straining your urine to catch the stone. Empty your bladder often. Avoid holding urine for long periods of time. If you are female: ?After a bowel movement, wipe from front to back and use each piece of toilet paper only once. ?Empty your bladder before and after sex. Pay attention to any changes in your symptoms. Tell your health care provider about any changes or any new symptoms. It is up to you to get the results of any tests. Ask your health care provider, or the department that is doing the test, when your results will be ready. Keep all follow-up visits. This is important. Contact a health care provider if: You develop back pain. You have a fever or chills. You have nausea or vomiting. Your symptoms do not improve after 3 days. Your symptoms get worse. Get help right away if: You develop severe vomiting and are unable to take medicine without vomiting. You develop severe pain in your back or abdomen even though you are taking medicine. You pass a large amount of blood in your urine. You pass blood clots in your urine. You feel very weak or like you might faint. You faint. Summary Hematuria is blood in the urine. It has many possible causes. It is very important that you tell your health care provider about any blood in your urine, even ifit is painless or the blood stops without treatment. Take [id number]-[id number] and prescription medicines only as told by your health care provider. Drink enough fluid to keep your urine pale yellow. This information is not intended to replace advice given to you by your health care provider. Make sure you discuss any questions you have with your health care provider. Document Revised: 02/08/2021 Document Reviewed: 02/08/2021 [employer] Patient Education 2022 [employer]. [facility] 10-27-2023 Evaluation note Includes: Assessments for all patient encounters Findings Encounter Date [Z68.31 - Body mass index [B UT] 31.0-31.9, adult] assessment of body mass index Medical Established Patient with Kassy Que HEARD 04/19/2023 Last Documented On 3 9:11AM ; [facility] Chronic kidney disease, stage 4 Medical Established Patient with Kassy Grey WATER RECLAMATION SYSTEMS OPERATOR 04/19/2023 Last Documented On 3 9:11AM ; [facility] Essential hypertension Medical Establish ed Patient with Kassy Grey WATER RECLAMATION SYSTEMS OPERATOR 04/19/2023 Last Documented On 3 9:11AM ; [facility] Type 2 diabetes mellitus wit hout complication Medical Established Patient with Kassy Grey WATER RECLAMATION SYSTEMS OPERATOR 04/19/2023 Last Documented On 3 9:11AM ; [facility] [Z68.31 - Body mass index [B UT] 31.0-31.9, adult] assessment of body mass index Medical New Patient with Kassy Grey WATER RECLAMATION SYSTEMS OPERATOR 01/16/2023 Last Documented On 3 11:57AM ; [facility] Chronic kidney disease, stage 4 Medical New Patient with Kassy Grey WATER RECLAMATION SYSTEMS OPERATOR 01/16/2023 Last Documented On 3 11:57AM ; [facility] Diabetes Risk Test Score was eight score 01/16/2023 Medical New Patient with Kassy Grey WATER RECLAMATION SYSTEMS OPERATOR 01/16/2023 Last Documented On 3 11:57AM ; [facility] Essential hypertension Medical New Patient with Kassy Grey WATER RECLAMATION SYSTEMS OPERATOR 01/16/2023 Last Documented On 3 11:57AM ; [facility] Screening for HIV Medical New Patient with Urban Grey WATER RECLAMATION SYSTEMS OPERATOR 01/16/2023 Last Documented On 3 11:57AM ; [facility] Type 2 diabetes mellitus wit hout complication Medical New Patient with Kassy Grey WATER RECLAMATION SYSTEMS OPERATOR 01/16/2023 Last Documented On 3 11:57AM ; [facility] Visit for: screening for dig estive system disorders Medical New Patient with Kassy Grey WATER RECLAMATION SYSTEMS OPERATOR 01/16/2023 Last Documented On 3 11:57AM ; [facility] Work Phone: 1(257) 219-379910-27-2023 Progress note* Progress note Date Encounter Last Documented by 04/19/2023 Medical Established Patient Last documented on 04/22/2023; 9:11 AM, Kassy Grey WATER RECLAMATION SYSTEMS OPERATOR; [facility] Active Problems & Conditions - N18.4 - Chronic Kidney Disease Stage 4 - E11.9 - Diabetes Mellitus Type 2 Without Complication - I10 - Essential Hypertension Chief Complaint The Chief Complaint is: Pt here for A1C check. Reason For Visit Visit for: medication refills and A1C. Referred Here No prior encounters. History of Present Illness - Allergy list reviewed - Reviewed Medications - Medication list reviewed Patient reports that he has been doing well. Taking medication daily. Patient denies any hypoglycemic episodes. A1C is 6.2 in the office today Current Medication - Acetaminophen 1000 MG/100ML Intravenous Solution Once a day, 0 days, 0 refills - Alfuzosin HCl ER 10 MG Oral Tablet Extended Release 24 Hour Once a day, 0 days, 0 refills - Allopurinol 100 MG Oral Tablet twice a day, 0 days, 0 refills - Aspirin 81 MG Oral Tablet Delayed Release Once a day, 0 days, 0 refills - Carvedilol 3.125 MG Oral Tablet Twice a day, 0 days, 0 refills - Farxiga 10 MG Oral Tablet TAKE 1 TABLET BY MOUTH ONCE DAILY, 90 days, 0 refills - Fish Oil 600 MG Oral Capsule twice a day, 0 days, 0 refills - Furosemide 20 MG Oral Tablet twice a day, 0 days, 0 refills - Glimepiride 4 MG Oral Tablet twice a day, 0 days, 0 refills - Myrbetriq 50 MG Oral Tablet Extended Release 24 Hour once daily per Jose Muhammad, 0 days, 0 refills - Simvastatin 10 MG Oral Tablet One a day, 0 days, 0 refills - Vitamin D 50 MCG (2000 UT) Oral Capsule Once a day, 0 days, 0 refills Past Medical/Surgical History Reported: Medical: No previous hospitalizations. A recent examination by an foundry metallurgist 06/14/2022 no diabetic retinopathy. : Not planning to have a baby in the next 12 months. Diagnoses: Systemic hypertension. 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 Stage 4 renal. 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 Alcohol: Not using alcohol. Drug Use: Not using drugs denied by patient. Sexual: Denied sexual activity, sexual orientation Straight (not lesbian or cerda), and gender identity Male. Allergies - IV DYE, IODINE CONTAINING Reaction: Hives / Urticaria, Skin Rashes / Eruption of skin - Penicillin V Potassium Reaction: Hives / Urticaria, Skin Rashes / Eruption of skin Family History Paternal: Oncologic disorder Maternal: Systemic hypertension Sororal: Breast neoplasm Review Of Systems Systemic: No systemic symptoms. Head: No head symptoms. Otolaryngeal: No ear symptoms, no nasal symptoms, and no throat symptoms. Cardiovascular: No cardiovascular symptoms. Pulmonary: No pulmonary symptoms. Gastrointestinal: No gastrointestinal symptoms. Genitourinary: No genitourinary symptoms. Musculoskeletal: No musculoskeletal symptoms. Neurological: No neurological symptoms. Psychological: No psychological symptoms. Skin: No skin symptoms. Physical Findings - Vitals taken 04/19/2023 11:38 am BP-Sitting L116/69 mmHg Pulse Rate-Drnhdkf14 bpm Ljcaci72 in Bnkqsv763 lbs Body Mass Index31.2 kg/m2 Body Surface Area2.1 m2 Oxygen Japmhpyshw47 % Vital Signs: - Systolic blood pressure < 130 mmHg. - Diastolic Blood Pressure < 80 mmHg. General Appearance: - Awake. - Alert. - In no acute distress. Eyes: General/bilateral: Pupils: - PERRLA. Lungs: - Respiration rhythm and depth was normal. Cardiovascular: Heart Rate And Rhythm: - Normal. Heart Sounds: - Normal. Abdomen: Auscultation: - Bowel sounds were normal. Musculoskeletal System: General/bilateral: - Normal movement of all extremities. Neurological: - Oriented to time, place, and person. Psychiatric: - Expression of emotions finding was normal. Skin: - General appearance was normal. Tests Blood Analysis: Hemoglobin Studies: ValueDate Blood hemoglobin A1c 6.2%04/19/2023 Hemoglobin A1c level < 7.0%. Blood Endocrine Laboratory Tests: Value Blood glucose level by fingerstick Non-fasting 139 mg/dl Assessment - Z68.31 - Body mass index [BMI] 31.0-31.9, adult - I10 - Essential (primary) hypertension - N18.4 - Chronic kidney disease, stage 4 (severe) - E11.9 - Type 2 diabetes mellitus without complications Therapy - Patient refused flu vaccine. Discussed benefits of flu vaccine with Patient. Vaccinations - Received dose of Reported: Patient has received the COVID Vaccine Counseling/Education - Discussed nutritional needs teach healthy choices including fruits and vegetables - Patient education about a proper diet - Referred patient to a diabetes prevention program - Discussed concerns about exercise: promote physical activity Plan No changes to medication at this time. Patient to follow up in 3 months. Advance Directives - Living Will Health Reminders - Assess BMI satisfied 04/19/2023. - Eye Exam satisfied 06/14/2022. - Follow Up Plan BMI Management satisfied 04/19/2023. - MARSHALL-2 satisfied 04/19/2023. - Hemoglobin A1c satisfied 04/19/2023. - PHQ9 / PHQA satisfied 04/19/2023. User Defined 1 MARSHALL-2 score was 0 04/19/2023, MARSHALL-7 score [MARSHALL-7] Feeling nervous, anxious or on edge? + 0 pt : Not at all, [MARSHALL-7] Not being able to stop or control worrying? + 0 pt : Not at all, Patient Health Questionnaire 9-Item total score was 0 04/19/2023, [PHQ-9-1] Little interest or pleasure in doing things? + 0 pt : Not at all, [PHQ-9-2] Feeling down, depressed, or hopeless? + 0 pt : Not at all, [PHQ-9-3] Trouble falling or staying asleep or sleeping too much? + 0 pt : Not at all, [PHQ-9-4] Feeling tired or having little energy? + 0 pt : Not at all, [PHQ-9-5] Poor appetite or overeating? + 0 pt : Not at all, [PHQ-9-6] Feeling bad about yourself-or that you are a failure + 0 pt : Not at all, [PHQ-9-7] Trouble concentrating on things such as reading the newspaper + 0 pt : Not at all, [PHQ-9-8] Moving or speaking so slowly that other people have noticed. + 0 pt : Not at all, and [PHQ-9-9] Thoughts that you would be better off or hurting yourself? + 0 pt : Not at all. Health [facility]10-27-2023 Instructions Includes: Instructions for all patient encounters Education and Decision Aids were provided during visit for: Discussed nutritional needs teach healthy choices including fruits and vegetables Last Documented On 3 11:42AM ; [facility] Patient education about a pr oper diet Last Documented On 3 11:42AM ; [facility] Discussed concerns about exe rcise : promote physical activity Last Documented On 3 11:42AM ; [facility] Referred patient to a diabet es prevention program Last Documented On 3 11:53AM ; [facility] Discussed nutritional needs teach healthy choices including fruits and vegetables Last Documented On 3 1:20PM ; [facility] Patient education about a pr oper diet Last Documented On 3 1:20PM ; [facility] Discussed concerns about exe rcise : promote physical activity Last Documented On 3 1:20PM ; [facility] Referred Patient to a Diabet es Self-Management Program Last Documented On 3 1:43PM ; [facility] Work Phone: 1([phone]) 272-393209-19-2023 Evaluation note* Encounter Date Diagnosis Assessment Notes Treatment Notes Treatment Clinical Notes Feb, Chronic kidney disease, stage IV (severe) (ICD-10 - N18.4) 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 Serum creatinine is ats baseline is 2.0-2.2 mg/dl .SCr was up to 2.9 mg/dl while on ACEI. Pro/Cr < 500 mg/g. No compelling reason to add ACEI. He is alreading on farxiga Blood pressure is well controlled Volume status well controlled with the current dose of Lasix. DM is well controlled Avoid NSAIDs. continue good hydration I will follow-up with the patient in 4 months with lab work and urine test as above Feb, Diabetes mellitus type 2 in nonobese (ICD-10 - E11.9) Patient has been diabetic for 30 years. Diabetes well controlled.On SLTG-2 inhibitor Patient has mild proteinuria. follows with his PCP for DM management Feb, Primary hypertension (ICD-10 - I10) Blood pressure is well controlled. I asked the patient to monitor his blood pressure at home Feb, Hyperuricemia (ICD-1 0 - E79.0) Patient is on allopurinol . Uric acid is within normal limit Feb, Hyperlipidemia, unspecified hyperlipidemia type (ICD-10 - E78.5) LDL goal is below 100. Patient is working with his PCP for this. On statin Feb, BPH loc w/o ur obs/LUTS (ICD-10 - N40.0) continue Alfluzosin Feb, Hyperkalemia (ICD-10 - E87.5) resolved with kayexalate and stopping ACEI. I asked the patient to follow a low potassium diet. Feb, Anemia, unspecified type (ICD-10 - D64.9) Hemoglobin is 13.5 g/dL. Patient has adequate iron, VB12 and folate No need for LUCIA Feb, Vitamin D deficiency (ICD-10 - E55.9) 25 OH VD is WNL. Continue OTC VD 2000 U DAILY [employer] Other 09-15-2023 History general Narrative - Reported Includes: Medical History in patient's chart Description Last Updated A recent examination by an o phthalmologist 03/08/2023 no diabetic retinopathy 07/23/2023 Last Documented On 4 8:38AM ; [facility] Had seed implant and radiation prostate. Stage 4 renal 01/16/2023 Last Documented On 3 11:57AM ; [facility] History of diabetes mellitus 01/16/2023 Last Documented On 3 11:57AM ; [facility] History of systemic hypertension 023 Last Documented On 3 11:57AM ; [facility] No previous hospitalizations 01/16/2023 Last Documented On 3 11:57AM ; [facility] Not planning to have a baby in the next 12 months 01/16/2023 Last Documented On 3 11:57AM ; [facility] Recent immunization for flu 01/16/2023 Last Documented On 3 11:57AM ; [facility] Work Phone: 1([phone]) 538-119509-15-2023 History general Narrative - Reported Includes: Medical History in patient's chart Description Last Updated A recent examination by an o phthalmologist 03/08/2023 no diabetic retinopathy 07/23/2023 Last Documented On 4 8:38AM ; [facility] Had seed implant and radiation prostate. Stage 4 renal 01/16/2023 Last Documented On 3 11:57AM ; [facility] History of diabetes mellitus 01/16/2023 Last Documented On 3 11:57AM ; [facility] History of systemic hypertension 023 Last Documented On 3 11:57AM ; [facility] No previous hospitalizations 01/16/2023 Last Documented On 3 11:57AM ; [facility] Not planning to have a baby in the next 12 months 01/16/2023 Last Documented On 3 11:57AM ; [facility] Recent immunization for flu 01/16/2023 Last Documented On 3 11:57AM ; [facility] Work Phone: [phone]) [phone] Instructions Includes: Instructions for all patient encounters Education and Decision Aids were provided during visit for: Discussed nutritional needs teach healthy choices including fruits and vegetables Last Documented On 3 1:20PM ; [facility] Patient education about a pr oper diet Last Documented On 3 1:20PM ; [facility] Discussed concerns about exe rcise : promote physical activity Last Documented On 3 1:20PM ; [facility] Referred Patient to a Diabet es Self-Management Program Last Documented On 3 1:43PM ; [facility] Work Phone: [phone]) [phone] Evaluation note Includes: Assessments for all patient encounters Findings Encounter Date [Z68.31 - Body mass index [B UT] 31.0-31.9, adult] assessment of body mass index Medical New Patient with Kassy Grey CNP 01/16/2023 Last Documented On 3 11:57AM ; [facility] Chronic kidney disease, stage 4 Medical New Patient with Kassy Grey CNP 01/16/2023 Last Documented On 3 11:57AM ; [facility] Diabetes Risk Test Score was eight score 01/16/2023 Medical New Patient with Kassy Grey CNP 01/16/2023 Last Documented On 3 11:57AM ; [facility] Essential hypertension Medical New Patient with Kassy Grey WATER RECLAMATION SYSTEMS OPERATOR 01/16/2023 Last Documented On 3 11:57AM ; [facility] Screening for HIV Medical New Patient with Urban Grey WATER RECLAMATION SYSTEMS OPERATOR 01/16/2023 Last Documented On 3 11:57AM ; [facility] Type 2 diabetes mellitus wit hout complication Medical New Patient with Kassy Grey WATER RECLAMATION SYSTEMS OPERATOR 01/16/2023 Last Documented On 3 11:57AM ; [facility] Visit for: screening for dig estive system disorders Medical New Patient with Kassy Grey WATER RECLAMATION SYSTEMS OPERATOR 01/16/2023 Last Documented On 3 11:57AM ; [facility] Work Phone: [phone]) [phone] Progress note* Progress note Date Encounter Last Documented by 01/16/2023 Medical New Patient Last irene santacruz on 01/17/2023; 11:57 AM, Kassy Grey WATER RECLAMATION SYSTEMS OPERATOR; [facility] Active Problems & Conditions - N18.4 - Chronic Kidney Disease Stage 4 - E11.9 - Diabetes Mellitus Type 2 Without Complication - I10 - Essential Hypertension Chief Complaint The Chief Complaint is: Here to establish care. Would like to get his Farxiga here at our pharmacy. Reason For Visit Visit for: to establish care/ medication refills. Referred Here Not referred by urgent care clinic and not the emergency room. No prior encounters. - Data to be reviewed: no clinical lab tests History of Present Illness - Allergy list reviewed - Reviewed Medications - Medication list reviewed Patient would like a prescription for farxiga. Patient is unable now to get the Farxiga at [facility] as [facility] . Patient reports that he was told that he could get that medication from [facility] pharmacy for less expense. Patient is currently taking farxiga. Patient has Stage 4 kidney disease. Patient takes blood sugar daily in the morning has been running around 120's- 130's. Patient see's Dr. Rubio for eyes. See's urologist for urinary concerns. See's podiatry every 3 months- Dr. Martino, they perform nail clipping and diabetic exam Current Medication - Acetaminophen 1000 MG/100ML Intravenous Solution Once a day, 0 days, 0 refills - Alfuzosin HCl ER 10 MG Oral Tablet Extended Release 24 Hour Once a day, 0 days, 0 refills - Allopurinol 100 MG Oral Tablet twice a day, 0 days, 0 refills - Aspirin 81 MG Oral Tablet Delayed Release Once a day, 0 days, 0 refills - Carvedilol 3.125 MG Oral Tablet Twice a day, 0 days, 0 refills - Fish Oil 600 MG Oral Capsule twice a day, 0 days, 0 refills - Furosemide 20 MG Oral Tablet twice a day, 0 days, 0 refills - Glimepiride 4 MG Oral Tablet twice a day, 0 days, 0 refills - Simvastatin 10 MG Oral Tablet One a day, 0 days, 0 refills - Vitamin D 50 MCG (2000 UT) Oral Capsule Once a day, 0 days, 0 refills Past Medical/Surgical History Reported: Medical: No previous hospitalizations. A recent examination by an foundry metallurgist 06/14/2022 no diabetic retinopathy. Immunization History: Recent immunization for flu. : Not planning to have a baby in the next 12 months. Diagnoses: Systemic hypertension. 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 Stage 4 renal. 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 Behavioral: Not a current tobacco user. Tobacco use: Not using electronic cigarettes/vaping. Drug Use: Not using drugs denied by patient. Sexual: Denied sexual activity, sexual orientation Straight (not lesbian or cerda), and gender identity Male. Allergies - IV DYE, IODINE CONTAINING Reaction: Hives / Urticaria, Skin Rashes / Eruption of skin - Penicillin V Potassium Reaction: Hives / Urticaria, Skin Rashes / Eruption of skin Family History Paternal: Oncologic disorder Maternal: Systemic hypertension Sororal: Breast neoplasm Review Of Systems Systemic: No systemic symptoms. Head: No head symptoms. Otolaryngeal: No ear symptoms, no nasal symptoms, and no throat symptoms. Cardiovascular: No cardiovascular symptoms. Pulmonary: No pulmonary symptoms. Gastrointestinal: No gastrointestinal symptoms. Genitourinary: No genitourinary symptoms. Musculoskeletal: No musculoskeletal symptoms. Neurological: No neurological symptoms. Psychological: No psychological symptoms. Skin: No skin symptoms. Physical Findings - Vitals taken 01/16/2023 01:17 pm BP-Sitting L118/72 mmHg BP Cuff SizeRegular Pulse Rate-Bhmfmtk09 bpm Respiration Rate16 per min Temp-Ltdvcbje45.8 F Gzphjn98 in Jsxapn516 lbs Body Mass Index31.7 kg/m2 Body Surface Area2.1 m2 Oxygen Ruqhwugyyj80 % Vital Signs: - Systolic blood pressure < 130 mmHg. - Diastolic Blood Pressure < 80 mmHg. General Appearance: - Awake. - Alert. - In no acute distress. Eyes: General/bilateral: Pupils: - PERRLA. Ears: General/bilateral: Tympanic Membrane: - Examined. - Not bulging. - No retraction of tympanic membrane. - Not erythematous. - Not opacified. Right Ear: - Examined. Left Ear: - Examined. Nose: General/bilateral: Discharge: - No nasal discharge. Pharynx: Oropharynx: - Normal. Lungs: - Respiration rhythm and depth was normal. - Clear to auscultation. Cardiovascular: Heart Rate And Rhythm: - Normal. Heart Sounds: - Normal. Abdomen: Visual Inspection: - Abdomen was normal on visual inspection. Musculoskeletal System: General/bilateral: - Abnormal movement of all extremities. Foot: General/bilateral: - Abnormal 10-g monofilament exam of right foot. - Abnormal 10-g monofilament exam of left foot. Neurological: - Oriented to time, place, and person. Psychiatric: - Expression of emotions finding was normal. Skin: - General appearance was normal. Physician's Services: - Diabetic Foot Exam Normal Tests Blood Analysis: Hemoglobin Studies: ValueDate Blood hemoglobin A1c 6.5%01/16/2023 Hemoglobin A1c level < 7.0%. Laboratory-based Chemistry: Immunology Studies: HIV test was negative. Urine Tests: Value Urine microalbumin dipstick test was 10 + Urine albumin/creatinine by test strip <30. Microbiology: Microbiology Antibody Identification: In House Screen Hep C was negative 01/16/2023. Assessment - Z11.4 - Encounter for screening for human immunodeficiency virus [HIV] - Z13.818 - Encounter for screening for other digestive system disorders - Z68.31 - Body mass index [BMI] 31.0-31.9, adult - Z13.1 - Encounter for screening for diabetes mellitus - I10 - Essential (primary) hypertension - N18.4 - Chronic kidney disease, stage 4 (severe) - E11.9 - Type 2 diabetes mellitus without complications Therapy - SBIRT Full Screen Neg. Vaccinations - Received dose of Reported: Patient has received the COVID Vaccine Counseling/Education - Discussed nutritional needs teach healthy choices including fruits and vegetables - Patient education about a proper diet - Referred Patient to a Diabetes Self-Management Program - Discussed concerns about exercise: promote physical activity Plan StartCited- Type 2 diabetes mellitus without complications Farxiga 10 MG tablet take 1 tablet by mouth daily, 90 days, 0 refills EndCited Will prescribe the Farxiga for diabetes management. Patient to follow up in 3 months for repeat A1C. Advance Directives - Living Will Health Reminders - Assess BMI satisfied 01/16/2023. - Assess Tobacco Use satisfied 01/16/2023. - Diabetes Risk Screening Needed satisfied 01/16/2023. - Eye Exam satisfied 06/14/2022. - Follow Up Plan BMI Management satisfied 01/16/2023. - Foot Exam satisfied 01/16/2023. - Hemoglobin A1c satisfied 01/16/2023. - PHQ9 / PHQA satisfied 01/16/2023. - SBIRT satisfied 01/16/2023. - Urine Protein Screening (microalbumin) satisfied 01/16/2023. User Defined 1 He has not had 5 or more drinks in a day within the past year. Yes (1 point) [Pre-DM]: Yes, patient has been diagnosed with high blood pressure, Yes (1 point) [Pre-DM]: Yes, mother, father, sister or brother has DM, No (0 points) [Pre-DM]: Patient has not been diagnosed with gestational diabetes or given to a baby weighing 9 pounds or more, and Yes (0 point) [Pre-DM]: Yes, physically active. No misuse of prescription only drugs and not illicit. Man (1 point) [Pre-DM]. PHQ-9: total score was 0 01/16/2023, [PHQ-9-1] Little interest or pleasure in doing things? + 0 pt : Not at all, [PHQ-9-2] Feeling down, depressed, or hopeless? + 0 pt : Not at all, [PHQ-9-3] Trouble falling or staying asleep or sleeping too much? + 0 pt : Not at all, [PHQ-9-4] Feeling tired or having little energy? + 0 pt : Not at all, [PHQ-9-5] Poor appetite or overeating? + 0 pt : Not at all, [PHQ-9-6] Feeling bad about yourself-or that you are a failure + 0 pt : Not at all, [PHQ-9-7] Trouble concentrating on things such as reading the newspaper + 0 pt : Not at all, [PHQ-9-8] Moving or speaking so slowly that other people have noticed. + 0 pt : Not at all, [PHQ-9-9] Thoughts that you would be better off or hurting yourself? + 0 pt : Not at all, and 60 years or older (3 points) [Pre-DM]. Bottom of Document [facility]04-11-2023 Hospital Discharge instructions Patient Education 10/02/2022 14:15:25 [facility] - Cystoscopy Discharge Instructions (CUSTOM) Cystoscopy Voiding after the procedure: there may be some pain, burning, urgency, frequency and blood tinged urine following the procedure. These symptoms usually resolve within 2-5 days. Drink the amount of fluid it takes to keep the urine pink to yellow or clear in color. Drinking enough water and fluids will help to ease any discomfort after your procedure. If you are having problems that seem out of the ordinary, please call. If unable to contact your physician and you feel it is an emergency, go to the nearest emergency room or call 911 Diet you may resume your normal diet. Activity you may resume your normal activities Call if you have a fever over 100 degrees. Follow Up Care 09/10/2022 09:50:17 With:Jose MUHAMMAD Address: [facility] [address] [place] [address]- [facility] (1) When:04/03/2023 14:15:13 [facility]03-17-2023 Hospital Discharge instructions Patient Education 09/07/2022 12:37:29 Benign Prostatic Hyperplasia Benign Prostatic Hyperplasia Benign prostatic hyperplasia (BPH) is an enlarged prostate gland that is caused by the normal agingprocess and not by cancer. The prostate is a walnut-sized gland that is involved in the production of semen. It is located in front of the rectum and below the bladder. The bladder stores urine and the urethra is the tube that carries the urine out of the body. The prostate may get bigger as a man gets older. An enlarged prostate can press on the urethra. This can make it harder to pass urine. The build-up of urine in the bladder can cause infection. Back pressure and infection may progress to bladder damage and kidney (renal) failure. What are the causes? This condition is part of a normal aging process. However, not all men develop problems from this condition. If the prostate enlarges away from the urethra, urine flow will not be blocked. If it enlarges toward the urethra and compresses it, there will be problems passing urine. What increases the risk? This condition is more likely to develop in men over the age of 50 years. What are the signs or symptoms? Symptoms of this condition include: Getting up often during the night to urinate. Needing to urinate frequently during the day. Difficulty starting urine flow. Decrease in size and strength of your urine stream. Leaking (dribbling) after urinating. Inability to pass urine. This needs immediate treatment. Inability to completely empty your bladder. Pain when you pass urine. This is more common if there is also an infection. Urinary tract infection (UTI). How is this diagnosed? This condition is diagnosed based on your medical history, a physical exam, and your symptoms. Tests will also be done, such as: A post-void bladder scan. This measures any amount of urine that may remain in your bladder after you finish urinating. A digital rectal exam. In a rectal exam, your health care provider checks your prostate by putting a lubricated, gloved finger into your rectum to feel the back of your prostate gland. This exam detects the size of your gland and any abnormal lumps or growths. An exam of your urine (urinalysis). A prostate specific antigen (PSA) screening. This is a blood test used to screen for prostate cancer. An ultrasound. This test uses sound waves to electronically produce a picture of your prostate gland. Your health care provider may refer you to a specialist in kidney and prostate diseases (urologist). How is this treated? Once symptoms begin, your health care provider will monitor your condition (active surveillance or watchful waiting). Treatment for this condition will depend on the severity of your condition. Treatment may include: Observation and yearly exams. This may be the only treatment needed if your condition and symptoms are mild. Medicines to relieve your symptoms, including: ?Medicines to shrink the prostate. ?Medicines to relax the muscle of the prostate. Surgery in severe cases. Surgery may include: ?Prostatectomy. In this procedure, the prostate tissue is removed completely through an open incision or with a laparoscope or robotics. ?Transurethral resection of the prostate (TURP). In this procedure, a tool is inserted through the opening at the tip of the penis (urethra). It is used to cut away tissue of the inner core of the prostate. The pieces are removed through the same opening of the penis. This removes the blockage. ?Transurethral incision (TUIP). In this procedure, small cuts are made in the prostate. This lessens the prostate's pressure on the urethra. ?Transurethral microwave thermotherapy (TUMT). This procedure uses microwaves to create heat. The heat destroys and removes a small amount of prostate tissue. ?Transurethral needle ablation (TUNA). This procedure uses radio frequencies to destroy and remove a small amount of prostate tissue. ?Interstitial laser coagulation (ILC). This procedure uses a laser to destroy and remove a small amount of prostate tissue. ?Transurethral electrovaporization (TUVP). This procedure uses electrodes to destroy and remove a small amount of prostate tissue. ?Prostatic urethral lift. This procedure inserts an implant to push the lobes of the prostate away from the urethra. Follow these instructions at home: Take jrls-tio-gapuytt and prescription medicines only as told by your health care provider. Monitor your symptoms for any changes. Contact your health care provider with any changes. Avoid drinking large amounts of liquid before going to bed or out in public. Avoid or reduce how much caffeine or alcohol you drink. Give yourself time when you urinate. Keep all follow-up visits as told by your health care provider. This is important. Contact a health care provider if: You have unexplained back pain. Your symptoms do not get better with treatment. You develop side effects from the medicine you are taking. Your urine becomes very dark or has a bad smell. Your lower abdomen becomes distended and you have trouble passing your urine. Get help right away if: You have a fever or chills. You suddenly cannot urinate. You feel lightheaded, or very dizzy, or you faint. There are large amounts of blood or clots in the urine. Your urinary problems become hard to manage. You develop moderate to severe low back or flank pain. The flank is the side of your body between the ribs and the hip. These symptoms may represent a serious problem that is an emergency. Do not wait to see if the symptoms will go away. Get medical help right away. Call your local emergency services (911 in the [place] Do not drive yourself to the hospital. Summary Benign prostatic hyperplasia (BPH) is an enlarged prostate that is caused by the normal aging process and not by cancer. An enlarged prostate can press on the urethra. This can make it hard to pass urine. This condition is part of a normal aging process and is more likely to develop in men over the age of 50 years. Get help right away if you suddenly cannot urinate. This information is not intended to replace advice given to you by your health care provider. Make sure you discuss any questions you have with your health care provider. Document Released: 06/10/2006 Document Revised: 05/05/2019 Document Reviewed: 07/15/2017 [employer] Patient Education 2020 [employer]. 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 Serum creatinine is 2.0 mg/dl . last visit was 2.9 mg/dl while on ACEI. Pro/Cr 111 mg/g. No compelling reason to add ACEI. He is alreading on farxiga Blood pressure is well controlled Volume status well controlled with the current dose of Lasix. Avoid NSAIDs I will follow-up with the patient in 4 months with lab work and urine test as above Jun, Diabetes mellitus type 2 in nonobese (ICD-10 - E11.9) Patient has been diabetic for 30 years. Diabetes well controlled. Jun, Primary hypertension (ICD-10 - I10) Blood pressure is well controlled. I asked the patient to monitor his blood pressure at home Jun, Hyperuricemia (ICD-1 0 - E79.0) Patient is on allopurinol . Uric acid is within normal limit Jun, Hyperlipidemia, unspecified hyperlipidemia type (ICD-10 - E78.5) LDL goal is below 100. Patient is working with his PCP for this. On statin Jun, BPH loc w/o ur obs/LUTS (ICD-10 - N40.0) Jun, Hyperkalemia (ICD-10 - E87.5) resolved with kayexalate and stopping ACEI. I asked the patient to follow a low potassium diet. Jun, Anemia, unspecified type (ICD-10 - D64.9) Hemoglobin is 12.9 g/dL. Patient has adequate iron, VB12 and folate Jun, Vitamin D deficiency (ICD-10 - E55.9) I asked the patient to start OTC VD 2000 u DAILY [employer] Other 12-22-2022 History general Narrative - Reported Includes: Medical History in patient's chart Description Last Updated A recent examination by an o phthalmologist 06/14/2022 no diabetic retinopathy 01/17/2023 Last Documented On 3 11:57AM ; [facility] Had seed implant and radiation prostate. Stage 4 renal 01/16/2023 Last Documented On 3 11:57AM ; [facility] History of diabetes mellitus 01/16/2023 Last Documented On 3 11:57AM ; [facility] History of systemic hypertension 023 Last Documented On 3 11:57AM ; [facility] No previous hospitalizations 01/16/2023 Last Documented On 3 11:57AM ; [facility] Not planning to have a baby in the next 12 months 01/16/2023 Last Documented On 3 11:57AM ; [facility] Recent immunization for flu 01/16/2023 Last Documented On 3 11:57AM ; [facility] Work Phone: 1(131) 570-438512-22-2022 History general Narrative - Reported Includes: Medical History in patient's chart Description Last Updated A recent examination by an o phthalmologist 06/14/2022 no diabetic retinopathy 01/17/2023 Last Documented On 3 11:57AM ; [facility] Had seed implant and radiation prostate. Stage 4 renal 01/16/2023 Last Documented On 3 11:57AM ; [facility] History of diabetes mellitus 01/16/2023 Last Documented On 3 11:57AM ; [facility] History of systemic hypertension 023 Last Documented On 3 11:57AM ; [facility] No previous hospitalizations 01/16/2023 Last Documented On 3 11:57AM ; [facility] Not planning to have a baby in the next 12 months 01/16/2023 Last Documented On 3 11:57AM ; [facility] Recent immunization for flu 01/16/2023 Last Documented On 3 11:57AM ; [facility] Work Phone: 1(391) 545-635210-21-2022 Evaluation note* Encounter Date Diagnosis Assessment Notes Treatment Notes Treatment Clinical Notes Mar, Hyperkalemia (ICD-10 - E87.5) [facility] Other Evaluation + Plan note Future Appointments Appointment Date:09/25/2022 04:00:00 PM Scheduled Provider: Location:[facility] Appointment Type:Urology CALL PAT FT Appointment Date:10/02/2022 02:00:00 PM Scheduled Provider: Location:[facility] Appointment Type:Urology FT [facility] evaluation + Plan note Future Appointments Appointment Date:09/25/2022 04:00:00 PM Scheduled Provider: Location:[facility] Appointment Type:Urology CALL PAT FT Appointment Date:10/02/2022 02:00:00 PM Scheduled Provider: Location:[facility] Appointment Type:Urology FT Diagnostic Tests Pending * [facility]rine [facility] Future App[facility]ments Appointment Date:04/01/2023 01:00:00 PM Scheduled Provider:Jose MUHAMMAD MD [facility] Future Appointments Appointment Date:10/04/2023 11:00:00 AM Scheduled Provider:Jose MUHAMMAD MD Location[facility] Appointment Type:URO Office Visit [facility] Evaluation + Plan note Future Appointments Appointment Date:03/30/2024 01:45:00 PM Scheduled Provider:Jose MUHAMMAD MD Location[facility] Appointment Type:URO Office Visit [facility] evaluation + Plan note Future Appointments Appointment Date:03/30/2024 01:45:00 PM Scheduled Provider:Jose MUHAMMAD MD Location[facility] Appointment Type:URO Office Visit Diagnostic Tests Pending * Urine Culture 09/24/23 * Urine Cytology ([facility]) 09[facility]24/23 [facility] Future Appointments Appointment Date:12/20/2023 11:00:00 AM Scheduled Provider:Jose MUHAMMAD MD Location[facility] Appointment Type:URO Office Visit Appointment Date:03/30/2024 01:45:00 PM Scheduled Provider:Jose MUHAMMAD MD Location:[facility] Appointment Type:URO Office Visit [facility] Evaluation + Plan note Future Appointments Appointment Date:12/20/2023 11:00:00 AM Scheduled Provider:Jose MUHAMMAD MD Location:[facility] Appointment Type:URO Office Visit Appointment Date:03/30/2024 01:45:00 PM Scheduled Provider:Jose MUHAMMAD MD Location:[facility] Appointment Type:URO Office Visit Diagnostic Tests Pending * Urine Culture [facility] [employer] Other Evaluation note* Diagnosis Onset Date Resolution Status Anemia acute BPH loc w/o ur obs/LUTS acut e Chronic kidney disease, stage IV (severe) acute Diabetic nephropathy associa noam with type 2 diabetes mellitus acute Hyperkalemia acute Hyperparathyroidism acute Hypertensive nephropathy acu te Hyperuricemia acute Vitamin D deficiency acute [facility] Work Phone: [facility] general Narrative - Reported* Type Description Date Medical History TYPE II DIABETES MELLITUS Medical History HYPERLIPIDEMIA Medical History HYPERTENSION Medical History CHRONIC KIDNEY DISEASE STAGE 3 Medical History PROSTATE CANCER Medical History BPH 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 Surgical History CARDIAC BYPASS 12/1983 Surgical History APPENDECTOMY Surgical History TONSILECTOMY Surgical History HERNIA REPAIR Surgical History SKIN CANCER BASAL CELL CARCINOM A Surgical History COLONOSCOPY 2019 Surgical History ABDOMINAL WALLL ABCESS 2019 Hospitalization History SEE ABOVE [employer] Other history general Narrative - Reported* Type Description Date Medical History TYPE II DIABETES MELLITUS Medical History HYPERLIPIDEMIA Medical History HYPERTENSION Medical History CHRONIC KIDNEY DISEASE STAGE 3 Medical History PROSTATE CANCER Medical History BPH 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 Medical History URINARY TRACT INFECTION Surgical History CARDIAC BYPASS 12/1983 Surgical History APPENDECTOMY Surgical History TONSILECTOMY Surgical History HERNIA REPAIR Surgical History SKIN CANCER BASAL CELL CARCINOM A Surgical History COLONOSCOPY 2019 Surgical History ABDOMINAL WALL ABCESS 2019 Hospitalization History SEE ABOVE [employer] Other History of Present illness Narrative History of Present Illness not supported for this document type No History of Present Illness [facility] Work Phone: Hospital course Narrative No data available for this section [facility] Hospital Discharge instructions No data available for this section [facility] Narrative Includes: Evaluations & Outcomes for active Goals No Outcomes [facility] Work Phone: Progress note No data available for this section [facility] reason for referral (narrative)No Reason for Referral [facility] Work Phone: Review of systems Narrative - Reported Review of Systems not supported for this document type No Review of Systems [facility] Work Phone: Summary Purpose Family History No Family History Records Found Description Last Updated Maternal history of systemic hypertensio n 01/16/2023 Last Documented On 3 11:57AM ; [facility] Paternal history of oncologic disorder 0 01/16/2023 [place] history of breast neoplasm 01/16 Description Last Updated Maternal history of systemic hypertensio n 01/16/2023 Last Documented On 3 11:57AM ; [facility] Paternal history of oncologic disorder 0 01/16/2023 [place] history of breast neoplasm 01/16 Description Last Updated Maternal history of systemic hypertensio n 01/16/2023 Last Documented On 3 11:57AM ; [facility] Paternal history of oncologic disorder 0 01/16/2023 [place] history of breast neoplasm 01/16 Description Last Updated Maternal history of systemic hypertensio n 01/16/2023 Last Documented On 3 11:57AM ; [facility] Paternal history of oncologic disorder 0 01/16/2023 [place] history of breast neoplasm 01/16 Relationship Condition Age at Onset Recorded Date/T reny father Family history of colon cancer Unknown Malignant neoplasm Unknown Unknown Not Specified Heart disease Unknown Hypertension Unknown Advance Directives No Advanced Directives Records Found Directive Pat Aware Third Republican Effective Date Reviewed Sta tus Living Will Yes 01/16/2023 Support ed By Healthcare Will Note: Patient stated he has a living will at home and will bring in at next visit. Advance Directive Response Recorded Date/ Time Advance Directives Yes July 26, 2023 9:37am Physical Exam Physical Exam not supported for this document type No Physical Exam Recorded Physical Exam not supported for this document type No Physical Exam Recorded Physical Exam not supported for this document type No Physical Exam Recorded Physical Exam not supported for this document type No Physical Exam Recorded Chief Complaint and Reason for Visit Chief Complaint RENAL 4 month f/u Reason for Visit Anemia BPH loc w/o ur obs/LUTS Chronic kidney disease, stage IV (severe) Diabetic nephropathy associated with type 2 diabetes mellitus Hyperkalemia Hyperparathyroidism Hypertensive nephropathy Hyperuricemia Vitamin D deficiency Additional Source Comments (unrecognized sect ion and content) No Status Records FoundNo Status Records FoundNo Status Records FoundNo Status Records FoundNo Status Records FoundNo Status Records FoundNo Status Records Found INFORMATION SOURCE (unrecogn ized section and content) DATE CREATED AUTHOR 10/10/2021 [facility] DATE CREATED AUTHOR AUTHOR'S ORGANIZ ATION 01/26/2023 [facility] DATE CREATED AUTHOR AUTHOR'S ORGANIZ ATION 10/30/2023 [facility] DATE CREATED AUTHOR AUTHOR'S ORGANIZ ATION 11/24/2023 [facility] DATE CREATED AUTHOR AUTHOR'S ORGANIZ ATION 12/11/2023 [facility] DATE CREATED AUTHOR AUTHOR'S ORGANIZ ATION 12/12/2023 [facility] REASON FOR VISIT (unrecogniz ed section and content) ClinicalRENAL 3 month Follow upKIDNEY / BALDDER ECHO USRENAL 4 month Follow upRENAL 4 month Follow up Patient Care team informatio n (unrecognized section and content) Team Status: Active Member Role Status Dates Jena Nix MD Primary Care Provider Active Team Status: Inactive Member Role Status Dates Jena Nix MD Primary Care Provider Active S tart: November 19, 2023 End: November 19, 2023 Braulio Linares MD Attending Provider Active Star t: November 19, 2023 End: November 19, 2023 Goals (unrecognized section and content) Goals may be documented in a n alternate section FOR RECORDS PERTAINING TO PATIENTS WHO ARE OR HAVE BEEN ENROLLED IN A CHEMICAL DEPENDENCY/SUBSTANCEABUSE PROGRAM, SOME INFORMATION MAY BE OMITTED. This clinical summary was aggregated from multiple sources. Caution should be exercised in using it in the provision of clinical care. This summary normalizes information from multiple sources, and as a consequence, information in this document may materially change the coding, format and clinical context of patient data. In addition, data may be omitted in some cases. CLINICAL DECISIONS SHOULD BE BASED ON THE PRIMARY CLINICAL RECORDS. [facility] [email or web address] [facility]. provides no warranty or guarantee of the accuracy or completeness of information in this document.
[2023-12-12 08:12] LABS: Glucometer 136 mg/dL (74-106)
[2023-12-12] MEDS: LACTATED RINGER'S SOLUTION 1,000 ML 50 ML IV (08:16)
[2023-12-12] MEDS: CIPROFLOXACIN IN 5 % DEXTROSE 400 MG/200 ML PIGGYBACK 200 MG IV (09:56)
--- NOTE | 2023-12-12 11:19 | PM.URSON ---
Urology Surgery Operative Note Operative Note Procedure Date: 12/12/23 Time Out Performed: yes Pre-op Diagnosis: Bladder tumors Post-op Diagnosis: same as pre-op Procedures performed: 1. Cystoscopy. 2. Transurethral resection of bladder tumorsGreater than 6 cm. 3. Bilateral ureteroscopy. 4. Placement of 6 [place] variable length left ureteral stent Anesthesia: ALVINO Primary Surgeon: Jose Muhammad Complications: None Estimated blood loss (mL): 5 Findings: Sheets of papillary tumors over the mid and left-sided trigone. Papillary tumor patches going up the left wall and left bladder neck area. Specimens: Bladder tumors Drains: 1. The 6 [place] variable length left ureteral stent. 2. Love catheter to bladder Indications for Procedures: This gentleman Has had brachytherapy for prostate cancer in the distant past. He developed gross hematuria and endoscopy revealed bladder tumors. His left UOs seem to be covered with tumors. He now presents for this TURBT, bilateral ureteroscopy's and possible stent placement. He has signed an informed consent after all risks were explained. Detailed description of Procedure: The patient was brought to the operating room and placed on the operating room table in the supine position. SCDs were placed on the lower extremities and turned on and functioning during the entire case. Timeout was done by all parties in the room. We all agreed upon the patient's identification and the planned procedures for this patient. Genn. anesthesia was then administered. The patient was then repositioned into the modified dorsal lithotomy position. All pressure points were satisfactorily padded. Genitalia were sterilely prepped and draped in usual fashion.I started by passing a 26 [place] Olympus resectoscope with a standard bipolar loop electrode per urethra and into the bladder. 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 There were tumors going up the left wall and near the left bladder neck. I started on the mid trigone and uniformly resected these tumors to the area of the left UO. After shaving through all the tumors I did not find the ureter. I then continued resecting tumors along the left lateral wall and near the bladder neck. Greater than 6 cm of tumor was resected. The Ilich evacuator was used to get all the tumor pieces out and these were sent for permanent sections. The entire resection bed was coagulated with the button electrode.The cystoscope was passed into the bladder and a wire was passed up the left ureter. The Scope was removed and I then passed a semirigid ureteroscope over the wire and up the left ureter. There was no evidence of tumor ascending up the left ureter. The scope was removed. The cystoscope was passed over the wire and into the bladder and I then slid a 6 [place] variable length ureteral stent over the wire up to the left kidney. The wire was removed and there were good curls in the kidney and in the bladder.Since we could not do retrogrades due to his contrast allergy I elected to do right ureteroscopy also. A wire was passed up the right ureter and similarly the ureteroscope went up and this was then removed after finding no evidence of tumors up the right ureter. The wire was also removed.The resectoscope was passed back in the bladder and more coagulation was done over the resection beds. All tissue was removed and sent for pathology. Upon completion, there was no evidence of any tumor remaining and no bleeding was noted. The scope was then removed. I then placed a 20 [place] coud? catheter in the bladder and 10 cc of fluid was placed in the balloon. It drained clear. The anesthetic was then reversed and the patient was then transferred to a rkopperl bed and wheeled to PACU in stable condition.
[2023-12-12 12:31] LABS: Glucometer 156 mg/dL (74-106)
--- NOTE | 2023-12-12 13:01 | PC.NURSE ---
Patient states he doesn't really have any pain and states his belly just feels funny. Wants to stay and see if is calms down before he gets in a car. Still sleepy from anesthesia.
[2023-12-12] MEDS: ACETAMINOPHEN 325 MG TABLET 650 MG PO (14:00)
== END 2023-12-12 14:38 | disposition home or self-care (01) ==
PROVIDERS: PCP Family Medicine; Visit Provider Urology
PROC: (CPT 52240; principal; 2023-12-12 09:00)
PROC: (CPT 52240; 2023-12-12 09:00)
DX: C67.0 Malignant neoplasm of trigone of bladder (principal); C67.2 Malignant neoplasm of lateral wall of bladder; C67.5 Malignant neoplasm of bladder neck; Z95.1 Presence of aortocoronary bypass graft; E78.5 Hyperlipidemia, unspecified; I10 Essential (primary) hypertension; I25.10 Atherosclerotic heart disease of native coronary artery without angina pectoris; E11.9 Type 2 diabetes mellitus without complications; N40.0 Benign prostatic hyperplasia without lower urinary tract symptoms; M10.9 Gout, unspecified
CPT/HCPCS: 52240; 52332; 52351; 36415; 76000; 82948; J0744; J1100; J2405; J2704; J3010

== ENCOUNTER 2023-12-14 13:15 | Emergency (ER) | payer MEDICARE, SELFPAY ==
[2023-12-14 13:17] VITALS: BP 142/73; PULSE 69; TEMP 36.6; O2SAT 95; BMI 31.7
--- OUTSIDE RECORDS SUMMARY | 2023-12-14 13:19 | XMS_ITS | CCD ---
Author Organization [facility] CliniSytn Care Team Providers Care Puppet Maker Name Role Phone Braulio Linares Unavailable JENA NIX Primary Care Physician Kassy Grey CNP Primary Care Provider Kassy Grey CNP Attending Unavailable AGAPITO KIM Attending Unavailable BOYD RUGEN M Referring Unavailable BOYD, RUGEN M Primary Care Unavailable MANANVICKYAURORA Attending Unavailable BOYD, RUGEN M Primary Care Unavailable MANANAURORA JAY Attending Unavailable MANANVICKYAURORA Referring Unavailable BOYD, RUGEN M Primary Care Unavailable MANANAURORA Gaytan Attending Unavailable MANAN AURORA Referring Unavailable BOYD, RUGEN M Primary Care Unavailable BOYD, RUGEN M Primary Care Unavailable BOYD RUGEN M Attending Unavailable KARLA HAYNES Attending Unavailable BOYDOBEYEN M Attending Unavailable MANUEL GRACE Attending Unavailable BOYD, RUGEN M Referring Unavailable KAT UNDERWOOD Attending Unavailable BOYD RUGEN M Attending Unavailable KARLA HAYNES Attending Unavailable MD Jena Nix Primary Care Provider MD Jose Muhammad Attending Provider [phone] Jose Muhammad Attending Unavailable Jose Muhammad Admitting Unavailable [place], Rugen M Primary Care Unavailable Orzech, Lanny X Attending Unavailable Jose MUHAMMAD Attending Unavailable Jose MUHAMMAD Attending Unavailable Jose MUHAMMAD Attending Unavailable Jose MUHAMMAD Attending Unavailable Jose MUHAMMAD Attending Unavailable Jose MUHAMMAD Admitting Unavailable Jose MUHAMMAD Attending Unavailable Orzech, Lanny X Admitting Unavailable Orzech, Lanny X Attending Unavailable Jose MUHAMMAD Attending Unavailable Jose MUHAMMAD Attending Unavailable Orzech, Lanny X Attending Unavailable Jose MUHAMMAD Attending Unavailable Jose MUHAMMAD Referring Unavailable Allergies Allergy Classification Reported Allergen(s) Allergy Type Date of Onset Reaction(s) Facility Iodine (and Iodine containting drugs) (1 source) Iodine; Translations: [iodine] Drug Allergy Eruption of skin (disorder) [facility] Penicillins (antibiotic) (1 source) Penicillin; Translations: [penicillin] Drug Allergy Unknown (qualifier value) [facility] Shellfish (1 source) Shellfish; Translations: [shellfish] Food Allergy Unknown risk of deliberate self harm (finding) [facility] (20 sources) Iodine; Translations: [Iodine] Drug Allergy 7 Eruption of skin (disorder) [facility] (1 source) Penicillin V Drug Allergy Unknown [facility] Other (18 sources) Penicillin; Translations: [penicillin] Drug Allergy Unknown (qualifier value) [facility] (14 sources) Shellfish; Translations: [shellfish] Drug allergy Unknown risk of deliberate self harm (finding) [facility] (4 sources) Penicillin V; Translations: [Penicillin V Potassium 500 MG Oral Tablet] Drug Allergy 3 Skin Rashes / Eruption of skin, Hives / Urticaria [facility] (4 sources) IV DYE, IODINE CONTAINING Allergy to substance 3 Skin Rashes / Eruption of skin, Hives / Urticaria [facility] (4 sources) Penicillins; Translations: [PENICILLINS] Propensity to adverse reactions to drug (disorder) 7 Unknown Reaction [facility] (1 source) Sodium Iodide; Translations: [SODIUM IODIDE] Drug Allergy 7 [facility] Medications Current Medications Medication Drug Class(es) Dates Sig (Normalized) Sig (Original) acetaminophen 500 mg oral capsule (10 sources) Start: 11-19-2023 take 1000 mg by [...] Daily, # 90 tab(s), Refills(s) 3, Pharmacy: [facility] [id number], 175, cm, 09/04/21 12:23:00 EDT, Height/Length Dosing, 102.1, kg, 09/04/21 12:23:00 EDT, Weight Dosing Start Date: 04/11/22 Status: Ordered allopurinol 100 mg oral tablet (20 sources) Xanthine Oxidase Inhibitor Start: 09-07-2022 take 100 mg by mouth twice daily Allopurinol Active 100 MG PO Twice daily November 19, 2023 12:00am Start: 09-07-2022 allopurinol 10 0 mg Tab [...] alpha-Adrenergic Peng, beta-Adrenergic Peng Start: 05-25-2019 take 3.125 mg by mouth twice daily Carvedilol Active 3.125 MG PO Twice daily November 19, 2023 [...] hrs Active cholecalciferol 0.05 mg oral capsule (3 sources) Vitamin D Start: take 2000 [IU] by mouth once daily Cholecalciferol (Vitamin D3) Active 2000 UNIT PO Daily November 19, 2023 12:00am take 1 capsule by mo [facility] every twenty-four hours Vitamin D 50 MCG (1999 UT) 1 tablet Orally Once a day Active dapagliflozin 10 mg oral tablet (20 sources) Sodium-Glucose Cotransporter 2 Inhibitor Start: 11-19-2023 take 1 tablet by mouth once daily Dapagliflozin Propanediol (Farxiga) 10 mg tablet Active 10 MG PO Daily November 19, 2023 12:00am Start: 09-07-2022 End: 10-21-2023 Farxiga 10 mg [...] 01/16/2023 Provider: take 1 capsule by mo [facility] twice daily Fish Oil 600 [...] take 1 tablet by benedicto th every twelve hours Furosemide 20 MG 1 [...] day(s), # 7 tab(s), Refills(s) 0, Pharmacy: [facility] [id number], 175, cm, 09/07/22 11:46:00 EDT, Height/Length Dosing, 102, kg, 09/07/22 11:46:00 EDT, Weight Dosing Start Date: 09/21/22 Stop Date: 09/28/22 Status: Ordered metFORMIN hydrochloride 1000 mg oral tablet (1 source) Biguanide take 1 tablet by mouth every twenty-four hours metFORMIN HCl 1000 MG 1 tablet with a meal Orally Once a day Active [place] 2-Wqm-Zeo-Fish Oil (Fish Oil) [phone] mg capsule,delayed release(DR/EC) (2 sources) Start: 11-19-2023 take 1 capsule by mouth twice daily [place] 4-Kip-Qih-Fish Oil (Fish Oil) [phone] mg capsule,delayed release(DR/EC) Active 1 CAP PO Twice daily November 19, 2023 12:00am oxybutynin chloride 5 mg oral tablet (5 sources) Cholinergic Muscarinic Antagonist Start: 09-07-2022 take 1 tablet by mouth at bedtime oxybutynin 5 mg Tab 5 mg = 1 tab(s), Oral, Bedtime, # 30 tab(s), Refills(s) 11, Pharmacy: [facility] [id number], 175, cm, 09/07/22 11:46:00 EDT, Height/Length Dosing, [...] Active solifenacin succinate 10 mg oral tablet (13 sources) Cholinergic Muscarinic Antagonist Start: 07-19-2023 Solifenacin Succinat e 5 MG Oral Tablet 07/19/2023 Provider: Start: 07-08-2023 End: 07-02-2024 take 10 mg by mouth once daily Solifenacin Active 10 M G PO Daily November 19, 2023 12:00am tamsulosin hydrochloride 0.4 mg oral capsule (9 sources) alpha-Adrenergic Peng Start: 09-24-2023 take 0.4 mg by mouth once daily Tamsulosin Active 0.4 MG PO Daily November 19, 2023 12:00am Vitamin D (9 sources) Start: 07-08-2023 Vitamin [...] completed., # 2 tab(s), Refills(s) 0, Pharmacy: [facility] [id number], 175, cm, 09/07/22 11:46:00 EDT, Height/Length Dosing, [...] disease (2 sources) Atherosclerotic heart disease of [place] coronary artery without angina pectoris; Translations: [Coronary arteriosclerosis] Onset: 09-16-2020 Chronic Coronary atherosclerosis and other heart disease (1 source) Presence of aortocoronary bypass graft; Translations: [Presence of aortocoronary bypass graft] Onset: 10-29-2023 Episodic Deficiency and other anemia (5 sources) Anemia, unspecified; Translations: [Anemia, unspecified] Episodic Deficiency and other anemia (2 sources) Anemia; Translations: [Anemia, unspecified] 11-19-2023 Episodic Diabetes mellitus with complications (4 sources) 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 [...] Onset: 09-16-2020 Chronic Fluid and electrolyte disorders (8 sources) Hyperkalemia; Translations: [Hyperkalemia] Episodic Genitourinary symptoms [...] Chronic Hypertension with complications and secondary hypertension (4 sources) Hypertensive renal disease; Translations: [Hypertensive chronic kidney disease with stage 1 through stage 4 chronic kidney disease, or unspecified chronic kidney disease] 11-19-2023 Chronic Neoplasms of unspecified nature or uncertain behavior (5 sources) Neoplasm of bladder; Translations: [Neoplasm of unspecified behavior of bladder] Onset: 11-01-2023 Episodic Nutritional deficiencies (11 sources) Vitamin D deficiency; Translations: [Vitamin D [...] of kidney 11-01-2023 Episodic Other endocrine disorders (2 sources) Hyperparathyroidism; Translations: [Hyperparathyroidism, unspecified] 11-19-2023 Chronic Other endocrine disorders (2 sources) Hyperparathyroidism, unspecified; Translations: [Hyperparathyroidism, unspecified] 11-19-2023 Chronic Other nutritional; endocrine; and metabolic disorders (14 sources) Body mass index 30+ - obesity 09-07-2022 Chronic Other nutritional; endocrine; and metabolic disorders (10 sources) Finding of body mass index; Translations: [Body mass index (observable entity)] Onset: 01-16-2023 Chronic Other nutritional; endocrine; and metabolic disorders (5 sources) Hyperuricemia without signs of inflammatory arthritis and tophaceous disease; Translations: [Other abnormal blood chemistry] Episodic Other nutritional; endocrine; and metabolic disorders (2 sources) Hyperuricemia; Translations: [Hyperuricemia without signs of inflammatory [...] Test Name Value Interpretation Reference Range [facility] - MIS [id number]#1.00 TIFF Normal [facility] Lab Reportson 12-12-2023 Lab Reports [id number] 0TIFF Normal [facility] Operative Reporton Operative Report [id number]#1.00 TIFF Normal [facility] Consultation Noteon 12-10-19 Consultation Note [id number]#1.00 TIFF Normal [facility] Lab Reportson 11-28-2023 Lab Reports [id number]#1.00 TIFF Normal [facility] Lab Reports [id number]#1.00 TIFF Normal [facility] Lab Reportson 11-27-2023 Lab Reports [id number]#1.0 0TIFF [facility] RAD - MISCon 11-27-2023 RAD - MISC [id number]#1.00 TIFF Normal [facility] Patient Educationon 11-26-19 Patient Education Oncology Transurethral [...] including vitamins, herbs, eye drops, creams, and mqwq-zlf-sbiquce medicines. ? Any problems you or family [...] tells you to take them. ? Taking htqx-jla-lijjgpq medicines, vitamins, herbs, and supplements. General instructions [...] as y (more content not included)... Normal [facility] C Urineon 11-24-2023 Bacteria identified Cx Nom [...] Locations R1: This test was performed at: [facility], [address] [place] [address], [id number]- , [place], Normal [facility] Comment on above: Performed By: #### 2 [id number] #### [facility] Laboratory [address] [place] [address] Consent for Procedure/Surger yon 11-06-2023 Consent for Procedure/Surgery [id number]. 00TIFF Normal [facility] Consent for Procedure/Surgery [id number]#1.0 0TIFF Normal [facility] Formson 11-06-2023 Forms [id number]#1.00 TIFF Normal [facility] Patient Educationon 11-01-19 Patient Education Oncology Transurethral Resection of Bladder [...] including vitamins, herbs, eye drops, creams, and btxm-qwi-ftkjoer medicines. ? Any problems you or family [...] tells you to take them. ? Taking fais-ddt-uibbsmz medicines, vitamins, herbs, and supplements. General instructions [...] as y (more content not included)... Normal [facility] Urology Office/Clinic Noteon 11-01-2023 Urology Office/Clinic Note [...] arranged. Assessment/Plan Last seen by JOSE Rodríguez, MIGUELITO 09/24/23 for gross hematuria. 1. Bladder tumor [...] was passing blood clots and proceeded to [facility] ER where marquez was placed. No documented [...] requiring dedica (more content not included)... Normal [facility] Comment on above: Result Comment: Elec tronically Signed By: Jose MUHAMMAD MD\.br\Date and Time Signed: 11/01/23 12:04 EDT\.br\Electronically Co-Signed By: Raiza Brush\Date and Time Co-Signed: 11/01/23 12:00 EDT\.br\Electronically Co-Signed By: Raiza Brush\Date and Time Co-Signed: 11/01/23 12:02 EDT Urine Cytology ([facility])on 0 09-27-2023 Microscopic exam Cytology (U) [Interp] Diagnosis Info Invalid Interpretation Code [facility] Comment on above: Result Comment: A:Ur ine,Urine:Voided Interpretation - MicroScopic Description - Adequacy - Gross Description Site ID:A color Yellow fixative Alcohol Specimen designated Urine received in alcohol preservative and labeled with the patient?s name, consists of 50ml clear yellow fluid. Electronically signed by : on: 09/27/2023 13:01:07 Performed By: #### 1 [id number] ####[facility] [address] [place] [address] C Urineon 09-26-2023 Bacteria identified Cx Nom (U) Microbiology PROCEDURE: Urine Culture [R1] SOURCE: U Random BODY SITE: COLLECTED DATE/TIME: 09/24/2023 15:27 EDT RECEIVED DATE/TIME: 09/24/2023 18:32 EDT START DATE/TIME: 09/24/2023 18:32 EDT FREE TEXT SOURCE: JOSE De La Cruz APRN, JOSE De La Cruz APRN, Lanny X Lanny X FINAL REPORTS Final Report [] Verified Date/Time: 09/26/2023 11:36 EDT 1,000 cfu/ml Mixed skin contaminants Performing Locations R1: [facility], [address] [place] [address], [address] , , Normal [facility] Comment on above: Performed By: #### 2 [id number] ####[facility] [address] [place] [address] Screenson 09-26-2023 Screens [id number]#1. 00TIFF Normal [facility] Screens [id number]#1. 00TIFF [facility] Patient Educationon 09-24-19 Patient Education Obstetrics and Gynecology Overactive Bladder, [...] health care provider. General instructions ? Take cwmi-xio-bzruydu and prescription medicines only as told by [...] monitor yo (more content not included)... Normal [facility] URINALYSISOrdered By: SYSTEM SYSTEM on 09-24-2023 Color (U) Colorless 1 *ABN* (09/24/23 3:27 PM) Invalid Interpretation Code Yellow [facility] UA Auto SS Comment on above: Interpretive Data: M icroscopic readings are only performed on those samples that meet specific criteria set forth by [facility] Laboratory. Glucose (U) [Mass/Vol] 4 mg/dL Invalid Interpretation Code Negativemg/d L [facility] UA Auto SS Ketones Ql (U) Negative Normal Negativemg/d L [facility] UA Auto SS UA Blood 3+ mg/dL Invalid Interpretation Code Negativemg/d L [facility] UA Auto SS UA Clarity Clear (09/24/23 3:27 PM) Normal Clear [facility] UA Auto SS UA Leuk Est Negative Normal NegativeLeu/ uL [facility] UA Auto SS UA Mucous Trace graded/LPF Normal Negativegra d ed/LPF [facility] UA Auto SS UA Nitrite Negative Normal Negativemg/d L [facility] UA Auto SS UA pH 5.5 *NA* (09/24/23 3:27 PM) Invalid Interpretation Code 5.0 - 9.0 [facility] UA Auto SS UA Protein Negative Normal Negativemg/d L [facility] UA Auto SS UA RBC 31-75 graded/HPF Invalid Interpretation Code 0-3graded/HP F [facility] UA Auto SS UA Spec Grav 1.007 *NA* (09/24/23 3:27 PM) Invalid Interpretation Code 1.005 - 1.030 [facility] UA Auto SS UA Urobilinogen Negative Normal Negativemg/d L [facility] UA Auto SS UA WBC 16-25 graded/HPF Invalid Interpretation Code 0-5graded/HP F [facility] UA Auto SS UA WBC Clump 0-3 graded/HPF Invalid Interpretation Code [facility] UA Auto SS Urobilinogen (U) [Mass/Vol] Negative Normal Negativemg/d L [facility] UA Auto SS URINALYSISOrdered By: Erika Roa on 09-24-2023 UA Spec Desc Random Urine (09/24/23 3:27 PM) Normal [facility] UA Auto SS Urinalysis with Microon - Color (U) Colorless Abnormal Yellow [facility] Comment on above: Result Comment: Micr oscopic readings are only performed on those samples that meet specific criteria set forth by [facility]. Performed By: #### 4 [id number] ####[facility] [address] [place] [address] Ketones Ql (U) Negative Normal Negative [facility] Comment on above: Performed By: #### 4 [id number] ####[facility] [address] [place] [address] UA Blood 3+ mg/dL Abnormal Negative [facility] Comment on above: Performed By: #### 4 [id number] ####[address] [place] [address] UA Clarity Clear Normal Clear [facility] Comment on above: Performed By: #### 4 [id number] ####[address] [place] [address] UA Glucose 4+ mg/dL Abnormal Negative [facility] Comment on above: Performed By: #### 4 [id number] ####[facility] [address] [place] [address] UA Leuk Est Negative Normal Negative [facility] Comment on above: Performed By: #### 4 [id number] ####[address] [facility] [place] [address] UA Mucous Trace Normal Negative [facility] Comment on above: Performed By: #### 4 [id number] ####[address] [place] [address] UA Nitrite Negative Normal Negative [facility] Comment on above: Performed By: #### 4 [id number] ####[facility] [address] [place] [address] UA pH 5.5 Invalid Interpretation Code 5.0-9.0 [facility] Comment on above: Performed By: #### 4 [id number] ####[facility] [address] [facility] [place] [address] UA Protein Negative Normal Negative [facility] Comment on above: Performed By: #### 4 [id number] ####[facility] [address] [place] [address] UA RBC 31-75 Abnormal 0-3 [facility] Comment on above: Performed By: #### 4 [id number] ####[facility] [address] [place] [address] UA Spec Grav 1.007 Invalid Interpretation Code 1.005-1.030 [facility] Comment on above: Performed By: #### 4 [id number] ####[facility] [address] [place] [address] UA Urobilinogen Negative Normal Negative [facility] Comment on above: Performed By: #### 4 [id number] ####[address] [address] UA WBC 16-25 Abnormal 0-5 [facility] Comment on above: Performed By: #### 4 [id number] ####[address] [address] UA WBC Clump 0-3 Abnormal [facility] Comment on above: Performed By: #### 4 [id number] ####[address] [address] Urobilinogen (U) [Mass/Vol] Negative Normal Negative [facility] Comment on above: Performed By: #### 4 [id number] ####[facility] [address] [place] [address] UA Spec Desc Random Urine Normal [facility] Comment on above: Performed By: #### 4 [id number] ####[facility] [address] [place] [address] Urine Cytology ([facility])on 0 09-24-2023 UC Method of Extraction Voided Normal [facility] Comment on above: Performed By: #### 1 [id number] ####[address] [place] [address] UC Number of Jars 1 Invalid Interpretation Code [facility] Comment on above: Performed By: #### 1 [id number] ####[facility] [address] [place] [address] Specimen Urine Normal [facility] Comment on above: Performed By: #### 1 [id number] ####[facility] [address] [place] [address] Type of Service Technical Only Normal Julius [facility]ier [facility] Comment on above: Performed By: #### 1 [id number] ####[facility] [address] [place] [address] Urology Office/Clinic Noteon 09-24-2023 Urology Office/Clinic Note [...] c/o small blood clots. Had gone to [facility] 07/10/23 & they placed a catheter. (No PVR noted in ER note) NEG C&S at that time. UA did show LARGE blood, NEG leuks & + Nitrates. CMP 07/10/23- BUN 39, Crea 2.15 & eGFR 30 CT ap w/o *Unchanged nonobstructing Rt Renal Calculus (Hospital did want to admit pt due to RACHAEL, however, pt declined) Pt then returned to [facility] ER 07/11/23 CC: catheter leaking & pink [...] with voice recognition artificial intelligence software, specifically [employer] and or [employer]. Substitutions may have occurred due to the [...] was passing blood clots and proceeded to [facility] ER where marquez was placed. No documented [...] well w/o SE. Continue current dose. Ordered: [id number] Measure Post Void residual urine and/or bladder capacity by US (more content not included)... Normal [facility] Comment on above: Result Comment: Elec tronically Signed By: JOSE De La Cruz APRN, Lanny Ford\.br\Date and Time Signed: 09/24/23 16:[address] EDT RAD - CT Reporton 07-23-2023 RAD - CT Report [id number]#1.0 0TIFF Normal [facility] Ambulatory Visit Summaryon 0 07-15-2023 Ambulatory Visit Summary HUSSAIN AUGUSTE :1940 Visit Date:07/15/2023 Ambulatory Visit Instructions Your Care Team Attending Physician - MELISA QUEVEDO, Jose Desai Primary Care Physician - JENA NIX MD [...] QUEVEDO, Jose Desai Where: [facility] ED Note-Physicianon 07-15-19 ED Note-Physician [id number]#1.00 TIFF [facility] ED Note-Physician [id number]#1.00 [facility] Comment on above: Other Comment: HOWARD SAGASTUME BASIC METABOLIC PANLon 07-11 Anion gap [Moles/Vol] 10 mmol/L Normal 5-15 [facility] Comment on above: Performed By: #### C KWESI, JOJO, 29144-7 #### [facility] ([id number]) [address] [place] [address], [place] [address] Calcium [Mass/Vol] 9.2 mg/dL Normal 8.5-10.5 [facility] Comment on above: Performed By: #### C KWESI [facility], #### [facility] ([id number]) [address] [place] [address] Chloride [Moles/Vol] 100 mmol/L Normal 98-109 [facility] Comment on above: Performed By: #### C KWESI, [facility], #### [facility] ([id number]) [address] [place] [address] CO2 [Moles/Vol] 23 mmol/L Normal 22-32 [facility] Comment on above: Performed By: #### C KWESI [facility], #### [facility] ([id number]) [address] [place] [address] Creatinine [Mass/Vol] 2.15 mg/dL High 0.70-1.20 [facility] Comment on above: Result Comment: METH OD TRACEABLE TO IDMS STANDARD Performed By: #### C KWESI [facility], #### [facility] ([id number]) [address] [place] [address] 96863 GFR/1.73 sq M.predicted among non-blacks MDRD (S/P/Bld) [Vol rate/Area] 30 mL/min/{1.73_m2} Low >59 [facility] Comment on above: Result Comment: Reported eGFR is based on the CKD-EPI 1 equation that does not use a race coefficient. Performed By: #### C JOJO OROSCO, #### [facility] ([id number]) [address] [place] [address] 94498 Glucose [Mass/Vol] 115 mg/dL High 65-99 [facility] Comment on above: Performed By: #### C KWESI, JOJO, #### [facility] ([id number]) [address] [place] [address] 05820 Potassium [Moles/Vol] 4.0 mmol/L Normal 3.5-5.0 [facility] Comment on above: Performed By: #### C KWESI [facility], #### [facility] ([id number]) [address] [place] [address] 40220 Sodium [Moles/Vol] 133 mmol/L Low 134-146 [facility] Comment on above: Performed By: #### Memo OROSCO [facility], #### [facility] ([id number]) [address] [place] [address] 27451 Urea nitrogen [Mass/Vol] 39 mg/dL High 5-27 [facility] Comment on above: Performed By: #### Memo OROSCO [facility], #### [facility] ([id number]) [address] [place] [address] 26035 CBC AND AUTO DIFFon 07-11-19 ABSOLUTE BASOPHIL 0.1 X10E9/L Normal 0.0-0.2 [facility] Comment on above: Performed By: #### Memo OROSCO [facility], #### [facility] ([id number]) [address] [place] [address] 98699 ABSOLUTE NEUTROPHIL 10.4 X10E9/L High 1.5-6.6 [facility] Comment on above: Performed By: #### Memo OROSCO [facility], #### [facility] ([id number]) [address] [place] [address] 63208 Basophils/100 WBC (Bld) 0.5 % Normal [facility] Comment on above: Performed By: #### Memo OROSCO [facility], #### [facility] ([id number]) [address] [place] [address] 13855 Eosinophils (Bld) [#/Vol] 0.1 10*3/uL Normal 0.0-0.4 [facility] Comment on above: Performed By: #### C KWESI [facility], #### [facility] ([id number]) [address] [place] [address] 47138 Eosinophils/100 WBC (Bld) 0.8 % Normal [facility] Comment on above: Performed By: #### Memo OROSCO [facility], #### [facility] ([id number]) [address] [place] [address] 36745 Erythrocyte distribution width (RBC) [Ratio] 16.5 % High 11.5-15.0 [facility] Comment on above: Performed By: #### Memo OROSCO [facility], #### [facility] ([id number]) [address] [place] [address] 91102 Hematocrit (Bld) [Volume fraction] 38.1 % Low 39-49 [facility] Comment on above: Performed By: #### Memo OROSCO [facility], #### [facility] ([id number]) [address] [place] [address] 62188 Hemoglobin (Bld) [Mass/Vol] 13.0 g/dL Normal 13.0-17.0 [facility] Comment on above: Performed By: #### Memo OROSCO [facility], #### [facility] ([id number]) [address] [place] [address] 27001 Lymphocytes (Bld) [#/Vol] 1.4 10*3/uL Normal 1.0-3.5 [facility] Comment on above: Performed By: #### C JOJO OROSCO, #### [facility] ([id number]) [address] [place] [address] 11593 Lymphocytes/100 WBC (Bld) 11.1 % Normal [facility] Comment on above: Performed By: #### JOJO Hampton BCA, #### [facility] ([id number]) [address] [place] [address] 00885 MCH (RBC) [Entitic mass] 30.0 pg Normal 27-34 [facility] Comment on above: Performed By: #### JOJO [place] BCA, #### [facility] ([id number]) [address] [place] [address] 12649 MCHC (RBC) [Mass/Vol] 34.0 g/dL Normal 32-36 [facility] Comment on above: Performed By: #### JOJO [place] BCA, #### [facility] ([id number]) [address] [place] [address] 63375 MCV (RBC) [Entitic vol] 88 fL Normal 80-100 [facility] Comment on above: Performed By: #### JOJO [place] BCA, #### [facility] ([id number]) [address] [place] [address] 13531 Monocytes (Bld) [#/Vol] 0.8 10*3/uL Normal 0-0.9 [facility] Comment on above: Performed By: #### Memo OROSCO [facility], #### [facility] ([id number]) [address] [place] [address] 51764 Monocytes/100 WBC (Bld) 6.0 % Normal [facility] Comment on above: Performed By: #### JOJO [place] BCA, #### [facility] ([id number]) [address] [place] [address] 39526 Neutrophils/100 WBC (Bld) 81.6 % Normal [facility] Comment on above: Performed By: #### JOJO [place] BCA, #### [facility] ([id number]) [address] [place] [address] 49175 Platelet mean volume (Bld) [Entitic vol] 8.5 fL Normal 7-12 [facility] Comment on above: Performed By: #### C KWESI [facility], 33536-7 #### [facility] ([id number]) [address] [place] [address] 75755 Platelets (Bld) [#/Vol] 193 10*3/uL Normal 150-450 [facility] Comment on above: Performed By: #### C JOJO OROSCO, 33349-7 #### [facility] ([id number]) [address] [place] [address] 31471 RBC COUNT 4.32 X10E12/L Normal 4.10-5.70 [facility] Comment on above: Performed By: #### C JOJO OROSCO, 06946-5 #### [facility] ([id number]) [address] [place] [address] 96741 WBC (Bld) [#/Vol] 12.7 10*3/uL High 4.0-11.0 [facility] Comment on above: Performed By: #### C KWESI [facility], 73056-4 #### [facility] ([id number]) [address] [place] [address] ABDOMEN AND PELVIS WO CON Ton [...] Hargrove MD on 07/10/2023 11:54 PM Normal [facility] MAGNESIUMon 07-11-2023 Magnesium [Mass/Vol] 2.2 mg/dL Normal 1.8-2.6 [facility] Comment on above: Performed By: #### C BCA, BMP, 57271-6 #### [facility] ([id number]) [address] [place] [address] 24473 Screenson 07-10-2023 Screens [id number] TIFF Normal [facility] URINE CULTUREon 07-10-2023 Bacteria identified Cx Nom (U) CULTURE RESULTS NO GROWTH AT <1000 CFU/mL Normal [facility] Comment on above: Performed By: #### 6 30-4 #### [facility] ([id number]) [address], [address] [place] [address] URN MACROSCOPIC NURon 2023 BILIRUBIN TOY Small Abnormal NEG [facility] Comment on above: Performed By: #### N UM #### [facility] ([id number]) [address] [place] [address] 85339 BLOOD/HGB TOY Large Abnormal NEG [facility] Comment on above: Performed By: #### N UM #### [facility] ([id number]) [address] [place] [address] 20129 GLUCOSE TOY >=1000 Abnormal NEG [facility] Comment on above: Performed By: #### N UM #### [facility] ([id number]) [address] [place] [address] 09186 KETONES TOY Negative Normal NEG [facility] Comment on above: Performed By: #### N UM #### [facility] ([id number]) [address] [place] [address] 49604 LEUKOCYTE ESTERASE TOY Negative Normal NEG [facility] Comment on above: Performed By: #### N UM #### [facility] ([id number]) [address] [place] [address] 56515 NITRITE TOY Positive Abnormal NEG [facility] Comment on above: Performed By: #### N UM #### [facility] ([id number]) [address] [place] [address] 73952 PH TOY 5.5 Normal 5.0-8.5 [facility] Comment on above: Performed By: #### N UM #### [facility] ([id number]) [address] [place] [address] 03461 PROTEIN TOY >=300 Abnormal NEG [facility] Comment on above: Performed By: #### N UM #### [facility] ([id number]) [address] [place] [address] 17728 SPECIFIC GRAVITY TOY 1.010 Normal 1.003-1.035 [facility] Comment on above: Performed By: #### N UM #### [facility] ([id number]) [address] [place] [address] 67480 UROBILINOGEN TOY 0.2 eu/dL Normal <1.1 [facility] Comment on above: Performed By: #### N UM #### [facility] ([id number]) [address] [place] [address] 60326 Ambulatory Visit Summaryon 0 1-15-2024 Ambulatory Visit Summary HUSSAIN AUGUSTE :1940 Visit Date:07/08/2023 Ambulatory Visit Instructions Your Diagnosis Incomplete bladder emptying BPH with urinary obstruction Gross hematuria Other obstructive and reflux uropathy Tests Performed Urnls Dip Stick Auto w/o Microscopy POC 68968 Your Care Team Attending Physician - JOSE De La Cruz APRN, Lanny Ford Primary Care Physician - JENA [...] QUEVEDO, Jose Desai Where: [facility] Patient Educationon 07-08-19 24 Patient Education Obstetrics and Gynecology Overactive [...] health care provider. General instructions ? Take unvf-yzm-ckkpcso and prescription medicines only as told by [...] monitor yo (more content not included)... Normal [facility] Urology Office/Clinic Noteon 07-08-2023 Urology Office/Clinic Note [...] dosage. -Start solifenacin 10mg QD, sent to [facility] [place]. Ordered: solifenacin, 10 mg = 1 tab(s), Oral, Daily, X 90 day(s), # 90 tab(s), Refills(s) 3, Pharmacy: [facility] [id number], 173, cm, 07/08/23 14:00:00 EST, Height/Length Dosing, [...] 09/13/22 - simple left renal cysts cysto 10/02/22 - negative for bladder tumors, [...] emptying (R33.9: Retention of urine, unspecified) Ordered: 83954 Measure Post Void residual urine and/or bladder capacity by US- non-imaging Urnls Dip Stick Auto w/o Microscopy POC 77688 Other obstructive and reflux uropathy (N13.8: Other [...] self harm) So (more content not included)... Normal [facility] Comment on above: Result Comment: Elec tronically Signed By: JOSE De La Cruz APRN, [place] X\.br\Date and Time Signed: 07/08/23 14:39 EST Ambulatory Visit Summaryon 1 Ambulatory Visit Summary HUSSAIN AUGUSTE :1940 Visit Date:04/01/2023 Ambulatory Visit Instructions Your Diagnosis Personal history of prostate cancer BPH with urinary obstruction Gross hematuria Other obstructive and reflux uropathy Tests Performed Urnls Dip Stick Auto w/o Microscopy POC 88958 Your Care Team Attending Physician - MELISA QUEVEDO, Jose Desai Primary Care Physician - JENA NIX MD Referring Physician - MELISA QUEVEDO, Jose Desai This Is Your Medications List alfuzosin (alfuzosin [...] QUEVEDO, Jose Desai Where: [facility] [place] Normal [facility] Patient Educationon 04-01-20 Patient Education Urology Benign [...] Follow these instructions at home: ? Take bbpe-ysr-phzeear and prescription medicines only as told by [...] the medicine (more content not included)... Normal [facility] Urology Office/Clinic Noteon 04-01-2023 Urology [...] understanding. -Will send Myrbetriq 50mg ER to [facility] in [place]. Discussed the medication side effects, and the patient will monitor closely for these, as well as for symptom improvement. If severe side effects occur, the medication should be stopped and the office notified. 3. Gross hematuria (R31.0: Gross hematuria) Atypical Cytology & + FISH 09/07/22 UA today shows trace-intact blood. Denies visible blood since last encounter. Follow-up With When Contact Information Jose MUHAMMAD MD, URL In 6 months [facility] [address], [place] [address]- Additional Instructions: Patient Education Benign Prostatic Hyperplasia I, Anita Jones , personally scribed for Dr. Muhammad on 04/01/2023 14:33:54. . Documentation recorded by the scribe, Anita Jones, accurately reflects the services(s) I performed and [...] Tonsillectomy. M (more content not included)... Normal [facility] Comment on above: Result Comment: Elec tronically Signed By: Jose MUHAMMAD MD\.br\Date and Time Signed: 04/01/23 14:50 EDT\.br\Electronically Co-Signed By: Anita Jones\.br\Date and Time Co-Signed: 04/01/23 14:34 EDT CHEMISTRYOrdered By: SYSTEM SYSTEM on 09-07-2022 Prostate specific Ag [Mass/Vol] ng/mL Normal 0.1 - 3.5 ng/mL [facility] Remisol US Renal/Bladderon 2 US Renal/Bladder FINDINGS: Right Vabwso96.2 x 6.0 x 4.3 cm Left Ixxukk34.4 x 5.4 x 4.1cm Mild diffuse reduction [...] by Jerardo Lam on 10/09/2021 1228 Normal [facility] Comprehensive Metabolic Pane noel 09-27-2021 Albumin [Mass/Vol] 4.5 g/dL Normal 3.6-5.1 [facility] Comment on above: Performed By: #### C MP #### [facility] [address] [place], [place] [id number] Albumin/Globulin [Mass ratio] 2.5 {ratio} Normal 1.0-2.5 [facility] Comment on above: Performed By: #### C MP #### [facility] [address] [place], [place] [id number] ALP [Catalytic activity/Vol] 74 U/L Normal 40-129 [facility] Comment on above: Performed By: #### C MP #### [facility] [address] [place], [place] [id number] ALT [Catalytic activity/Vol] 12 U/L Normal 9-46 [facility] Comment on above: Result Comment: 05/24 Female reference range changed. Performed By: #### C MP #### [facility] [address] [place], [place] [id number] Anion gap [Moles/Vol] 18 mmol/L Normal 12-20 [facility] Comment on above: Result Comment: Effe ctive 06/29/2019 reference range changed. Performed By: #### C MP #### [facility] [address] [place], [place] [id number] AST [Catalytic activity/Vol] 18 U/L Normal 10-40 [facility] Comment on above: Performed By: #### C MP #### [facility] [address] [place], [place] [id number] Bilirubin [Mass/Vol] 0.44 mg/dL Normal 0.30-1.20 [facility] Comment on above: Performed By: #### C MP #### [facility] [address] [place], [place] [id number] BUN/CREA 21 Ratio Normal 6-22 [facility] Comment on above: Performed By: #### C MP #### [facility] [address] [place], [place] [id number] Calcium [Mass/Vol] 9.6 mg/dL Normal 8.6-10.2 [facility] Comment on above: Performed By: #### C MP #### [facility] [address] [place], [place] [id number] Chloride [Moles/Vol] 105 mmol/L Normal 98-107 [facility] Comment on above: Performed By: #### C MP #### [facility] [address] [place], [place] [id number] CO2 [Moles/Vol] 21 mmol/L Normal 20-31 [facility] Comment on above: Performed By: #### C MP #### [facility] [address] [place], [place] [id number] Creatinine [Mass/Vol] 2.4 mg/dL High 0.7-1.4 [facility] Comment on above: Performed By: #### C MP #### [facility] [address] [place], [place] [id number] eGFRAA 31 mL/min/1.73m2 Low >60 [facility] Comment on above: Performed By: #### C MP #### [facility] [address] [place], [place] [id number] eGFRNAA 26 mL/min/1.73m2 Low >60 [facility] Comment on above: Performed By: #### C MP #### [facility] [address] [place], [place] [id number] Globulin (S) [Mass/Vol] 1.8 g/dL Low 1.9-3.7 [facility] Comment on above: Performed By: #### C MP #### [facility] [address] [place], [place] [id number] Glucose [Mass/Vol] 86 mg/dL Normal 65-99 [facility] Comment on above: Result Comment: For FASTING Glucose --- ADA reference ranges: Normal 65-99 mg/dl Prediabetes 100-125 Diabetes >/= 126 Performed By: #### C MP #### [facility] [address] [place], [place] [id number] Potassium [Moles/Vol] 5.3 mmol/L Normal 3.5-5.5 [facility] Comment on above: Performed By: #### C MP #### [facility] [address] [place], [place] [id number] Protein [Mass/Vol] 6.3 g/dL Normal 6.1-8.1 [facility] Comment on above: Performed By: #### C MP #### [facility] [address] [place], [place] [id number] Sodium [Moles/Vol] 139 mmol/L Normal 135-146 [facility] Comment on above: Performed By: #### C MP #### [facility] [address] [place], [place] [id number] Urea nitrogen [Mass/Vol] 51 mg/dL High 7-25 [facility] Comment on above: Performed By: #### C MP #### [facility] [address] [place], [place] [id number] Complete Blood Count with Au to Diffon 09-20-2021 Basophils (Bld) [#/Vol] 0.05 10*3/uL Normal 0.00-0.20 [facility] Comment on above: Performed By: #### C BCAD, LIPD, CMP #### [facility] [address] [place], [place] [id number] Basophils/100 WBC (Bld) 0.6 % Normal [facility] Comment on above: Performed By: #### C BCAD, LIPD, CMP #### [facility] [address] [place], [place] [id number] Eosinophils (Bld) [#/Vol] 0.17 10*3/uL Normal 0.02-0.50 [facility] Comment on above: Performed By: #### C BCAD, LIPD, CMP #### [facility] [address] [place], [place] [id number] Eosinophils/100 WBC (Bld) 2.2 % Normal [facility] Comment on above: Performed By: #### C BCAD, LIPD, CMP #### [facility] [address] [place], [place] [id number] Erythrocyte distribution width (RBC) [Ratio] 15.3 % High 11.0-15.0 [facility] Comment on above: Performed By: #### C BCAD, LIPD, CMP #### [facility] [address] [place], [place] [id number] Hematocrit (Bld) [Volume fraction] 34.5 % Low 38.5-50.0 [facility] Comment on above: Performed By: #### C BCAD, LIPD, CMP #### [facility] [address] [place], [place] [id number] Hemoglobin (Bld) [Mass/Vol] 11.3 g/dL Low 13.0-17.1 [facility] Comment on above: Performed By: #### C BCAD, LIPD, CMP #### [facility] [address] [place], [place] [id number] Lymphocytes (Bld) [#/Vol] 1.5 10*3/uL Normal 0.9-3.9 [facility] Comment on above: Performed By: #### C BCAD, LIPD, CMP #### [facility] [address] [place], [place] [id number] Lymphocytes/100 WBC (Bld) 19.0 % Normal [facility] Comment on above: Performed By: #### C BCAD, LIPD, CMP #### [facility] [address] [place], [place] [id number] MCH (RBC) [Entitic mass] 30.6 pg Normal 27.0-33.0 [facility] Comment on above: Performed By: #### C BCAD, LIPD, CMP #### [facility] [address] [place], [place] [id number] MCHC (RBC) [Mass/Vol] 32.8 g/dL Normal 32.0-36.0 [facility] Comment on above: Performed By: #### C BCAD, LIPD, CMP #### [facility] [address] [place], [place] [id number] MCV (RBC) [Entitic vol] 94 fL Normal 80-100 [facility] Comment on above: Performed By: #### C BCAD, LIPD, CMP #### [facility] [address] [place], [place] [id number] Monocytes (Bld) [#/Vol] 0.6 10*3/uL Normal 0.2-0.9 [facility] Comment on above: Performed By: #### C BCAD, LIPD, CMP #### [facility] [address] [place], [place] [id number] Monocytes/100 WBC (Bld) 7.7 % Normal [facility] Comment on above: Performed By: #### C BCAD, LIPD, CMP #### [facility] [address] [place], [place] [id number] Neutrophils (Bld) [#/Vol] 5.4 10*3/uL Normal 1.5-7.8 [facility] Comment on above: Performed By: #### C BCAD, LIPD, CMP #### [facility] [address] [place], [place] [id number] Neutrophils/100 WBC (Bld) 70.0 % Normal [facility] Comment on above: Performed By: #### C BCAD, LIPD, CMP #### [facility] [address] [place], [place] [id number] Platelet mean volume (Bld) [Entitic vol] 10.50 fL Normal 7.50-12.50 [facility] Comment on above: Performed By: #### C BCAD, LIPD, CMP #### [facility] [address] [place], [place] [id number] Platelets (Bld) [#/Vol] 178 10*3/uL Normal 140-400 [facility] Comment on above: Performed By: #### C BCAD, LIPD, CMP #### [facility] [address] [place], [place] [id number] RBC (Bld) [#/Vol] 3.69 10*6/uL Low 4.20-5.80 [facility] Comment on above: Performed By: #### C BCAD, LIPD, CMP #### [facility] [address] [place], [place] [id number] RDW-SD 52.6 fL High 37.0-50.0 [facility] Comment on above: Performed By: #### C BCAD, LIPD, CMP #### [facility] [address] [place], [place] [id number] WBC (Bld) [#/Vol] 7.8 10*3/uL Normal 3.8-11.0 [facility] Comment on above: Performed By: #### C BCAD, LIPD, CMP #### [facility] [address] [place], [place] [id number] Comprehensive Metabolic Pane noel 09-20-2021 Albumin [Mass/Vol] 4.4 g/dL Normal 3.6-5.1 [facility] Comment on above: Performed By: #### C BCAD, LIPD, CMP #### [facility] [address] [place], [place] [id number] Albumin/Globulin [Mass ratio] 2.3 {ratio} Normal 1.0-2.5 [facility] Comment on above: Performed By: #### C BCAD, LIPD, CMP #### [facility] [address] [place], [place] [id number] ALP [Catalytic activity/Vol] 76 U/L Normal 40-129 [facility] Comment on above: Performed By: #### C BCAD, LIPD, CMP #### [facility] [address] [place], [place] [id number] ALT [Catalytic activity/Vol] 12 U/L Normal 9-46 [facility] Comment on above: Result Comment: 05/24 Female reference range changed. Performed By: #### C BCAD, LIPD, CMP #### [facility] [address] [place], [place] [id number] Anion gap [Moles/Vol] 18 mmol/L Normal 12-20 [facility] Comment on above: Result Comment: Effraimundo ctive 06/29/2019 reference range changed. Performed By: #### C BCAD, LIPD, CMP #### [facility] [address] [place], [place] [id number] AST [Catalytic activity/Vol] 18 U/L Normal 10-40 [facility] Comment on above: Performed By: #### C BCAD, LIPD, CMP #### [facility] [address] [place], [place] [id number] Bilirubin [Mass/Vol] 0.41 mg/dL Normal 0.30-1.20 [facility] Comment on above: Performed By: #### C BCAD, LIPD, CMP #### [facility] [address] [place], [place] [id number] BUN/CREA 19 Ratio Normal 6-22 [facility] Comment on above: Performed By: #### C BCAD, LIPD, CMP #### [facility] [address] [place], [place] [id number] Calcium [Mass/Vol] 9.6 mg/dL Normal 8.6-10.2 [facility] Comment on above: Performed By: #### C BCAD, LIPD, CMP #### [facility] [address] [place], [place] [id number] Chloride [Moles/Vol] 106 mmol/L Normal 98-107 [facility] Comment on above: Performed By: #### C BCAD, LIPD, CMP #### [facility] Laboratory [address] [place], [place] [id number] CO2 [Moles/Vol] 20 mmol/L Normal 20-31 [facility] Comment on above: Performed By: #### C BCAD, LIPD, CMP #### [facility] [address] [place], [place] [id number] Creatinine [Mass/Vol] 2.7 mg/dL High 0.7-1.4 [facility] Comment on above: Performed By: #### C BCAD, LIPD, CMP #### [facility] [address] [place], [place] [id number] eGFRAA 28 mL/min/1.73m2 Low >60 [facility] Assistant At Surgery Comment on above: Performed By: #### C BCAD, LIPD, CMP #### [facility] [address] [place], [place] [id number] eGFRNAA 23 mL/min/1.73m2 Low >60 [facility] Specialist Comment on above: Performed By: #### C BCAD, LIPD, CMP #### [facility] [address] [place], [place] [id number] Globulin (S) [Mass/Vol] 1.9 g/dL Normal 1.9-3.7 [facility] Specialist Comment on above: Performed By: #### C BCAD, LIPD, CMP #### [facility] [address] [place], [place] [id number] Glucose [Mass/Vol] 97 mg/dL Normal 65-99 Dany guerra [place] Assistant At Surgery Comment on above: Result Comment: For FASTING Glucose --- ADA reference ranges: Normal 65-99 mg/dl Prediabetes 100-125 Diabetes >/= 126 Performed By: #### C BCAD, LIPD, CMP #### [facility] [address] [place], [place] [id number] Potassium [Moles/Vol] 5.3 mmol/L Normal 3.5-5.5 [facility] Comment on above: Performed By: #### C BCAD, LIPD, CMP #### [facility] [address] [place], [place] [id number] Protein [Mass/Vol] 6.3 g/dL Normal 6.1-8.1 Dany guerra [place] Assistant At [facility] Comment on above: Performed By: #### C BCAD, LIPD, CMP #### [facility] [address] [place], [place] [id number] Sodium [Moles/Vol] 139 mmol/L Normal 135-146 Dany guerra [place] Assistant At Surgery Comment on above: Performed By: #### C BCAD, LIPD, CMP #### [facility] [address] [place], [place] [id number] Urea nitrogen [Mass/Vol] 49 mg/dL High 7-25 [facility] Assistant At Surgery Comment on above: Performed By: #### C BCAD, LIPD, CMP #### [facility] [address] [place], [place] [id number] Lipid Panelon 09-20-2021 Cholesterol [Mass/Vol] 98 mg/dL Low 125-200 [facility] Specialist Comment on above: Result Comment: Low risk < 200mg/dL Borderline risk 201-239 mg/dl High risk > or equal to 240 Performed By: #### C BCAD, LIPD, CMP #### [facility] [address] [place], [place] [id number] Cholesterol in HDL [Mass/Vol] 30 mg/dL Low >40 [facility] Assistant At Surgery Comment on above: Result Comment: High Cardiovascular Risk HDL <40 mg/dL Low Cardiovascular Risk HDL > or equal to 60 mg/dl Performed By: #### C BCAIshmael, LIPD, CMP #### [facility] [address] [place], [place] [id number] Cholesterol in LDL [Mass/Vol] 31 mg/dL Normal [facility] Specialist Comment on above: Result Comment: LDL ATP III CLASSIFICATION LDL less than 100 mg/dl Optimal LDL 100-129 mg/dl Near or above optimal LDL 130-159 Borderline high LDL 160-189 High LDL greater than 189 mg/dl Very High Performed By: #### C BCAD, LIPD, CMP #### [facility] [address] [place], [place] [id number] Cholesterol in VLDL [Mass/Vol] 37 mg/dL Normal [facility] Specialist Comment on above: Performed By: #### C BCAD, LIPD, CMP #### [facility] [address] [place], [place] [id number] Cholesterol.total/Cho lesterol in HDL [Mass ratio] 3 {ratio} Normal [facility] Specialist Comment on above: Performed By: #### C BCAD, LIPD, CMP #### [facility] [address] [place], [place] [id number] Triglyceride [Mass/Vol] 185 mg/dL High 30-150 [facility] Assistant At Surgery Comment on above: Result Comment: TRIG ATPIII CLASSIFICATIONS TRIG less than 150 mg/dl Normal TRIG 150-199 mg/dl Borderline High TRIG 200-500 mg/dl High TRIG greather than 500 mg/dl Very High Performed By: #### C BCAD, LIPD, CMP #### [facility] [address] [place], [place] [id number] PSA SCREEN (MEDICARE)on 08-24 TPSA 0.023 ng/mL Normal <4.000 [facility] Assistant At Surgery Comment on above: Result Comment: PSA Test Method: ECLIA/Flavia e 601 Performed By: #### P SA #### [facility] [address] [place], [place] [id number] Vital Signs Date Time Vital Sign Value Performing Clinician Facility 11-19-2023 11:21-0400 Body height 175.26 cm [facility] 11-19-2023 11:21-0400 Body mass index (BMI) [Ratio] 31.3 kg/m2 [facility] 11-19-2023 11:21-0400 Body temperature 96.7 [degF] [facility] 11-19-2023 11:21-0400 Body weight 96.16 kg [facility] 11-19-2023 11:21-0400 Diastolic blood pressure 62 mm[Hg] [facility] 11-19-2023 11:21-0400 Heart rate 67 /min [facility] 11-19-2023 11:21-0400 Respiratory rate 18 /min [facility] 11-19-2023 11:21-0400 SaO2% (BldA) [Mass fraction] 95 % [facility] 11-19-2023 11:21-0400 Systolic blood pressure 100 mm[Hg] [facility] 11-01-2023 10:55-0400 Blood Pressure Location Jose MUHAMMAD [facility] 11-01-2023 10:55-0400 Diastolic blood pressure 47 mm[Hg] Jose MUHAMMAD [facility] 11-01-2023 10:55-0400 Heart rate 67 /min Jose MUHAMMAD [facility] 11-01-2023 10:55-0400 Systolic blood pressure 137 mm[Hg] Jose MHUAMMAD [facility] 10-21-2023 11:12-0400 Body height 175.26 cm Kassy Que TREASURY SPECIALIST Work Phone: [facility] Work Phone: 10-21-2023 11:12-0400 Body mass index (BMI) [Ratio] 31.1 kg/m2 Kassy Grey TREASURY SPECIALIST Work Phone: [facility] Work Phone: 10-21-2023 11:12-0400 Body surface area Derived from formula 2.1 m2 Kassy Grey CNP Work Phone: [facility] Work Phone: 10-21-2023 11:12-0400 Body weight 95.62 kg Kassy Grey CNP Work Phone: [facility] Work Phone: 10-21-2023 11:12-0400 Diastolic blood pressure 72 mm[Hg] Kassy Grey TREASURY SPECIALIST Work Phone: [facility] Work Phone: 10-21-2023 11:12-0400 Heart rate 67 /min Kassy Que TREASURY SPECIALIST Work Phone: [facility] Work Phone: 10-21-2023 11:12-0400 SaO2% (BldA) [Mass fraction] 93 % Kassy Grey TREASURY SPECIALIST Work Phone: [facility] Work Phone: 10-21-2023 11:12-0400 Systolic blood pressure 124 mm[Hg] Kassy Grey TREASURY SPECIALIST Work Phone: [facility] Work Phone: 09-24-2023 14:36-0400 Blood Pressure Location Lanny De La Cruz [facility] 09-24-2023 14:36-0400 Diastolic blood pressure 61 mm[Hg] Lanny Orzech [facility] 09-24-2023 14:36-0400 Heart rate 63 /min Lanny Orzech [facility] 09-24-2023 14:36-0400 Respiratory rate 17 /min Lanny Orzech [facility] 09-24-2023 14:36-0400 Systolic blood pressure 117 mm[Hg] Lanny Orzech [facility] 07-19-2023 11:41-0500 Body height 175.26 cm Kassy Grey TREASURY SPECIALIST Work Phone: [facility] Work Phone: 07-19-2023 11:41-0500 Body mass index (BMI) [Ratio] 31.5 kg/m2 Kassy Grey TREASURY SPECIALIST Work Phone: [facility] Work Phone: 07-19-2023 11:41-0500 Body surface area Derived from formula 2.1 m2 Kassy Grey CNP Work Phone: [facility] Work Phone: 07-19-2023 11:41-0500 Body weight 96.62 kg Kassy Grey CNP Work Phone: [facility] Work Phone: 07-19-2023 11:41-0500 Diastolic blood pressure 70 mm[Hg] Kassy Grey TREASURY SPECIALIST Work Phone: [facility] Work Phone: 07-19-2023 11:41-0500 Heart rate 64 /min Kassy Grey TREASURY SPECIALIST Work Phone: [facility] Work Phone: 07-19-2023 11:41-0500 SaO2% (BldA) [Mass fraction] 96 % Kassy Grey TREASURY SPECIALIST Work Phone: [facility] Work Phone: 07-19-2023 11:41-0500 Systolic blood pressure 109 mm[Hg] Kassy Grey TREASURY SPECIALIST Work Phone: [facility] Work Phone: 07-16-2023 11:00-0500 Body height 175.26 cm Azbarbara Bakjamis Other [employer] Other 07-16-2023 11:00-0500 Body mass index (BMI) [Ratio] 31.33 kg/m2 Azbarbara [employer] Other [employer] Other 07-16-2023 11:00-0500 Body temperature 96.9 [degF] Aziz Bakhous Other [employer] Other 07-16-2023 11:00-0500 Body weight 96.25 kg Aziz Bakhous Other [employer] Other 07-16-2023 11:00-0500 Diastolic blood pressure 70 mm[Hg] Aziz Vistar [employer] Other [employer] Other 07-16-2023 11:00-0500 Respiratory rate 18 /min Aziz Bakhous Other [employer] Other 07-16-2023 11:00-0500 SaO2% (BldA) [Mass fraction] 95 % Aziz Bakhous Other [employer] Other 07-16-2023 11:00-0500 Systolic blood pressure 110 mm[Hg] Aziz Bakhous Other [facility] [employer] Other 07-08-2023 13:48-0500 Blood Pressure Location Lanny Orzech [facility] 07-08-2023 13:48-0500 Diastolic blood pressure 62 mm[Hg] Lanny Orzech [facility] 07-08-2023 13:48-0500 Heart rate 58 /min Lanny Orzech [facility] 07-08-2023 13:48-0500 Systolic blood pressure 130 mm[Hg] Lanny Orzech [facility] 04-19-2023 11:38-0400 Body height 175.26 cm Kassy Grey TREASURY SPECIALIST Work Phone: [facility] Work Phone: 04-19-2023 11:38-0400 Body mass index (BMI) [Ratio] 31.2 kg/m2 Kassy Grey TREASURY SPECIALIST Work Phone: [facility] Work Phone: 04-19-2023 11:38-0400 Body surface area Derived from formula 2.1 m2 Kassy Grey CNP Work Phone: [facility] Work Phone: 04-19-2023 11:38-0400 Body weight 95.71 kg Kassy Grey CNP Work Phone: [facility] Work Phone: 04-19-2023 11:38-0400 Diastolic blood pressure 69 mm[Hg] Kassy Grey CNP Work Phone: [facility] Work Phone: 04-19-2023 11:38-0400 Heart rate 60 /min Kassy Grey CNP Work Phone: [facility] Work Phone: 04-19-2023 11:38-0400 SaO2% (BldA) [Mass fraction] 95 % Kassy Grey CNP Work Phone: [facility] Work Phone: 04-19-2023 11:38-0400 Systolic blood pressure 116 mm[Hg] Kassy Grey CNP Work Phone: [facility] Work Phone: 03-12-2023 11:20-0400 Body height 175.26 cm Braulio MontoyaMersana [employer] Other [employer] Other 03-12-2023 11:20-0400 Body mass index (BMI) [Ratio] 32.1 kg/m2 Azbarbara [employer] Other [employer] Other 03-12-2023 11:20-0400 Body temperature 96.3 [degF] Azbarbara [employer] Other [employer] Other 03-12-2023 11:20-0400 Body weight 98.61 kg Azbarbara [employer] Other [employer] Other 03-12-2023 11:20-0400 Diastolic blood pressure 59 mm[Hg] Aziz [employer]ana [employer] Other [employer] Other 03-12-2023 11:20-0400 Respiratory rate 18 /min Azbarbara [employer] Other [employer] Other 03-12-2023 11:20-0400 SaO2% (BldA) [Mass fraction] 96 % Azbarbara [employer] Other [employer] Other 03-12-2023 11:20-0400 Systolic blood pressure 125 mm[Hg] Braulio Linares Other [employer] Other 01-16-2023 13:17-0400 Body height 175.26 cm Kassy Grey TREASURY SPECIALIST Work Phone: [facility] Work Phone: 01-16-2023 13:17-0400 Body mass index (BMI) [Ratio] 31.7 kg/m2 Kassy Grey TREASURY SPECIALIST Work Phone: [facility] Work Phone: 01-16-2023 13:17-0400 Body surface area Derived from formula 2.1 m2 Kassy Grey CNP Work Phone: [facility] Work Phone: 01-16-2023 13:17-0400 Body temperature 97.8 [degF] Kassy Grey CNP Work Phone: [facility] Work Phone: 01-16-2023 13:17-0400 Body weight 97.52 kg Kassy Grey CNP Work Phone: [facility] Work Phone: 01-16-2023 13:17-0400 Diastolic blood pressure 72 mm[Hg] Kassynicole Grey TREASURY SPECIALIST Work Phone: [facility] Work Phone: 01-16-2023 13:17-0400 Heart rate 66 /min Kassy Grey TREASURY SPECIALIST Work Phone: [facility] Work Phone: 01-16-2023 13:17-0400 Respiratory rate 16 /min Kassy Grey TREASURY SPECIALIST Work Phone: [facility] Work Phone: 01-16-2023 13:17-0400 SaO2% (BldA) [Mass fraction] 92 % Kassy Grey TREASURY SPECIALIST Work Phone: [facility] Work Phone: 01-16-2023 13:17-0400 Systolic blood pressure 118 mm[Hg] Kassy Grey TREASURY SPECIALIST Work Phone: [facility] Work Phone: 09-07-2022 11:44-0400 Blood Pressure Location Jose MUHAMMAD [facility] 09-07-2022 11:44-0400 Diastolic blood pressure 74 mm[Hg] Jose MUHAMMAD [facility] 09-07-2022 11:44-0400 Heart rate 68 /min Jose MUHAMMAD [facility] 09-07-2022 11:44-0400 Respiratory rate 16 /min Jose MUHAMMAD [facility] 09-07-2022 11:44-0400 Systolic blood pressure 128 mm[Hg] Jose MUHAMMAD [facility] 07-03-2022 14:40-0500 Body height 175.26 cm [employer] Other [employer] [facility] [employer] Other 07-03-2022 14:40-0500 Body mass index (BMI) [Ratio] 32.4 kg/m2 [employer] Other [employer] [facility] [employer] Other 07-03-2022 14:40-0500 Body temperature 96.5 [degF] [employer] Other [employer] Other 07-03-2022 14:40-0500 Body weight 99.52 kg Braulio Linares Other [employer] Other 07-03-2022 14:40-0500 Diastolic blood pressure 70 mm[Hg] Braulio Linares Other [employer] Other 07-03-2022 14:40-0500 Respiratory rate 18 /min Braulio Linares Other [employer] Other 07-03-2022 14:40-0500 SaO2% (BldA) [Mass fraction] 97 % Braulio Linares Other [employer] Other 07-03-2022 14:40-0500 Systolic blood pressure 120 mm[Hg] Braulio Linares Other [employer] Other Encounters Encounter Date Encounter Type Care Provider Facility Start: 12-12-2023 End: 12-12-2023 ambulatory MD Jena Nix Work Phone: [facility] Work Phone: Start: 12-12-2023 End: 12-12-2023 Departed Referred MD Jena Nix Work Phone: [facility] Start: 12-12-2023 ambulatory Jose MUHAMMAD Facili ty:[id number] Start: 12-10-2023 End: 12-10-2023 ambulatory KARLA HAYNES Not Available Start: 11-22-2023 End: 11-22-2023 Lab Drop off Jose MUHAMMAD [facility] Start: 11-22-2023 End: 11-22-2023 ambulatory Jose MUHAMMAD Facility[facility] Start: 11-22-2023 End: 11-22-2023 Patient encounter procedure Jose MUHAMMAD [facility] [place] Start: 11-19-2023 End: 11-19-2023 ambulatory [facility] Work Phone: Start: 11-19-2023 End: 11-19-2023 Patient encounter procedure [facility] Physician [facility] [place] Work Phone: Start: 11-01-2023 End: 11-01-2023 ambulatory Jose MUHAMMAD Facility: [place] Start: 11-01-2023 End: 11-01-2023 Patient encounter procedure Jose MUHAMMAD [facility] [place] Start: 10-29-2023 End: 10-29-2023 ambulatory [facility] Start: 10-24-2023 End: 10-24-2023 ambulatory JENA Bonilla BOYD Not Available Start: 10-22-2023 End: 10-22-2023 ambulatory KAT UNDERWOOD Not Available Start: 10-21-2023 End: 10-21-2023 Encounter for preprocedural laboratory examination Kassy Grey CNP Work Phone: [facility] Work Phone: Start: 10-21-2023 End: 10-21-2023 [facility]QHC visit, estab pt Kassy Grey CNP Work Phone: [facility] Work Phone: Start: 10-02-2023 End: 11-06-2023 Pre-admission assessment Jose MUHAMMAD [facility] Start: 09-24-2023 End: 09-24-2023 ambulatory Lanny X Orzech Facility[facility] Start: 09-24-2023 End: 09-24-2023 Lab Drop off Lanny X Orzech [facility] Start: 09-24-2023 End: 09-24-2023 ambulatory Lanny De La Cruz Facility:[facility] Start: 09-24-2023 End: 09-24-2023 Patient encounter procedure Lanny De La Cruz [facility] Start: 09-02-2023 End: 09-02-2023 ambulatory MANUEL GRACE Not Available Start: 08-20-2023 End: 08-20-2023 ambulatory RUGEN M BOYD Not Available Start: 08-09-2023 End: 08-09-2023 ambulatory KARLA HAYNES Not Available Start: 07-23-2023 End: 07-23-2023 ambulatory Jose MUHAMMAD Facility:[facility] [place] Start: 07-23-2023 End: 07-23-2023 Patient encounter procedure [facility]HAMMAD [facility] Start: 07-22-2023 End: 07-22-2023 ambulatory RUGEN M BOYD Not Available Start: 07-19-2023 End: 07-19-2023 FQHC visit, estab pt Kassy Grey CNP Work Phone: [facility] Work Phone: Start: 07-16-2023 End: 07-16-2023 ambulatory Braulio Linares Other [employer] Other Start: 07-16-2023 Office outpatient vi sit 25 minutes Braulio Linares [facility] [place] Start: 07-15-2023 End: 07-15-2023 ambulatory Jose MUHAMMAD Facility:[facility] Start: 07-15-2023 End: 07-15-2023 Patient encounter procedure Jose MUHAMMAD [facility] Start: 07-11-2023 End: 07-11-2023 Emergency department patient visit JENA NIX [facility] Start: 07-10-2023 End: 07-11-2023 Emergency department patient visit [facility] Start: 07-10-2023 End: 07-11-2023 Emergency department patient visit [facility] Start: 07-08-2023 End: 07-08-2023 ambulatory Lanny X Orzech Facility:[facility] [place] Start: 07-08-2023 End: 07-08-2023 Patient encounter procedure Lanny X Orzech [facility] [place] Start: 04-01-2023 End: 04-01-2023 ambulatory Jose MUHAMMAD Facility: [place] Start: 03-12-2023 End: 03-12-2023 ambulatory Braulio Linares Other [employer] Other Start: 03-12-2023 Office outpatient vi sit 25 minutes Braulio Linares [facility] [place] Start: 01-16-2023 End: 01-16-2023 [facility]QHC visit new patient Kassy Grey ORQUIDEA Work Phone: [facility] Work Phone: Start: 01-16-2023 End: 04-19-2023 FQHC visit, estab pt Kassy Que HEARD Work Phone: [facility] Work Phone: Start: 01-11-2023 ambulatory Kassy Que HEARD [facility] Start: 10-02-2022 End: 10-02-2022 Patient encounter procedure Jose MUHAMMAD [facility] Start: 09-21-2022 End: 09-21-2022 Lab Drop off Jose MUHAMMAD [facility] Start: 09-21-2022 End: 09-21-2022 Patient encounter procedure JENA NIX [facility] Start: 09-20-2022 End: 09-20-2022 ambulatory Aziz Bakhous Other [employer] Other Start: 09-20-2022 Telephone encounter Aziz Bakhous [facility] Start: 09-07-2022 End: 09-07-2022 Lab Drop off Jose MUHAMMAD [facility] Start: 09-07-2022 End: 09-07-2022 Patient encounter procedure Jose MUHAMMAD [facility] Start: 07-03-2022 End: 07-03-2022 ambulatory Aziz Bakhous Other [employer] Other Start: 07-03-2022 Office outpatient vi sit 25 minutes Aziz Bakhous [facility] [place] Start: 04-13-2022 End: 04-13-2022 ambulatory Aziz Bakhous Other [employer] Other Start: 04-13-2022 Telephone encounter Aziz Bakhous [facility] Procedures Date Procedure Procedure Detail Performing Clinician Start: 10-29-2023 Follow-up visit Follow-up AGAPITO KIM Start: 10-21-2023 Behav assmt w/score & docd/stand instrument Kassy Grey CNP Work Phone: Start: 10-21-2023 Collection venous blood venipuncture Kassy Grey CNP Work Phone: Start: 10-21-2023 Current tobacco non-user cad cap copd pv dm Kassy Grey CNP Work Phone: Start: 10-21-2023 Depression screening Visit For: Screening Exam Depression Kassy Grey CNP Work Phone: Start: 10-21-2023 FQHC visit, estab pt Kassy Grey TREASURY SPECIALIST Work Phone: Start: 10-21-2023 Hemoglobin glycosylated a1c Kassy alvares TREASURY SPECIALIST Work Phone: Start: 10-21-2023 Hyperlipidemia screening Visit For: Screening Exam Lipoid Disorders Kassy Grey CNP Work Phone: Start: 10-21-2023 Most recent diastolic blood pressure < 80 mm hg Kassy Grey CNP Work Phone: Start: 10-21-2023 Most recent hemoglobin a1c level < 7.0% Kassy Grey CNP Work Phone: Start: 10-21-2023 Most recent systolic blood pressure <130 mm hg Kassy Grey CNP Work Phone: Start: 07-19-2023 Current tobacco non-user cad cap copd pv dm Kassy Grey TREASURY SPECIALIST Work Phone: Start: 07-19-2023 Gluc bld gluc mntr dev cleared fda spec home use Kassy Grey CNP Work Phone: Start: 07-19-2023 Most recent diastolic blood pressure < 80 mm hg Kassy Grey CNP Work Phone: Start: 07-19-2023 Most recent hemoglobin a1c level < 7.0% Kassy Grey CNP Work Phone: Start: 07-19-2023 Most recent systolic blood pressure <130 mm hg Kassy Grey CNP Work Phone: Start: 04-19-2023 Gluc bld gluc mntr dev cleared fda spec home use Kassy Grey CNP Work Phone: Start: 04-19-2023 Most recent diastolic blood pressure < 80 mm hg Kassy Grey CNP Work Phone: Start: 04-19-2023 Most recent hemoglobin a1c level < 7.0% Kassy Grey CNP Work Phone: Start: 04-19-2023 Most recent systolic blood pressure <130 mm hg Kassy Grey TREASURY SPECIALIST Work Phone: Start: 01-16-2023 Coronary artery bypass graft Kassy Grey TREASURY SPECIALIST Work Phone: Start: 01-16-2023 Hemoglobin glycosylated a1c Kassy Kearns nce TREASURY SPECIALIST Work Phone: Start: 01-16-2023 Hepatitis c antibody Kassy Grey TREASURY SPECIALIST Work Phone: Start: 01-16-2023 Most recent diastolic blood pressure < 80 mm hg Kassy Grey TREASURY SPECIALIST Work Phone: Start: 01-16-2023 Most recent hemoglobin a1c level < 7.0% Kassy Grey TREASURY SPECIALIST Work Phone: Start: 01-16-2023 Most recent systolic blood pressure <130 mm hg Kassy Grey TREASURY SPECIALIST Work Phone: Start: 01-16-2023 Pt-focused hlth risk assmt score doc stnd instrm Kassy Grey TREASURY SPECIALIST Work Phone: Start: 01-16-2023 Surgical procedure Kassy Grey TREASURY SPECIALIST Work Phone: Start: 01-16-2023 Urine albumin quantitative Kassy Rangel ce TREASURY SPECIALIST Work Phone: Start: 10-02-2022 Transurethral cystoscopy Lanny De La Cruz Start: 06-28-2020 Cystoscopy Jose MUHAMMAD Start: 06-24-2002 Brachytherapy of prostate using fluoroscopic guidance Jose MUHAMMAD Appendectomy Jose MUHAMMAD Catheterization of l eft heart Jose MUHAMMAD Coronary artery bypa ss graft Jose MUHAMMAD History of hernia repair Yumiko MUHAMMAD Tonsillectomy Jose MUHAMMAD Plan of Treatment Date Care Activity Detail Author Start: 03-30-2024 ambulatory Ambulatory Facility:[facility] Start: 01-20-2024 FQHC visit, estab pt Medical E stablished Patient [facility] Work Phone: Start: 12-20-2023 ambulatory Ambulatory Facility:[facility] Start: 10-21-2023 FQHC visit, estab pt Medical E stablished Patient [facility] Work Phone: Start: 10-21-2023 End: 10-21-2023 Patient education based on identified need [facility] Start: 07-19-2023 FQHC visit, estab pt Medical E stablished Patient [facility] Work Phone: Start: 07-19-2023 End: 07-19-2023 Patient education based on identified need [facility] Start: 04-19-2023 End: 04-19-2023 Patient education based on identified need [facility] Start: 04-18-2023 FQHC visit, estab pt Medical E stablished Patient [facility] Work Phone: Start: 01-16-2023 End: 01-16-2023 Patient education based on identified need [facility] Renal function 2000 panel - Serum or Plasma [facility] Immunizations Immunization Date Immunization Notes Care Provider Maeve agarwal 04-24-2023 influenza virus vaccine, unspecified formulation Lanny De La Cruz [facility] 04-03-2022 High Dose Fluzone- 6 5 yrs and Older Kassy Grey CNP Work Phone: [facility] 04-03-2022 influenza virus vaccine, unspecified formulation Jose MUHAMMAD [facility] 05-08-2021 SARS-CoV-2 (COVID-19 ) mRNA [id number] vax Jose MUHAMMAD [facility] Comment on above: Result Comment: 2022: [id number] 05-04-2021 influenza virus vaccine, unspecified formulation Jose MUHAMMAD [facility] [facility] 05-04-2021 influenza, high dose seasonal, preservative-free Kassy Grey TREASURY SPECIALIST Work Phone: [facility] 05-03-2021 influenza virus vaccine, unspecified formulation Jose MUHAMMAD [facility] 08-11-2020 SARS-CoV-2 (COVID-19 ) mRNA-1273 vaccine Jose [employer] [facility] Comment on above: Result Comment: 2022: [id number] 08-03-2020 SARS-CoV-2 (COVID-19 ) Ad26 vaccine, recombinant Jose MUHAMMAD [facility] 07-15-2020 SARS-CoV-2 (COVID-19 ) mRNA-1273 vaccine Jose [employer] [facility] Comment on above: Result Comment: 2022: [id number] 06-30-2020 SARS-CoV-2 (COVID-19 ) Ad26 vaccine, recombinant Jose MUHAMMAD [facility] 05-02-2020 influenza virus vaccine, unspecified formulation Jose MUHAMMAD [facility] 04-13-2020 High Dose Fluzone- 6 5 yrs and Older Kassy Grey TREASURY SPECIALIST Work Phone: [facility] 04-13-2020 influenza virus vaccine, unspecified formulation Jose MUHAMMAD [facility] 04-04-2020 influenza virus vaccine, unspecified formulation Jose MUHAMMAD [facility] 04-01-2019 influenza virus vaccine, unspecified formulation Jose MUHAMMAD [facility] 04-01-2019 influenza, high dose seasonal, preservative-free Kassy Grey TREASURY SPECIALIST Work Phone: [facility] 04-01-2018 influenza virus vaccine, unspecified formulation Jose MUHAMMAD [facility] 04-01-2018 influenza, high dose seasonal, preservative-free Kassy Grey TREASURY SPECIALIST Work Phone: [facility] 04-01-2017 influenza virus vaccine, unspecified formulation Jose MUHAMMAD [facility] 04-01-2017 influenza, high dose seasonal, preservative-free Kassy Grey TREASURY SPECIALIST Work Phone: [facility] 04-25-2016 influenza virus vaccine, unspecified formulation Jose MUHAMMAD [facility] 04-25-2016 influenza, injectabl e, quadrivalent, preservative free Kassy Grey TREASURY SPECIALIST Work Phone: [facility] 10-04-2015 pneumococcal conjuga te vaccine, 13 valent Jose MUHAMMAD [facility] 09-08-2015 tetanus toxoid, redu carmen diphtheria toxoid, and acellular pertussis vaccine, adsorbed Jose MUHAMMAD [facility] 07-13-2010 tetanus and diphther ia toxoids, adsorbed, preservative free, for adult use (2 Lf of tetanus toxoid and 2 Lf of diphtheria toxoid) Jose MUHAMMAD [facility] 07-13-2010 tetanus and diphther ia toxoids, adsorbed, preservative free, for adult use (5 Lf of tetanus toxoid and 2 Lf of diphtheria toxoid) Kassy Grey TREASURY SPECIALIST Work Phone: [facility] Payers Date Payer Category Payer Self-pay 2020 Medicare [id number] 2. [id number] 1940 Unknown [id number] 2.16.8 40.1.431785.3.579.2.1286 1939 Unknown [id number] 2.16.84 0.1.902462.3.579.2.1286 1939 Unknown [id number] 2.16.84 0.1.484885.3.579.2.1286 1939 Unknown [id number] 2.16.84 0.1.684688.3.579.2.1286 1939 Unknown [id number] 2.16.84 0.1.596538.3.579.2.1286 1939 Unknown [id number] 2.16.84 0.1.735235.3.579.2.1259 1939 Unknown [id number] 2.16.84 0.1.152553.3.579.2.1259 1939 Unknown [id number] 2.16.84 0.1.458192.3.579.2.1259 1939 Unknown [id number] 2.16.84 0.1.771062.3.579.2.1259 1939 Unknown [id number] 2.16.84 0.1.417322.3.579.2.1259 1939 Unknown [id number] 2.16.84 0.1.966567.3.579.2.1259 1939 Unknown [id number] 2.16.84 0.1.346445.3.579.2.1259 1939 Unknown [id number] 2.16.8 40.1.264375.3.579.2.727 1939 Unknown [id number] 2.16.8 40.1.307616.3.579.2.727 1939 Unknown [id number] 2.16.8 40.1.863071.3.579.2.727 1939 Unknown [id number] 2.16.8 40.1.019031.3.579.2.727 1939 Unknown [id number] 2.16.8 40.1.215921.3.579.2.727 1939 Unknown [id number] 2.16.8 40.1.493731.3.579.2.727 1939 Unknown [id number] 2.16.8 40.1.788824.3.579.2.727 1939 Unknown [id number] 2.16.8 40.1.534044.3.579.2.727 1939 Unknown [id number] 2.16.8 40.1.495657.3.579.2.727 1939 Unknown [id number] 2.16.8 40.1.326412.3.579.2.727 1939 Unknown [id number] 2.16.8 40.1.173703.3.579.2.727 Unknown [id number] 2.16.8 40.1.211575.3.579.2.531 Social History Date Type Detail Facility Unknown if ever smoked [facility] Other Sex Assigned At [facility] Start: 09-07-2022 End: 11-19-2023 Tobacco smoking status Ex-smoker (finding) [facility] Tobacco smoking status Never [facility] Assertion Currently not sexually active (finding) [facility] Assertion Gender identity finding (finding) [facility] Assertion Finding of sexua l orientation (finding) [facility] Tobacco smoking status Unknown if ever smoked [facility] Work Phone: Assertion Sexually active (finding) [facility] Start: 1940 Sex Assigned At Male [facility] NEGATED: Highlighted row Assertion Finding relating to drug misuse behavior (finding) [facility] NEGATED: Highlighted row Assertion Exposure to pollution (event) [facility] NEGATED: Highlighted row Assertion [facility] NEGATED: Highlighted row Assertion Current drinker of alcohol (finding) [facility] NEGATED: Highlighted row Assertion Sexually active (finding) [facility] Functional Status Date Assessment Result Facility 11-01-2023 Functional Status N/A [facility] 09-24-2023 Functional Status N/A [facility] 07-08-2023 Functional Status N/A [facility] 09-07-2022 Functional Status N/A [facility] Mental Status Date Assessment Result Facility Cognitive function Oriented to t reny, place, and person Oriented to person, time and place (finding) [facility] Work Phone: Clinical Notes 04-13-2022 to [...] including vitamins, herbs, eye drops, creams, and yghs-yhz-lilxehz medicines. Any problems you or family members [...] provider tells you to take them. Taking dxbk-eyu-rgsewja medicines, vitamins, herbs, and supplements. General instructions [...] provider. Document Revised: 06/15/2022 Document Reviewed: 06/15/2022 Personal Medicine Patient Education 2022 [employer]. Follow Up Care 10/14/2023 12:42:46 With:MELISA QUEVEDO, Jose Desai, URL Address: [address] [place] [address] [place] [address]- When: Unknown [facility] 10-21-2023 Evaluation note Includes: Assessments for all patient encounters Findings [Z68.31 - Body mass index [BMI] 31.0-31.9, adult] assessment of body mass index Medical Established Patient with Kassy Grey [facility] 10/21/2023 Last Documented On 4 12:12PM ; [facility] Chronic kidney disease, stage 4 Medical Established Patient with Kassy Grey [facility] 10/21/2023 Last Documented On 4 12:12PM ; [facility] Essential hypertension Medical Establish ed Patient with Kassy Grey [facility] 10/21/2023 Last Documented On 4 12:12PM ; [facility] Type 2 diabetes mellitus wit hout complication Medical Established Patient with Kassy Grey [facility] 10/21/2023 Last Documented On 4 12:12PM ; [facility] Venipuncture was performed Medical Estab lished Patient with Kassy Grey [facility] 10/21/2023 Last Documented On 4 12:12PM ; [facility] Visit for: screening for depression [facility] Established Patient with Kassy Grey [facility] 10/21/2023 Last Documented On 4 12:12PM ; [facility] Visit for: screening for lip oid disorders Medical Established Patient with Kassy Grey [facility] 10/21/2023 Last Documented On 4 12:12PM ; [facility] [Z68.31 - Body mass index [B AL] 31.0-31.9, adult] assessment of body mass index Medical Established Patient with Kassy Grey [facility] 07/19/2023 Last Documented On 4 8:38AM ; [facility] Essential hypertension Medical Establish ed Patient with Kassy Grey TREASURY SPECIALIST 07/19/2023 Last Documented On 4 8:38AM ; [facility] Type 2 diabetes mellitus wit hout complication Medical Established Patient with Kassy Grey TREASURY SPECIALIST 07/19/2023 Last Documented On 4 8:38AM ; [facility] [Z68.31 - Body mass index [B AL] 31.0-31.9, adult] assessment of body mass index Medical Established Patient with Kassy Grey TREASURY SPECIALIST 04/19/2023 Last Documented On 3 9:11AM ; [facility] Chronic kidney disease, stage 4 Medical Established Patient with Kassynicole Grey TREASURY SPECIALIST 04/19/2023 Last Documented On 3 9:11AM ; [facility] Essential hypertension Medical Establish ed Patient with Kassy Grey TREASURY SPECIALIST 04/19/2023 Last Documented On 3 9:11AM ; [facility] Type 2 diabetes mellitus wit hout complication Medical Established Patient with Kassy Grey TREASURY SPECIALIST 04/19/2023 Last Documented On 3 9:11AM ; [facility] [Z68.31 - Body mass index [B AL] 31.0-31.9, adult] assessment of body mass index Medical New Patient with Kassy Grey TREASURY SPECIALIST 01/16/2023 Last Documented On 3 11:57AM ; [facility] Chronic kidney disease, stage 4 Medical New Patient with Kassy Grey TREASURY SPECIALIST 01/16/2023 Last Documented On 3 11:57AM ; [facility] Diabetes Risk Test Score was eight score 01/16/2023 Medical New Patient with Kassy Grey TREASURY SPECIALIST 01/16/2023 Last Documented On 3 11:57AM ; [facility] Essential hypertension Medical New Patient with Kassy Grey TREASURY SPECIALIST 01/16/2023 Last Documented On 3 11:57AM ; [facility] Screening for HIV Medical New Patient with Urban nicole Grey TREASURY SPECIALIST 01/16/2023 Last Documented On 3 11:57AM ; [facility] Type 2 diabetes mellitus wit hout complication Medical New Patient with Kassynicole Grey TREASURY SPECIALIST 01/16/2023 Last Documented On 3 11:57AM ; [facility] Visit for: screening for dig estive system disorders Medical New Patient with Kassy Grey [place] 01/16/2023 Last Documented On 3 11:57AM ; [facility] Work Phone: 1(516) 666-527204-29-2024 Progress note* Progress note Date Encounter Last Documented by 10/21/2023 Medical Established Patient Last documented on 10/23/2023; 12:12 PM, Kassy Grey ORQUIDEA; [facility] Active Problems & Conditions - N18.4 [...] previous hospitalizations. A recent examination by an rubber covering machine operator 03/08/2023 no diabetic retinopathy. Immunization History: Recent [...] 10/21/2023 11:12 am BP-Sitting R124/72 mmHg Pulse Rate-Nrxolvk58 bpm Gfrikp78 in Wnigbq153 lbs 12.8 oz Body Mass Index31.1 kg/m2 Body Surface Area2.1 m2 Oxygen Jstzjnijzp56 % Vital Signs: - Systolic blood pressure [...] + 0 pt : Not at all. [facility]04-29-2024 Instructions Includes: Instructions for all patient encounters Education and Decision Aids were provided during visit for: Discussed nutritional needs teach healthy choices including fruits and vegetables Last Documented On 4 11:17AM ; [facility] Patient education about a pr oper diet Last Documented On 4 11:17AM ; [facility] Discussed concerns about exe rcise : promote physical activity Last Documented On 4 11:17AM ; [facility] Referred patient to a diabet es prevention program Last Documented On 4 11:33AM ; [facility] Discussed nutritional needs teach healthy choices including fruits and vegetables Last Documented On 4 11:44AM ; [facility] Patient education about a pr oper diet Last Documented On 4 11:44AM ; [facility] Discussed concerns about exe rcise : promote physical activity Last Documented On 4 11:44AM ; [facility] Referred Patient to a Diabet es Self-Management Program Last Documented On 4 11:57AM ; [facility] Discussed nutritional needs teach healthy choices including fruits and vegetables Last Documented On 3 11:42AM ; [facility] Patient education about a pr oper diet Last Documented On 3 11:42AM ; [facility] Discussed concerns about exe rcise : promote physical activity Last Documented On 3 11:42AM ; [facility] Referred patient to a diabet es prevention program Last Documented On 3 11:53AM ; [facility] Discussed nutritional needs teach healthy choices including fruits and vegetables Last Documented On 3 1:20PM ; [facility] Patient education about a pr oper diet Last Documented On 3 1:20PM ; [facility] Discussed concerns about exe rcise : promote physical activity Last Documented On 3 1:20PM ; [facility] Referred Patient to a Diabet es Self-Management Program Last Documented On 3 1:43PM ; [facility] Work Phone: 1(304) 721-107404-02-2024 Hospital Discharge instructions Patient Education 09/24/2023 16:56:30 [...] urethra. Follow these instructions at home: Take llsm-ygq-nbdhwmw and prescription medicines only as told by [...] provider. Document Revised: 12/27/2021 Document Reviewed: 12/27/2021 Personal Medicine Patient Education 2022 [employer] 09/24/2023 16:56:29 Urinary Incontinence Urinary Incontinence Urinary [...] nerve stimulation). ?For women, using a medical claims processor to prevent urine leaks. This is a [...] right after experiencing incontinence. General instructions Take jkbx-jvq-cnqgnte and prescription medicines only as told by [...] important. Where to find more information [employer] Diabetes and Digestive and Kidney Diseases: www.niddk.nih.gov [employer]: www.urologyhealth.org Contact a health care [...] provider. Document Revised: 01/13/2021 Document Reviewed: 01/13/2021 Personal Medicine Patient Education 2022 [employer]. 09/24/2023 16:56:25 Overactive Bladder, Adult Overactive Bladder, [...] your health care provider. General instructions Take srjw-ajm-vojaqsz and prescription medicines only as told by [...] provider. Document Revised: 02/27/2021 Document Reviewed: 02/27/2021 Personal Medicine Patient Education 2022 [employer]. 09/24/2023 16:56:24 Hematuria, Adult Hematuria, Adult Hematuria [...] Follow these instructions at home: Medicines Take snac-uxx-wcsgufj and prescription medicines only as told by [...] or the blood stops without treatment. Take ukbg-zzm-dfngfri and prescription medicines only as told by your health care provider. Drink enough fluid to keep your urine pale yellow. This information is not intended to replace advice given to you by your health care provider. Make sure you discuss any questions you have with your health care provider. Document Revised: 02/08/2021 Document Reviewed: 02/08/2021 Personal Medicine Patient Education 2022 [employer]. [facility] 01-26-2024 Evaluation note Includes: Assessments for all patient encounters Findings Encounter Date [Z68.31 - Body mass index [B AL] 31.0-31.9, adult] assessment of body mass index Medical Established Patient with Kassy Grey [facility] 07/19/2023 Last Documented On 4 8:38AM ; [facility] Essential hypertension Medical Establish ed Patient with Kassy Grey [facility] 07/19/2023 Last Documented On 4 8:38AM ; [facility] Type 2 diabetes mellitus wit hout complication Medical Established Patient with Kassy Grey [facility] 07/19/2023 Last Documented On 4 8:38AM ; [facility] [Z68.31 - Body mass index [B AL] 31.0-31.9, adult] assessment of body mass index Medical Established Patient with Kassy Grey TREASURY SPECIALIST 04/19/2023 Last Documented On 3 9:11AM ; [facility] Chronic kidney disease, stage 4 Medical Established Patient with Kassy Grey TREASURY SPECIALIST 04/19/2023 Last Documented On 3 9:11AM ; [facility] Essential hypertension Medical Establish ed Patient with Kassy Grey TREASURY SPECIALIST 04/19/2023 Last Documented On 3 9:11AM ; [facility] Type 2 diabetes mellitus wit hout complication Medical Established Patient with Kassy Grey TREASURY SPECIALIST 04/19/2023 Last Documented On 3 9:11AM ; [facility] [Z68.31 - Body mass index [B AL] 31.0-31.9, adult] assessment of body mass index Medical New Patient with Kassy Grey TREASURY SPECIALIST 01/16/2023 Last Documented On 3 11:57AM ; [facility] Chronic kidney disease, stage 4 Medical New Patient with Kassy Grey TREASURY SPECIALIST 01/16/2023 Last Documented On 3 11:57AM ; [facility] Diabetes Risk Test Score was eight score 01/16/2023 Medical New Patient with Kassy Grey TREASURY SPECIALIST 01/16/2023 Last Documented On 3 11:57AM ; [facility] Essential hypertension Medical New Patient with Kassy Grey TREASURY SPECIALIST 01/16/2023 Last Documented On 3 11:57AM ; [facility] Screening for HIV Medical New Patient with Urban Grey TREASURY SPECIALIST 01/16/2023 Last Documented On 3 11:57AM ; [facility] Type 2 diabetes mellitus wit hout complication Medical New Patient with Kassy Grey TREASURY SPECIALIST 01/16/2023 Last Documented On 3 11:57AM ; [facility] Visit for: screening for dig estive system disorders Medical New Patient with Kassy Grey TREASURY SPECIALIST 01/16/2023 Last Documented On 3 11:57AM ; [facility] Work Phone: 1(372) 141-676401-26-2024 Progress note* Progress note Date Encounter Last Documented by 07/19/2023 Medical Established Patient Last documented on 07/23/2023; 8:38 AM, Kassy Grey TREASURY SPECIALIST; [facility] Active Problems & Conditions - N18.4 - Chronic Kidney Disease Stage 4 - E11.9 - Diabetes Mellitus Type 2 Without Complication - I10 - Essential Hypertension Chief Complaint The Chief Complaint is: Pt here for f/u to get refills of Farxiga. Pt has PCP and sees him on Saturday. Last diabetic eye exam 3 months ago in [place] at [facility], called and asked them to fax [...] previous hospitalizations. A recent examination by an rubber covering machine operator 03/08/2023 no diabetic retinopathy. Immunization History: Recent [...] 07/19/2023 11:41 am BP-Sitting R109/70 mmHg Pulse Rate-Luweumg74 bpm Hyjhhv89 in Svzuxi683 lbs Body Mass Index31.5 kg/m2 Body Surface Area2.1 m2 Oxygen Njsqvxffim64 % Vital Signs: - Systolic blood pressure [...] needed clothing: No, unable to get needed child protective services social worker: No, unable to get needed phone: No, [...] a week. MARSHALL-2 score was 0 07/19/2023, MARHSALL-7 score [MARSHALL-7] Feeling nervous, anxious or on [...] + 0 pt : Not at all. [facility]01-26-2024 Instructions Includes: Instructions for all patient encounters Education and Decision Aids were provided during visit for: Discussed nutritional needs teach healthy choices including fruits and vegetables Last Documented On 4 11:44AM ; [facility] Patient education about a pr oper diet Last Documented On 4 11:44AM ; [facility] Discussed concerns about exe rcise : promote physical activity Last Documented On 4 11:44AM ; [facility] Referred Patient to a Diabet es Self-Management Program Last Documented On 4 11:57AM ; [facility] Discussed nutritional needs teach healthy choices including fruits and vegetables Last Documented On 3 11:42AM ; [facility] Patient education about a pr oper diet Last Documented On 3 11:42AM ; [facility] Discussed concerns about exe rcise : promote physical activity Last Documented On 3 11:42AM ; [facility] Referred patient to a diabet es prevention program Last Documented On 3 11:53AM ; [facility] Discussed nutritional needs teach healthy choices including fruits and vegetables Last Documented On 3 1:20PM ; [facility] Patient education about a pr oper diet Last Documented On 3 1:20PM ; [facility] Discussed concerns about exe rcise : promote physical activity Last Documented On 3 1:20PM ; [facility] Referred Patient to a Diabet es Self-Management Program Last Documented On 3 1:43PM ; [facility] Work Phone: 1(557) 895-482901-23-2024 Evaluation note* Encounter Date Diagnosis Assessment Notes Treatment Notes Treatment Clinical Notes Jun, Chronic kidney disease, stage IV (severe) (ICD-10 - N18.4) 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 Serum creatinine is at baseline is 2.0-2.2 mg/dl .SCr was up to 2.9 mg/dl while on ACEI. Pro/Cr < 500 mg/g. No compelling reason to add ACEI. He is alreading on Blood pressure is well controlled Volume status [...] WNL. Continue OTC VD 2000 U DAILY [facility] Other 01-15-2024 Hospital Discharge instructions Patient Education [...] your health care provider. General instructions Take cawi-kfo-xqxnlux and prescription medicines only as told by [...] provider. Document Revised: 02/27/2021 Document Reviewed: 02/27/2021 Personal Medicine Patient Education 2022 [employer]. 07/08/2023 14:39:28 Hematuria, Adult Hematuria, Adult Hematuria [...] Follow these instructions at home: Medicines Take iqoq-oqt-ukrgmsj and prescription medicines only as told by [...] or the blood stops without treatment. Take qsqp-zmx-ymgsvzv and prescription medicines only as told by your health care provider. Drink enough fluid to keep your urine pale yellow. This information is not intended to replace advice given to you by your health care provider. Make sure you discuss any questions you have with your health care provider. Document Revised: 02/08/2021 Document Reviewed: 02/08/2021 Personal Medicine Patient Education 2022 [employer]. [facility] 10-27-2023 Evaluation note Includes: Assessments for all patient encounters Findings Encounter Date [Z68.31 - Body mass index [B AL] 31.0-31.9, adult] assessment of body mass index Medical Established Patient with Kassy Grey [facility] 04/19/2023 Last Documented On 3 9:11AM ; [facility] Chronic kidney disease, stage 4 Medical Established Patient with Kassy Grey [facility] 04/19/2023 Last Documented On 3 9:11AM ; [facility] Essential hypertension Medical Establish ed Patient with Kassy Grey [facility] 04/19/2023 Last Documented On 3 9:11AM ; [facility] Type 2 diabetes mellitus wit hout complication Medical Established Patient with Kassy Grey [facility] 04/19/2023 Last Documented On 3 9:11AM ; [facility] [Z68.31 - Body mass index [B AL] 31.0-31.9, adult] assessment of body mass index Medical New Patient with Kassy Grey TREASURY SPECIALIST 01/16/2023 Last Documented On 3 11:57AM ; [facility] Chronic kidney disease, stage 4 Medical New Patient with Kassy Grey TREASURY SPECIALIST 01/16/2023 Last Documented On 3 11:57AM ; [facility] Diabetes Risk Test Score was eight score 01/16/2023 Medical New Patient with Kassy Grey CNP 01/16/2023 Last Documented On 3 11:57AM ; [facility] Essential hypertension Medical New Patient with Kassy Grey CNP 01/16/2023 Last Documented On 3 11:57AM ; [facility] Screening for HIV Medical New Patient with Urban Grey CNP 01/16/2023 Last Documented On 3 11:57AM ; [facility] Type 2 diabetes mellitus wit hout complication Medical New Patient with Kassy Grey CNP 01/16/2023 Last Documented On 3 11:57AM ; [facility] Visit for: screening for dig estive system disorders Medical New Patient with Kassy Grey CNP 01/16/2023 Last Documented On 3 11:57AM ; [facility] Work Phone: 1(578) 867-145410-27-2023 Progress note* Progress note Date Encounter Last Documented by 04/19/2023 Medical Established Patient Last documented on 04/22/2023; 9:11 AM, Kassy Grey TREASURY SPECIALIST; [facility] Active Problems & Conditions - N18.4 [...] Release 24 Hour once daily per Jose Muhammad R, 0 days, 0 refills - Simvastatin 10 MG Oral Tablet One a day, 0 days, 0 refills - Vitamin D 50 MCG (2000 UT) Oral Capsule Once a day, 0 days, 0 refills Past Medical/Surgical History Reported: Medical: No previous hospitalizations. A recent examination by an rubber covering machine operator 06/14/2022 no diabetic retinopathy. : Not planning [...] 04/19/2023 11:38 am BP-Sitting L116/69 mmHg Pulse Rate-Luuajtk08 bpm Xskzjg44 in Tzlezo874 lbs Body Mass Index31.2 kg/m2 Body Surface Area2.1 m2 Oxygen Rzsvtrmjwp38 % Vital Signs: - Systolic blood pressure [...] + 0 pt : Not at all. [facility]10-27-2023 Instructions Includes: Instructions for all patient encounters Education and Decision Aids were provided during visit for: Discussed nutritional needs teach healthy choices including fruits and vegetables Last Documented On 3 11:42AM ; [facility] Patient education about a pr oper diet Last Documented On 3 11:42AM ; [facility] Discussed concerns about exe rcise : promote physical activity Last Documented On 3 11:42AM ; [facility] Referred patient to a diabet es prevention program Last Documented On 3 11:53AM ; [facility] Discussed nutritional needs teach healthy choices including fruits and vegetables Last Documented On 3 1:20PM ; [facility] Patient education about a pr oper diet Last Documented On 3 1:20PM ; [facility] Discussed concerns about exe rcise : promote physical activity Last Documented On 3 1:20PM ; [facility] Referred Patient to a Diabet es Self-Management Program Last Documented On 3 1:43PM ; [facility] [place] Work Phone: 1(329) 719-618409-19-2023 Evaluation note* Encounter Date Diagnosis Assessment Notes [...] WNL. Continue OTC VD 2000 U DAILY [facility] Other 09-15-2023 History general Narrative - Reported Includes: Medical History in patient's chart Description Last Updated A recent examination by an o phthalmologist 03/08/2023 no diabetic retinopathy 07/23/2023 Last Documented On 4 8:38AM ; [facility] Had seed implant and radiation prostate. Stage 4 renal 01/16/2023 Last Documented On 3 11:57AM ; [facility] History of diabetes mellitus 01/16/2023 Last Documented On 3 11:57AM ; [facility] History of systemic hypertension 023 Last Documented On 3 11:57AM ; [facility] No previous hospitalizations 01/16/2023 Last Documented On 3 11:57AM ; [facility] Not planning to have a baby in the next 12 months 01/16/2023 Last Documented On 3 11:57AM ; [facility] Recent immunization for flu 01/16/2023 Last Documented On 3 11:57AM ; [facility] Work Phone: 1(515) 927-382209-15-2023 History general Narrative - Reported Includes: Medical History in patient's chart Description Last Updated A recent examination by an o phthalmologist 03/08/2023 no diabetic retinopathy 07/23/2023 Last Documented On 4 8:38AM ; [facility] Had seed implant and radiation prostate. Stage 4 renal 01/16/2023 Last Documented On 3 11:57AM ; [facility] History of diabetes mellitus 01/16/2023 Last Documented On 3 11:57AM ; [facility] History of systemic hypertension 023 Last Documented On 3 11:57AM ; [facility] No previous hospitalizations 01/16/2023 Last Documented On 3 11:57AM ; [facility] Not planning to have a baby in the next 12 months 01/16/2023 Last Documented On 3 11:57AM ; [facility] Recent immunization for flu 01/16/2023 Last Documented On 3 11:57AM ; [facility] Work Phone: 1(417) 808-955607-26-2023 Instructions Includes: Instructions for all patient encounters Education and Decision Aids were provided during visit for: Discussed nutritional needs teach healthy choices including fruits and vegetables Last Documented On 3 1:20PM ; [facility] Patient education about a pr oper diet Last Documented On 3 1:20PM ; [facility] Discussed concerns about exe rcise : promote physical activity Last Documented On 3 1:20PM ; [facility] Referred Patient to a Diabet es Self-Management Program Last Documented On 3 1:43PM ; [facility] Work Phone: 1([phone]) 627-701707-26-2023 Evaluation note Includes: Assessments for all patient encounters Findings Encounter Date [Z68.31 - Body mass index [B AL] 31.0-31.9, adult] assessment of body mass index Medical New Patient with Kassy Grey TREASURY SPECIALIST 01/16/2023 Last Documented On 3 11:57AM ; [facility] Chronic kidney disease, stage 4 Medical New Patient with Kassy Grey TREASURY SPECIALIST 01/16/2023 Last Documented On 3 11:57AM ; [facility] Diabetes Risk Test Score was eight score 01/16/2023 Medical New Patient with Kassy Grey TREASURY SPECIALIST 01/16/2023 Last Documented On 3 11:57AM ; [facility] Essential hypertension Medical New Patient with Kassy Grey TREASURY SPECIALIST 01/16/2023 Last Documented On 3 11:57AM ; [facility] Screening for HIV Medical New Patient with Urban Grey TREASURY SPECIALIST 01/16/2023 Last Documented On 3 11:57AM ; [facility] Type 2 diabetes mellitus wit hout complication Medical New Patient with Kassy Grey TREASURY SPECIALIST 01/16/2023 Last Documented On 3 11:57AM ; [facility] Visit for: screening for dig estive system disorders Medical New Patient with Kassy Grey TREASURY SPECIALIST 01/16/2023 Last Documented On 3 11:57AM ; [facility] Work Phone: 1(942) 214-543007-26-2023 Progress note* Progress note Date Encounter Last Documented by 01/16/2023 Medical New Patient Last irene santacruz on 01/17/2023; 11:57 AM, Kassy Grey CNP; [facility] Active Problems & Conditions - N18.4 [...] unable now to get the Farxiga at [facility] as he [facility] the [facility] . Patient reports that he was told that he could get that medication from [facility] pharmacy for less expense. Patient [...] previous hospitalizations. A recent examination by an rubber covering machine operator 06/14/2022 no diabetic retinopathy. Immunization History: Recent [...] BP-Sitting L118/72 mmHg BP Cuff SizeRegular Pulse Rate-Iksrmqg53 bpm Respiration Rate16 per min Temp-Tapmikpz47.8 F Uwgqtk58 in Yftqxo956 lbs Body Mass Index31.7 kg/m2 Body Surface Area2.1 m2 Oxygen Zscttsmxog62 % Vital Signs: - Systolic blood pressure [...] older (3 points) [Pre-DM]. Bottom of Document Illustration [facility]04-11-2023 Hospital Discharge instructions Patient Education 10/02/2022 14:15:25 [...] With:Jose MUHAMMAD Address: [facility] [address] [place] [address] Business (1) When:04/03/2023 14:15:13 [facility]03-17-2023 Hospital Discharge instructions Patient Education 09/07/2022 12:37:29 [...] urethra. Follow these instructions at home: Take bmhp-guq-oreygos and prescription medicines only as told by [...] 06/10/2006 Document Revised: 05/05/2019 Document Reviewed: 07/15/2017 Personal Medicine Patient Education [employer]. 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 Serum creatinine is 2.0 mg/dl . last visit was 2.9 mg/dl while on ACEI. Pro/Cr 111 mg/g. No compelling reason to add ACEI. He is alreading on xiga Blood pressure is well controlled Volume status [...] to start OTC VD 2000 u DAILY [facility] Other [id number] History general Narrative - Reported Includes: Medical History in patient's chart Description Last Updated A recent examination by an o phthalmologist 06/14/2022 no diabetic retinopathy 01/17/2023 Last Documented On 3 11:57AM ; [facility] Had seed implant and radiation prostate. Stage 4 renal 01/16/2023 Last Documented On 3 11:57AM ; [facility] History of diabetes mellitus 01/16/2023 Last Documented On 3 11:57AM ; [facility] History of systemic hypertension 023 Last Documented On 3 11:57AM ; [facility] No previous hospitalizations 01/16/2023 Last Documented On 3 11:57AM ; [facility] Not planning to have a baby in the next 12 months 01/16/2023 Last Documented On 3 11:57AM ; [facility] Recent immunization for flu 01/16/2023 Last Documented On 3 11:57AM ; [facility] Work Phone: 1([phone]) 447-334712-22-2022 History general Narrative - Reported Includes: Medical History in patient's chart Description Last Updated A recent examination by an o phthalmologist 06/14/2022 no diabetic retinopathy 01/17/2023 Last Documented On 3 11:57AM ; [facility] Had seed implant and radiation prostate. Stage 4 renal 01/16/2023 Last Documented On 3 11:57AM ; [facility] History of diabetes mellitus 01/16/2023 Last Documented On 3 11:57AM ; [facility] History of systemic hypertension 023 Last Documented On 3 11:57AM ; [facility] No previous hospitalizations 01/16/2023 Last Documented On 3 11:57AM ; [facility] Not planning to have a baby in the next 12 months 01/16/2023 Last Documented On 3 11:57AM ; [facility] Recent immunization for flu 01/16/2023 Last Documented On 3 11:57AM ; [facility] Work Phone: [phone] Evaluation note* Encounter Date Diagnosis Assessment Notes Treatment Notes Treatment Clinical Notes Mar, Hyperkalemia (ICD-10 - E87.5) [facility] Other Evaluation + Plan note Future Appointments Appointment Date:09/25/2022 04:00:00 PM Scheduled Provider: Location:[facility] Appointment Type:Urology CALL PAT FT Appointment Date:10/02/2022 02:00:00 PM Scheduled Provider: Location:[facility] Appointment Type:Urology FT [facility] evaluation + Plan note Future Appointments Appointment Date:09/25/2022 04:00:00 PM Scheduled Provider: Location:[facility] Appointment Type:Urology CALL PAT FT Appointment Date:10/02/2022 02:00:00 PM Scheduled Provider: Location:[facility] Appointment Type:Urology FT Diagnostic Tests Pending * Urine [facility] Future App[facility]ments Appointment Date:04/01/2023 01:00:00 PM Scheduled Provider:[facility]AMMAD [facility] Future Appointments Appointment Date:10/04/2023 11:00:00 AM Scheduled Provider:Jose [facility]HAMMAD [facility] Type:[facility] Office Visit [facility] Evaluation + Plan note Future Appointments Appointment Date:03/30/2024 01:45:00 PM Scheduled Provider:Jose MUHAMMAD MD [facility] Type:[facility]O Office Visit [facility] evaluation + Plan note Future Appointments Appointment Date:03/30/2024 01:45:00 PM Scheduled Provider:Jose MUHAMMAD MD Location:[facility] Appointment Type:URO Office Visit Diagnostic Tests Pending * Urine Culture 09/24/23 * Urine Cytology ([facility]) [facility] Future Appointments Appointment Date:12/20/2023 11:00:00 AM Scheduled Provider:Jose MUHAMMAD MD [facility] Type:URO Office Visit Appointment Date:03/30/2024 01:45:00 PM Scheduled Provider:Jose MUHAMMAD MD [facility] Appointment Type:URO Office Visit [facility] evaluation + Plan note Future Appointments Appointment Date:12/20/2023 11:00:00 AM Scheduled Provider:Jose MUHAMMAD MD [facility] Appointment Type:URO Office Visit Appointment Date:03/30/2024 01:45:00 PM Scheduled Provider:Jose MUHAMMAD MD [facility] Appointment Type:URO Office Visit Diagnostic Tests Pending * Urine Culture 11/22/23 [facility] noteNo [employer] Other evaluation note* Diagnosis Onset Date Resolution Status Anemia acute BPH loc w/o ur obs/LUTS acut e Chronic kidney disease, stage IV (severe) acute Diabetic nephropathy associa noam with type 2 diabetes mellitus acute Hyperkalemia acute Hyperparathyroidism acute Hypertensive nephropathy acu te Hyperuricemia acute Vitamin D deficiency acute [place] Work Phone: Hispl[facility] general Narrative - Reported* Type Description Date [...] WALLL ABCESS 2019 Hospitalization History SEE ABOVE [facility] Other [facility] general Narrative - Reported* Type Description Date [...] WALL ABCESS 2019 Hospitalization History SEE ABOVE [facility] Other History of Present illness Narrative History of Present Illness not supported for this document type No History of Present Illness [facility] Work Phone: Hospital course Narrative No data available for this section [facility] Hospital Discharge instructions No data available for this section [facility] Narrative Includes: Evaluations & Outcomes for active Goals No Outcomes [facility] Work Phone: Progress note No data available for this section [facility] reason for referral (narrative)No Reason for Referral [facility] Work Phone: Review of systems Narrative - Reported Review of Systems not supported for this document type No Review of Systems [facility] Work Phone: Summary Purpose Family History No Family History Records Found Description Last Updated Maternal history of systemic hypertensio n 01/16/2023 Last Documented On 3 11:57AM ; [facility] Paternal history of oncologic disorder 0 01/16/2023 [place] history of breast neoplasm 01/16 Description Last Updated Maternal history of systemic hypertensio n 01/16/2023 Last Documented On 3 11:57AM ; [facility] Paternal history of oncologic disorder 0 01/16/2023 [place] history of breast neoplasm 01/16 Description Last Updated Maternal history of systemic hypertensio n 01/16/2023 Last Documented On 3 11:57AM ; [facility] Paternal history of oncologic disorder 0 01/16/2023 [place] history of breast neoplasm 01/16 Description Last Updated Maternal history of systemic hypertensio n 01/16/2023 Last Documented On 3 11:57AM ; [facility] Paternal history of oncologic disorder 0 01/16/2023 [place] history of breast neoplasm 01/16 Relationship Condition Age at Onset Recorded Date/T reny father Family history of colon cancer Unknown Malignant neoplasm Unknown Unknown Not Specified Heart disease Unknown Hypertension Unknown Advance Directives No Advanced Directives Records Found Directive Pat Aware Third Green Party Effective Date Reviewed Sta tus Living Will [...] Hyperparathyroidism Hypertensive nephropathy Hyperuricemia Vitamin D deficiency Chief Complaint RENAL 4 month f/u Unknown Reason for Visit Anemia BPH loc w/o [...] section and content) DATE CREATED AUTHOR 10/10/2021 [facility] dical Specialist DATE CREATED AUTHOR AUTHOR'S ORGANIZ ATION 01/26/2023 [facility] DATE CREATED AUTHOR AUTHOR'S ORGANIZ ATION 10/30/2023 [facility] DATE CREATED AUTHOR AUTHOR'S ORGANIZ ATION 11/24/2023 [facility] DATE CREATED AUTHOR AUTHOR'S ORGANIZ ATION 12/11/2023 [facility] d[facility] Specialists EPIC DATE CREATED AUTHOR AUTHOR'S ORGANIZ ATION 12/14/2023 [facility] DATE CREATED AUTHOR AUTHOR'S ORGANIZ ATION 12/14/2023 [facility] REASON FOR VISIT (unrecogniz ed section and content) ClinicalRENAL 3 month Follow upKIDNEY / BALEULALIOER ECHO USRENAL 4 month Follow upRENAL 4 month Follow up Patient Care team informatio n (unrecognized section and content) Team Status: Active Member Role Status Natanael Nix MD Primary Care Provider Active Team Status: Inactive Member Role Status Natanael Nix MD Primary Care Provider Active S tart: November 19, 2023 End: November 19, 2023 Braulio Linares MD Attending Provider Active Star t: November 19, 2023 End: November 19, 2023 Team Status: Inactive Member Role Status Natanael Nix MD Primary Care Provider Active S tart: December 12, 2023 End: December 12, 2023 Jose Muhammad MD Attending Provider Active St art: December 12, 2023 End: December 12, 2023 Goals (unrecognized section and content) Goals [...] BE BASED ON THE PRIMARY CLINICAL RECORDS. [email or web address] [facility]. provides no warranty or guarantee of the accuracy or completeness of information in this document.
--- NOTE | 2023-12-14 13:27 | ED_ITS ---
HPI - Male Genitourinary General Chief complaint: Urogenital-Male Stated complaint: BLOOD IN URINE Time Seen by Provider: 12/14/23 13:27 Source: patient Mode of arrival: walk-in History of Present Illness HPI Narrative: This patient is here with his for evaluation of hematuria. He just had a surgical procedure done 2 days ago at [facility]. Dr. Muhammad was the surgeon and they did remove several bladder tumors. They placed him on an antibiotic. They started noticing a little bit of blood in his Love catheter last night and came to the ER. He is not having any fever shakes or chills. He is not uncomfortable to belly is does not seem to be distended. He also says he has not had a bowel movement for 3 days. He does take Metamucil. He is compliant with his antibiotic therapy. Related Data Home Medications ?Medication ?Instructions ?Recorded ?Confirmed acetaminophen 500 mg capsule 1,000 mg PO DAILY 11/26/23 12/12/23 allopurinol 100 mg tablet 100 mg PO BID 11/26/23 12/12/23 aspirin 81 mg capsule 81 mg PO DAILY 11/26/23 12/12/23 carvedilol 3.125 mg tablet 3.125 mg PO Q12H 11/26/23 12/12/23 cholecalciferol (vitamin D3) 50 2,000 unit PO DAILY 11/26/23 12/12/23 mcg (2,000 unit) capsule dapagliflozin propanediol 10 mg 10 mg PO DAILY 11/26/23 12/12/23 tablet (Farxiga) furosemide 20 mg tablet 20 mg PO BID 11/26/23 12/12/23 glimepiride 4 mg tablet 4 mg PO BID 11/26/23 12/12/23 omega 7-bov-eno-fish oil 1,200 mg cap PO 11/26/23 (144 mg-216 mg) capsule (Fish Oil) psyllium husk 3.4 gram/5.4 gram 1 tbsp PO DAILY 11/26/23 12/12/23 oral powder (Metamucil) simvastatin 10 mg tablet 10 mg PO DAILY 11/26/23 12/12/23 solifenacin 10 mg tablet 10 mg PO DAILY 11/26/23 12/12/23 tamsulosin 0.4 mg capsule 0.4 mg PO DAILY 11/26/23 12/12/23 Previous Rx's ?Medication ?Instructions ?Recorded cephalexin 250 mg capsule 250 mg PO BID 7 days #14 caps 12/12/23 Allergies Allergy/AdvReac Type Severity Reaction Status Date / Time Iodinated Contrast Media Allergy Hives Verified 11/26/23 11:18 Penicillins Allergy Hives Verified 11/26/23 11:18 [facility] Medical History (Updated 12/14/23 @ 13:49 by Richard Tee MD) COVID-19 ?U07.1 - COVID-19 (ICD-10) Constipation ?K59.00 - Constipation, unspecified (ICD-10) Urge incontinence ?N39.41 - Urge incontinence (ICD-10) Nocturia ?R35.1 - Nocturia (ICD-10) Kidney stones ?N20.0 - Calculus of kidney (ICD-10) Dysuria ?R30.0 - Dysuria (ICD-10) BPH with obstruction/lower urinary tract symptoms ?N40.1 - Benign prostatic hyperplasia with lower urinary tract symptoms (ICD- 10) ?N13.8 - Other obstructive and reflux uropathy (ICD-10) Asymptomatic microscopic hematuria ?R31.21 - Asymptomatic microscopic hematuria (ICD-10) Encounter for incision and drainage procedure ?Z76.89 - Persons encountering health services in other specified circumstances (ICD-10) Seasonal allergies ?J30.2 - Other seasonal allergic rhinitis (ICD-10) History of brachytherapy ?Z92.3 - Personal history of irradiation (ICD-10) Diabetes ?E11.9 - Type 2 diabetes mellitus without complications (ICD-10) Renal cyst ?N28.1 - Cyst of kidney, acquired (ICD-10) Hematuria ?R31.9 - Hematuria, unspecified (ICD-10) Bladder tumor ?D49.4 - Neoplasm of unspecified behavior of bladder (ICD-10) Prostate cancer ?C61 - Malignant neoplasm of prostate (ICD-10) Arthritis ?M19.90 - Unspecified osteoarthritis, unspecified site (ICD-10) Chronic renal insufficiency ?N18.9 - Chronic kidney disease, unspecified (ICD-10) Angina pectoris ?I20.9 - Angina pectoris, unspecified (ICD-10) Dyslipidemia ?E78.5 - Hyperlipidemia, unspecified (ICD-10) Hematoma of abdominal wall ?S30.1XXA - Contusion of abdominal wall, initial encounter (ICD-10) Mass of anterior abdominal wall ?R22.2 - Localized swelling, mass and lump, trunk (ICD-10) CAD (coronary artery disease) ?I25.10 - Atherosclerotic heart disease of [place] coronary artery without angina pectoris (ICD-10) Hypertension ?I10 - Essential (primary) hypertension (ICD-10) Surgical History (Updated 11/26/23 @ 11:13 by Kassy Delgado NP) H/O cystoscopy ?Z98.890 - Other specified postprocedural states (ICD-10) Hx of tonsillectomy ?Z90.89 - Acquired absence of other organs (ICD-10) History of prostate surgery ?Z98.890 - Other specified postprocedural states (ICD-10) History of hernia repair ?Z98.890 - Other specified postprocedural states (ICD-10) ?Z87.19 - Personal history of other diseases of the digestive system (ICD-10) History of appendectomy ?Z90.49 - Acquired absence of other specified parts of digestive tract (ICD- 10) Hx of CABG ?Z95.1 - Presence of aortocoronary bypass graft (ICD-10) H/O colonoscopy ?Z98.890 - Other specified postprocedural states (ICD-10) Family History (Updated 11/26/23 @ 11:26 by Kassy Delgado NP) Other Breast cancer Colon cancer Family history of myocardial infarction Heart disease Social History (Updated 11/26/23 @ 11:23 by Kassy Delgado NP) Within the past year, how often did you have a drink containing alcohol: never Score interpretation: A score less than 4 is consistent with normal alcohol consumption. Smoking status: Never smoker Non-prescribed substance use: denies use Highest level of school completed/degree received: high school graduate Exam Narrative Exam Narrative: Awake alert very pleasant gentleman here with his . Examination the Love catheter has reddish tinged urine Love catheter output. His abdomen is not distended and is nontender. His color is good his skin is warm and dry his vital signs are essentially stable he is afebrile. He does not have any back or flank pain. We will do a bladder scan and make sure the Love catheter is draining. He is on Keflex. We will send the urine down as well Constitutional Vital Signs, click to edit/add: Last Vital Signs Temp 98 F 12/14/23 13:17 Pulse 69 12/14/23 13:17 Resp 18 12/14/23 13:17 BP 142/73 H 12/14/23 13:17 Pulse Ox 95 12/14/23 13:17 Course Vital Signs Vital signs: Vital Signs Temperature 98 F 12/14/23 13:17 Pulse Rate 69 12/14/23 13:17 Respiratory Rate 18 12/14/23 13:17 Blood Pressure 142/73 H 12/14/23 13:17 Pulse Oximetry 95 12/14/23 13:17 Temperature 98 F 12/14/23 13:17 Pulse Rate 69 12/14/23 13:17 Respiratory Rate 18 12/14/23 13:17 Blood Pressure 142/73 H 12/14/23 13:17 Pulse Oximetry 95 12/14/23 13:17 MDM - Male Genitourinary MDM Narrative Medical decision making narrative: This patient's bladder scan is 0, confirming that the Love catheter is draining with no evidence of obstruction. He currently is taking antibiotics. He will follow-up with his urologist this week. He can try some [id number] magnesium citrate for constipation Discharge Plan Discharge Stand Alone Forms: Portal Instructions Chief Complaint: Urogenital-Male Clinical Impression: Hematuria Patient Disposition: Home, Self-Care Time of Disposition Decision: 13:49 Prescriptions / Home Meds: No Action allopurinol 100 mg tablet 100 mg PO BID carvedilol 3.125 mg tablet 3.125 mg PO Q12H dapagliflozin propanediol [Farxiga] 10 mg tablet 10 mg PO DAILY furosemide 20 mg tablet 20 mg PO BID glimepiride 4 mg tablet 4 mg PO BID simvastatin 10 mg tablet 10 mg PO DAILY solifenacin 10 mg tablet 10 mg PO DAILY tamsulosin 0.4 mg capsule 0.4 mg PO DAILY aspirin 81 mg capsule 81 mg PO DAILY Metamucil 3.4 gram/5.4 gram powder 1 tbsp PO DAILY Rx Instructions: mix into at least 8 oz of water or juice before administering omega 3-joj-gjp-fish oil [Fish Oil] 1,200 (144-216) mg capsule PO acetaminophen 500 mg capsule 1,000 mg PO DAILY cholecalciferol (vitamin D3) 50 mcg (2,000 unit) capsule 2,000 unit PO DAILY cephalexin 250 mg capsule 250 mg PO BID 7 Days Qty: 14 0RF Print Language: Hungarian Additional Instructions: Finish your antibiotic, take plenty of fluids, return if bladder becomes obstructed. See your urologist as planned Referrals: BILLY NIX [Primary Care Provider] - 1 week
[2023-12-14 13:49] LABS: Clarity Urine CLEAR (CLEAR); Color Urine DK. RED (YELLOW)
[2023-12-14 13:53] LABS: Bilirubin Urine COLOR INTERFERENCE (NEGATIVE); Glucose Urine UA COLOR INTERFERENCE mg/dL (NEGATIVE); Ketones Urine COLOR INTERFERENCE mg/dL (NEGATIVE); Protein Urine COLOR INTERFERENCE mg/dL (NEG/TRACE); Urine Microscopic Indicated YES; pH Urine COLOR INTERFERENCE (5.0-9.0)
[2023-12-14 13:54] LABS: Blood Urine COLOR INTERFERENCE (NEGATIVE); Leukocyte Esterase Urine COLOR INTERFERENCE (NEGATIVE); Nitrite Urine COLOR INTERFERENCE (NEGATIVE); Urobilinogen Urine COLOR INTERFERENCE EU/dL (0.2-1.0)
[2023-12-14 14:09] LABS: Bacteria Urine NONE SEEN #/HPF (NONE SEEN); Cast Seen? NONE SEEN #/LPF (NONE SEEN); Crystals Seen? None Seen #/HPF (None Seen); Mucus Urine NONE SEEN (NONE SEEN); RBC Urine >100 #/HPF (0-2); Squamous Epithelial Cell Urine RARE #/LPF (NONE/RARE)
[2023-12-14 14:10] LABS: Urine Culture Indicated YES
== END 2023-12-14 13:57 | disposition home or self-care (01) ==
PROVIDERS: Emergency Provider Emergency Medicine Emergency Medical Services; PCP Family Medicine
DX: R31.9 Hematuria, unspecified (principal); Z96.0 Presence of urogenital implants; Z98.890 Other specified postprocedural states
CPT/HCPCS: 51798; 81001; 87086; 99283